=== PATIENT | male | born 1985 | race Two or more races ===

== ENCOUNTER 2025-01-26 16:07 | Inpatient (IN) | payer MEDICAID, OTHER, SELFPAY ==
[2025-01-26 16:29] VITALS: BP 166/116; PULSE 108; RESP 16; TEMP 36.6; O2SAT 97
[2025-01-26 17:00] VITALS: BP 155/104; PULSE 92
[2025-01-26 18:00] VITALS: BP 161/110; PULSE 100
--- NOTE | 2025-01-26 18:07 | PC.ADMIT ---
Marquez was BIBA from [facility]. Upon arrival, he is alert, oriented to person only. But there is a language barrier (He is from [facility] and speaks kriol). He denied ever being in a mental health facility. He was cooperative with skin and safety check. His skin check was unremarkable, except for a horizontal scar across his throat. When asked why he is here, he repeatedly touches his throat, I need help with my throat, there is something in there, I feel it. He states I eat or drink and it goes down but (he gestures upward) I feel He manages to make his needs known. When asked about the scar, he became tearful and said I killed myself , four months ago . Through the clay miner yamilet he was able to admit he still wanted to stab himself , but agrees to stay safe here and seek staff if needed. He is not a smoker, does not drink alcohol or use any illicit substances. He is [employer] and has no allergies or dietary restrictions. He has not been compliant with his medications, mostly due to the concerns about his throat. He last took his lisinopril 2 days ago. His BP is elevated, hospitalist consult placed and this nurse paged him regarding BP results. Orders obtained. He signed a CV with Jyoti Ramos NP. He is on 15 minute safety checks. This nurse gave him an orientation sheet that is polish/kriol for his assistance.
--- OUTSIDE RECORDS SUMMARY | 2025-01-26 18:20 | XMS_ITS | Encounter Summary ---
Author Organization [employer] Address [address] [place] [address] Care Team Providers Care Digital Imaging Technician Name Role Phone Miguel Kwok MD Primary Care Provider [phone] Reason for Visit * Reason Comments Referral ENT trouble swallowing Encounter Details Date Type Department Care Team (Late st Contact Info) Description 01/23/2025 8:40 AM EDT Office Visit [facility] MAIN ADULT [address] [place] [address] Miguel Kwok MD [address] [place] [address] Bloating (Primary Dx) Social History Tobacco Use Types Packs/Day Years Used Date Smoking Tobacco: Never Smokeless Tobacco: Never Alcohol Use Standard Drinks/Week Comments Not Currently 0 (1 standard drink = 0.6 oz pur e alcohol) stop after stroe may 2024 Depression Answer Date Recorded Patient Health Questionnaire-9 Score 14 10/24/2024 Patient Health Questionnaire-9 Score 14 10/24/2024 Last PHQ-9: Questionnaire Data Not on file 0 10/24/2024 Housing Stability Answer Date Recorded What is your housing situation today? I do not have housing (Staying with others, in a hotel, in a snf, living outside on the street, on a beach, in a car, or in a park 11/14/[address] you li ve. Do you have problems with any of the following? None of the above 11/14/2024 Food Insecurity Answer Date Recorded Within the past 12 months, y ou worried that your food would run out before you got money to buy more: Never True 08/04/2024 Within the past 12 months,th e food you bought just didn't last and you didn't have enough money to get more: Never True Transportation Answer Date Recorded In the past 12 months, has l ack of transportation kept you from medical appts, meetings, work or from getting things needed for daily living? No 11/14/2024 Utilities Answer Date Recorded In the past 12 months, has t he electric, gas, oil or water company threatened to shut off services in your home? No 08/04/2024 Depression Answer Date Recorded Patient Health Questionnaire-2 Score 2 11/14/2024 Internet Access Answer Date Recorded Internet Access Q1 Yes 08/04/2024 Internet Access Q2 Not on file 08/04/2024 Sex and Gender Information Value Date Recorded Sex Assigned at Male 08/12/2022 2:34 PM EDT Legal Sex Male 2:34 PM EDT Gender Identity Male 09/12/2022 2:01 PM EST Sexual Orientation Choose not to disclose 2022 2:01 PM EDT documented as of this encounter Last Filed Vital Signs Vital Sign Reading Time Taken Comments Blood Pressure 138/98 01/23/2025 9:15 AM EDT Pulse 100 01/23/2025 9:13 AM EDT Temperature 36.4 ??C (97.5 ??F) 01/23/2025 9:13 AM ED T Respiratory Rate - - Oxygen Saturation 98% 01/23/2025 9:13 AM EDT Inhaled Oxygen Concentration - - Weight 67.3 kg (148 lb 6.4 oz) 01/23/2025 9:13 A M EDT Height 173.7 cm (5' 8.4 ) 01/23/2025 9:13 AM EDT Body Mass Index 22.3 01/23/2025 9:13 AM EDT documented in this encounter Progress Notes * Miguel Kwok MD - 01/23/2025 8:40 AM EDT [address] [id number] [email or web address] History of Present Illness: Patient is a 39 y.o. male who presents today for: F/u Abdominal discomfort Patient complains of abdominal discomfot and says that he has gas in the stomach Reports of bloating Throat discomfort Patient complains of throat discomfort States he feels that throat discomfort due to gastritis Anxiety Patient states he still has anxiety with sleep disturbances Patient's specialist appt is pending Vital Signs Vitals: 01/23/25 0913 01/23/25 0915 BP: (!) 143/101 (!) 138/98 BP Location: Left arm Right arm Patient Position: Sitting Sitting BP Cuff Size: Adult Adult Pulse: 100 Temp: 97.5 ??F (36.4 ??C) TempSrc: Oral SpO2: 98% Weight: 148 lb 6.4 oz (67.3 kg) Height: 5' 8.4 (1.737 m) Review of Systems ROS negative expect as stated in HPI Physical Exam Body mass index is 22.3 kg/m??. Physical Exam Constitutional: Appearance: Normal appearance. Comments: Pt is able to talk without muffling of sound. HENT: Head: Normocephalic and atraumatic. Cardiovascular: Rate and Rhythm: Normal rate and regular rhythm. Pulmonary: Effort: Pulmonary effort is normal. Breath sounds: Normal breath sounds. Skin: General: Skin is warm. Comments: There is a scar noticed on the lower anterior neck, mild tenderness around the scar, no Erythema or edema Neurological: Mental Status: He is alert. Psychiatric: Mood and Affect: Affect is flat. Assessment and Plan Patient is a 39 y.o. male: Bloating Likely GERD Edu the Patient on diet modifications and given printout Rx pantoprazole 40mg Insomnia Patient also complains of anxiety Recommended breathing exercises and fast walking for 30 min Diagnoses and all orders for this visit: Bloating No follow-ups on file. Medical History No Known Allergies Current Outpatient Medications on File Prior to Visit Medication Sig Dispense Refill acetaminophen (Tylenol) 500 MG tablet Take 1 tablet (500 mg) by mouth every 8 (eight) hours if needed for moderate pain or mild pain. (Patient not taking: Reported on 01/23/2025) 30 tablet 2 aluminum-magnesium hydroxide-simethicone (Maalox) 200-200-20 MG/5ML suspension Take 30 mL by mouth before breakfast, before lunch, before evening meal, and at bedtime. (Patient not taking: Reported on 01/23/2025) 355 mL 1 aspirin 81 MG chewable tablet Chew 1 tablet (81 mg) Once per day. (Patient not taking: Reported on 01/23/2025) 90 tablet 1 atorvastatin (Lipitor) 80 MG tablet Take 1 tablet (80 mg) by mouth Once per day. (Patient not taking: Reported on 01/23/2025) 90 tablet 1 Benzocaine-Menthol (Cepacol Extra Strength) 15-2.6 MG lozenge Dissolve 1 lozenge in the mouth every2 (two) hours. (Patient not taking: Reported on 01/23/2025) 60 lozenge 1 buPROPion XL (Wellbutrin XL) 150 MG 24 hr tablet Take 1 tablet (150 mg) by mouth Once per day. Do not crush, chew, or split. (Patient not taking: Reported on 01/23/2025) buPROPion XL (Wellbutrin XL) 150 MG 24 hr tablet take 1 tablet by mouth every morning for 30 days (Patient not taking: Reported on 01/23/2025) 30 tablet 0 Diclofenac Sodium 1 % gel Apply 2 g topically 3 times daily. (Patient not taking: Reported on 01/23/2025) 100 g 1 escitalopram (Lexapro) 20 MG tablet Take 1 tablet (20 mg) by mouth Once per day. (Patient not taking: Reported on 01/23/2025) 30 tablet 3 hydrOXYzine HCl (Atarax) 25 MG tablet Take 1 tablet (25 mg) by mouth every 8 (eight) hours if needed for itching. Do not drive or operate machinery while being on the med (Patient not taking: Reported on 01/23/2025) 90 tablet 1 hydrOXYzine HCl (Atarax) 25 MG tablet take 1 tablet by mouth every 8 hours as needed for anxiety (Patient not taking: Reported on 01/23/2025) 90 tablet 0 lisinopril 40 MG tablet take 1 tablet by mouth every day for hypertension (Patient not taking: Reported on 01/23/2025) 30 tablet 2 losartan (Cozaar) 100 MG tablet Take 1 tablet (100 mg) by mouth Once per day. (Patient not taking: Reported on 01/23/2025) 90 tablet 3 LYCOPENE PO Take 1 tablet by mouth Once per day. (Patient not taking: Reported on 11/14/2024) OLANZapine (ZyPREXA) 10 MG tablet Take 1 tablet (10 mg) by mouth at bedtime. (Patient not taking: Reported on 12/28/2024) OLANZapine (ZyPREXA) 10 MG tablet take 1 tablet by mouth once a day at bedtime (Patient not taking:Reported on 01/23/2025) 30 tablet 0 OLANZapine (ZyPREXA) 5 MG tablet Take 1 tablet (5 mg) by mouth Once per day. (Patient not taking: Reported on 01/23/2025) OLANZapine (ZyPREXA) 5 MG tablet Take 1 tablet by mouth at bedtime (Patient not taking: Reported on01/23/2025) 30 tablet 1 pantoprazole (ProtoNix) 40 MG EC tablet Take 1 tablet (40 mg) by mouth before breakfast. Do not crush, chew, or split. (Patient not taking: Reported on 01/23/2025) pantoprazole (ProtoNix) 40 MG EC tablet Take 1 tablet by mouth daily. (Patient not taking: Reportedon 01/23/2025) 30 tablet 0 ramelteon (Rozerem) 8 MG tablet Take 1 tablet (8 mg) by mouth at bedtime. (Patient not taking: Reported on 01/23/2025) triamcinolone (Kenalog) 0.5 % cream Apply topically 2 times daily. (Patient not taking: Reported on01/23/2025) 45 g 1 venlafaxine XR (Effexor XR) 75 MG 24 hr capsule take 3 cap Orally daily (Patient not taking: Reported on 01/23/2025) 90 capsule 2 No current facility-administered medications on file prior to visit. No past medical history on file. No past surgical history on file. Family History Problem Relation Name Age of Onset No Known Problems Mother No Known Problems Father Social History Socioeconomic History Marital status: Single Spouse name: Not on file Number of children: Not on file Years of education: Not on file Highest education level: Not on file Occupational History Not on file Tobacco Use Smoking status: Never Smokeless tobacco: Never Vaping Use Vaping status: Never Used Substance and Sexual Activity Alcohol use: Not Currently Comment: stop after stroe may 2024 Drug use: Never Sexual activity: Not on file Other Topics Concern Not on file Social History Narrative Not on file Social Drivers of Health Food Insecurity: Low Risk (08/04/2024) Food Insecurity Within the past 12 months, you worried that your food would run out before you got money to buy more:: Never True Within the past 12 months,the food you bought just didn't last and you didn't have enough money to get more: : Never True Transportation Needs: Low Risk (11/14/2024) Transportation In the past 12 months, has lack of transportation kept you from medical appts, meetings, work or from getting things needed for daily living? : No Recent Concern: Transportation Needs - High Risk (10/24/2024) Transportation In the past 12 months, has lack of transportation kept you from medical appts, meetings, work or from getting things needed for daily living? : Yes, it has kept me from medical appointments or getting medications. Intimate Partner Violence: Not At Risk (09/30/2024) Received from [facility] Intimate Partner Violence Are you denied basic needs such as food, clothing, or medical care?: No In the past 12 months have you been in a relationship with a person who hurts, threatens, or tries to control you?: No Are you denied basic needs such as food, clothing, or medical care?: No In the past 12 months have you been in a relationship with a person who hurts, threatens, or tries to control you?: No Housing Stability: High Risk (11/14/2024) Housing Stability What is your housing situation today?: I do not have housing (Staying with others, in a hotel, in ashelter, living outside on the street, on a beach, in a car, or in a park Think about the place you live. Do you have problems with any of the following? : None of the above Miguel Kwok MD documented in this encounter Plan of Treatment Upcoming Encounters Date Type Department Care Team (Late st Contact Info) Description 02/09/2025 9:40 AM EDT Office Visit [facility] MAIN ADULT [address] [place] [id number] Miguel Kwok MD [address] [place] [phone] documented as of this encounter Visit Diagnoses Diagnosis Bloating- Primary Flatulence, eructation, and gas pain documented in this encounter Additional Health Concerns Assessment Noted Time PHQ-9 Depression Total Score: 14 025 12:48 PM EST documented as of this encounter Care Teams Digital Imaging Technician Relationship Specialty Start Date End Date Miguel Kwok MD [address] [place] [address] PCP - General 10/12/21 documented as of this encounter
--- OUTSIDE RECORDS SUMMARY | 2025-01-26 18:21 | XMS_ITS | Encounter Summary ---
Author Organization [employer] Address [address] 7 [place] [address] Care Team Providers Care Curatorial Specialist Name Role Phone Miguel Kwok MD Primary Care Provider [phone] Reason for Visit * Reason Onset Date Comments Advice Only 08/29/2024 Encounter Details Date Type Department Care Team ([facility] Contact Info) Description 08/29/2024 Telephone [facility] [address] [place] [address] Miguel Kwok MD [address] [place] [address] Advice Only Social History Tobacco Use Types Packs/Day Years Used Date Smoking Tobacco: Never Smokeless Tobacco: Never Alcohol Use Standard Drinks/Week Comments Never 0 (1 standard drink = 0.6 oz pur e alcohol) Housing Stability Answer Date Recorded What is your housing situation today? I have patricio espinal 08/04/[address] you li ve. Do you have problems with any of the following? None of the above 08/04/2024 Food Insecurity Answer Date Recorded Within the [...] getting things needed for daily living? No 08/04/2024 Utilities Answer Date Recorded In the past 12 months, has t he electric, gas, oil or water company threatened to shut off services in your home? No 08/04/2024 Depression Answer Date Recorded Patient Health Questionnaire-2 Score 0 08/04/2024 Internet Access Answer Date Recorded Internet Access Q1 Yes 08/04/2024 Internet Access Q2 Not on file 08/04/2024 Sex and Gender Information Value Date Recorded Sex Assigned at Male 08/12/2022 2:34 PM EDT Legal Sex Male 2:34 PM EDT Gender Identity Male 09/12/2022 2:01 PM EST Sexual Orientation Choose not to disclose 2022 2:01 PM EDT documented as of this encounter Miscellaneous Notes * Telephone Encounter - Robert Edna - 08/29/2024 10:29 AM EST Comments Patient Needs A. Letter From His Doctor Stating That He Is Able To Work. Pt Needs This As Soon As Possible Because He's Been Calling for 2. Weeks Now. Romansh Creole Language Assessment Notes 1st attempt no answer. msrn 2nd attempt no answer. msrn documented in this encounter Plan of Treatment Upcoming Encounters Date Type Department Care Team (Late st Contact Info) Description 02/09/2025 9:40 AM EDT Office Visit [facility] MAIN ADULT [address] [place] [phone] Miguel Kwok MD [address] [place] [phone] documented as of this encounter Visit Diagnoses Not on filedocumented in this encounter Care Teams Curatorial Specialist Relationship Specialty Start Date End Date Miguel Kwok MD [address] [place] [phone] PCP - General 10/12/21 documented as of this encounter
--- OUTSIDE RECORDS SUMMARY | 2025-01-26 18:21 | XMS_ITS | Encounter Summary ---
Author Organization [facility] Address [address] [place] [address] Phone Care Team Providers Care Digital Campaign Manager Name Role Phone Unavailable Primary Care Provider Unavailabl e Encounter Details Date Type Department Care Team (Late st Contact Info) Description 12/12/2019 Telephone [facility] [address] [place] [address] Tasneem Harp MD, PhD [address] [place] [phone] Social History Tobacco Use Types Packs/Day Years Used Date Smoking Tobacco: Never Sex and Gender Information Value Date Recorded Sex Assigned at Male 06/17/2024 3:40 PM EDT Legal Sex Male 8:06 AM EDT Gender Identity Male 06/17/2024 3:40 PM EDT Sexual Orientation Straight 01/24/2025 9: 21 AM EDT documented as of this encounter Plan of Treatment Not on file documented as of this encounter Visit Diagnoses Not on filedocumented in this encounter Additional Health Concerns Infection Onset Date Last Indicated Resolved Time COVID-19 Rule Out 2020 2020 2020 3:50 PM EDT documented as of this encounter
--- OUTSIDE RECORDS SUMMARY | 2025-01-26 18:21 | XMS_ITS | Clinical Summary ---
Author Organization [employer] Address [address] [facility] 7t [place] [address] Care Team Providers Care Computerized Machine Fabric Cutter Name Role Phone Miguel Kwok MD Primary Care Provider [phone] Allergies No known active allergies Medications * This document contains information received from the source organization and may not represent a complete record from that organization. LYCOPENE PO Take 1 tablet by mouth Once per day. 025 Active aspirin 81 MG chewable tabletIndications :Mixed hyperlipidemia Chew 1 tablet (81 mg) Once per day. 90 tablet 1 025 Active Additional Information Patient not taking.Reported on 01/23/2025 atorvastatin (Lipitor) 80 MG tabletIndications :Mixed hyperlipidemia Take 1 tablet (80 mg) by mouth Once per day. 90 tablet 1 025 Active Additional Information Patient not taking.Reported on 01/23/2025 escitalopram (Lexapro) 20 MG tabletIndications :Moderate episode of recurrent major depressive disorder (CMS/HCC) Take 1 tablet (20 mg) by mouth Once per day. 30 tablet 3 025 Active Additional Information Patient not taking.Reported on 01/23/2025 losartan (Cozaar) 100 MG tabletIndications :HTN (hypertension), benign Take 1 tablet (100 mg) by mouth Once per day. 90 tablet 3 12/01/19 25 4:07 PM EST 025 2025 Active Additional Information Patient not taking.Reported on 01/23/2025 triamcinolone (Kenalog) 0.5 % creamIndications: Irritant contact dermatitis due to cosmetics Apply topically 2 times daily. 45 g 1 12/01/19 25 4:07 PM EST 025 Active Additional Information Patient not taking.Reported on 01/23/2025 OLANZapine (ZyPREXA) 10 MG tablet Take 1 tablet (10 mg) by mouth at bedtime. Active Additional Information Patient not taking.Reported on 12/28/2024 ramelteon (Rozerem) 8 MG tablet Take 1 tablet (8 mg) by mouth at bedtime. 025 2025 Active Additional Information Patient not taking.Reported on 01/23/2025 hydrOXYzine HCl (Atarax) 25 MG tablet Take 1 tablet (25 mg) by mouth every 8 (eight) hours if needed for itching. Do not drive or operate machinery while being on the med 90 tablet 1 Active Additional Information Patient not taking.Reported on 01/23/2025 buPROPion XL (Wellbutrin XL) 150 MG 24 hr tablet Take 1 tablet (150 mg) by mouth Once per day. Do not crush, chew, or split. Active Additional Information Patient not taking.Reported on 01/23/2025 OLANZapine (ZyPREXA) 5 MG tablet Take 1 tablet (5 mg) by mouth Once per day. Active Additional Information Patient not taking.Reported on 01/23/2025 pantoprazole (ProtoNix) 40 MG EC tablet Take 1 tablet (40 mg) by mouth before breakfast. Do not crush, chew, or split. Active Additional Information Patient not taking.Reported on 01/23/2025 pantoprazole (ProtoNix) 40 MG EC tablet Take 1 tablet by mouth daily. 30 tablet 12/18/19 25 9:11 AM EST 025 Active Additional Information Patient not taking.Reported on 01/23/2025 buPROPion XL (Wellbutrin XL) 150 MG 24 hr tablet take 1 tablet by mouth every morning for 30 days 30 tablet 12/18/19 25 9:11 AM EST 025 Active Additional Information Patient not taking.Reported on 01/23/2025 lisinopril 40 MG tablet take 1 tablet by mouth every day for hypertension 30 tablet 2 12/18/19 25 9:11 AM EST 025 Active Additional Information Patient not taking.Reported on 01/23/2025 OLANZapine (ZyPREXA) 10 MG tablet take 1 tablet by mouth once a day at bedtime 30 tablet 12/18/19 9:11 AM EST Active Additional Information Patient not taking.Reported on 01/23/2025 hydrOXYzine HCl (Atarax) 25 MG tablet take 1 tablet by mouth every 8 hours as needed for anxiety 90 tablet 12/18/19 9:11 AM EST Active Additional Information Patient not taking.Reported on 01/23/2025 OLANZapine (ZyPREXA) 5 MG tablet Take 1 tablet by mouth at bedtime 30 tablet 1 12/18/19 9:11 AM EST 025 Active Additional Information Patient not taking.Reported on 01/23/2025 Diclofenac Sodium 1 % gelIndications:Ne ck pain Apply 2 g topically 3 times daily. 100 g 1 12/29/19 12:28 PM EDT 025 Active Additional Information Patient not taking.Reported on 01/23/2025 Benzocaine-Mentho l (Cepacol Extra Strength) 15-2.6 MG lozengeIndication s:Sore throat Dissolve 1 lozenge in the mouth every 2 (two) hours. 60 lozenge 1 12/29/19 12:28 PM EDT Active Additional Information Patient not taking.Reported on 01/23/2025 aluminum-magnesiu m hydroxide-simethi cone (Maalox) 200-200-20 MG/5ML suspensionIndicat ions:Sore throat Take 30 mL by mouth before breakfast, before lunch, before evening meal, and at bedtime. 355 mL 1 12/29/19 12:28 PM EDT 025 Active Additional Information Patient not taking.Reported on 01/23/2025 acetaminophen (Tylenol) 500 MG tabletIndications :Palpitation,Pene trating traumatic injury of neck,Sore throat Take 1 tablet (500 mg) by mouth every 8 (eight) hours if needed for moderate pain or mild pain. 30 tablet 2 12/29/19 12:28 PM EDT 025 Active Additional Information Patient not taking.Reported on 01/23/2025 venlafaxine XR (Effexor XR) 75 MG 24 hr capsule take 3 cap Orally daily 90 capsule 2 Active Additional Information Patient not taking.Reported on 01/23/2025 Benzocaine-Mentho l (Cepacol Extra Strength) 15-2.6 MG lozengeIndication s:Sore throat Dissolve 1 lozenge in the mouth every 2 (two) hours. 20 lozenge 1 025 2024 Discontinued Active Problems Problem Noted Date Diagnosed Date Financial insecurity 11/16/2024 Housing insecurity 11/03/2024 Social problem 10/24/2024 Moderate episode of recurrent major depressive d isorder 10/24/2024 DOMINICK (generalized anxiety disorder) 10/24/2024 Unemployment 10/24/2024 Self-injurious behavior 10/24/2024 Suicide attempt 09/30/2024 Penetrating traumatic injury of neck 09/19/2024 Cerebrovascular accident (CV A) due to thrombosis of cerebral artery 06/16/2024 Back strain 04/15/2023 Dental infection 04/15/2023 Fracture of proximal phalanx of finger 3 Hypertriglyceridemia 06/12/2022 Unspecified pterygium of left eye 12/12/2019 Overview (04/15/2023): 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 F/u 1 week for recheck with Dr. Palomares in [place] because he is unable to travel to [facility] next week, sooner if increased pain, redness, discharge, or as needed. As long as cornea epi defect healed then, can see me in [place] Jun 05 for POM 1 check with refraction. 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 Date Type Department Care Team Description 01/23/2025 8:40 AM EDT Office Visit [facility] MAIN ADULT [address] [place] [address] Miguel Kwok MD Bloating (Primary Dx) 12/28/2024 2:20 PM EDT Office Visit [facility] MAIN ADULT [address] [place] [address] Miguel Kwok MD Neck pain (Primary Dx); Palpitation; Anxiety; Penetrating traumatic injury of neck; Sore throat 12/28/2024 Telephone [facility] FINANCIAL ASSIST [address] [place] [address] MarinaAlisa Claire 12/28/2024 Telephone [facility] FINANCIAL ASSIST [address] [place] [address] GrayAlisa Claire 12/16/2024 9:40 AM EST Office Visit [facility] MAIN ADULT [address] [place] [address] Miguel Kwok MD Chronic superficial gastritis without bleeding (Primary Dx); Mood disorder due to known physiological condition, unspecified; Irritant contact dermatitis due to cosmetics 12/01/2024 3:00 PM EST Office Visit [facility] MAIN ADULT [address] [place] [address] Miguel Kwok MD Irritant contact dermatitis due to cosmetics (Primary Dx); Mixed hyperlipidemia; HTN (hypertension), benign; Moderate episode of recurrent major depressive disorder ([facility]/HCC) 11/21/2024 Patient Outreach [facility] MAIN CASE [facility] [address] [place] [address] Jose Torrez 11/14/2024 10:00 AM EST Office Visit [facility] MAIN ADULT [address] [place] [address] Miguel Kwok MD Mixed hyperlipidemia; HTN (hypertension), benign from Last 3 Months Immunizations Name Administration Dates Next Due Influenza injectable quadriv alent IIV4 with preservative 07/11/2019 Influenza, seasonal, injectable, preservative fr ee 06/30/2024 Tdap 09/19/2024,02/20/2023 Family History Medical History Relation Name Comments No Known Problems Father No Known Problems Mother Relation Name Status Comments Father Mother Social History Tobacco Use Types Packs/Day Years Used Date Smoking Tobacco: Never Smokeless Tobacco: Never Tobacco Cessation:Counseling Given: Yes Alcohol Use Standard Drinks/Week Comments Not Currently [...] with others, in a hotel, in a care home, living outside on the street, on a [...] not to disclose 2022 2:01 PM EDT Last Filed Vital Signs Vital Sign Reading Time Taken Comments Blood Pressure 138/98 01/23/2025 9:15 AM EDT Pulse 100 01/23/2025 9:13 AM EDT Temperature 36.4 ??C (97.5 ??F) 01/23/2025 9:13 AM ED T Respiratory Rate 16 09/14/2024 5:00 PM EST Oxygen Saturation 98% 01/23/2025 9:13 AM EDT Inhaled Oxygen Concentration - - Weight 67.3 kg (148 lb 6.4 oz) 01/23/2025 9:13 A M EDT Height 173.7 cm (5' 8.4 ) 01/23/2025 9:13 AM EDT Body Mass Index 22.3 01/23/2025 9:13 AM EDT Plan of Treatment Upcoming Encounters Date Type Department Care Team (Late st Contact Info) Description 02/09/2025 9:40 AM EDT Office Visit [facility] MAIN ADULT [address] [place] [phone] Miguel Kwok MD [address] [place] [phone] Health Maintenance Due Date Last Done Comments HIV Screening 1983 Family Planning (PISQ) 1998 Hepatitis C Screening 2001 Hepatitis B Vaccines (1 of 3 - 19+ 3-dose series) 2002 COVID-19 Vaccine ( season) 2024 09/10/2021, 08/10/2021 Depression Monitoring 05/14/2025 11/14/2024, 025 Diabetes: Hemoglobin A1C 10/01/2025 024, 08/04/2024, 07/04/2022, Additional history exists Depression Screening 11/14/2025 11/14/2024, 10/24/19 25 SDOH Screening 11/14/2025 11/14/2024 Alcohol/Substance Use Screening 01/23/2026 01/23/2025 Tobacco Screening 01/23/2026 01/23/2025 Lipid Panel 08/04/2029 08/04/2024, 06/13, 07/09/2021 Zoster Vaccines (1 of 2) 2033 DTaP/Tdap/Td Vaccines (3 - Td or Tdap) 09/19/2034 09/19/2024, 02/20/2023 RSV Patients and Patients Aged 60 years or older (1 - 1-dose 75+ series) 2058 Influenza Vaccine Completed 06/30/2024, 07/11/2019 HIB Vaccines Aged Out No longer eligi ble based on patient's age to complete this topic HPV Vaccines Aged Out No longer eligi ble based on patient's age to complete this topic Hepatitis A Vaccines Aged Out No long er eligible based on patient's age to complete this topic IPV Vaccines Aged Out No longer eligi ble based on patient's age to complete this topic Meningococcal Vaccine Aged Out No nahid selvin eligible based on patient's age to complete this topic Pneumococcal Vaccine: Pediatrics (0 to 5 Years) and At-Risk Patients (6 to 49) Years) Aged Out No longer eligible based on patient's age to complete this topic RSV under 20 months Aged Out No longe r eligible based on patient's age to complete this topic Rotavirus Vaccines Aged Out No longer eligible based on patient's age to complete this topic Procedures Procedure Name Priority Date/Time Associated Diagnosis Comments POC HERNANDEZ ID NOW STREP A Routine 12/28/2024 11:48 AM EDT Neck pain LIPID PANEL, STANDARD Routine 08/04/2024 7:22 PM EDT Prediabetes Mixed hyperlipidemia HTN (hypertension), benign Cerebrovascular accident (CVA) due to thrombosis of cerebral artery (CMS/HCC) POCT GLYCATED HEMOGLOBIN, TOTAL Routine 08/04/2024 6:34 PM EDT Prediabetes from Last 3 Months or Most Recently Relevant to Health Maintenance Results * POCT ID NOW Rapid Strep A manually resulted (12/28/2024 11:48 AM EDT) Rapid Strep A Screen Negative Negative, None Detected Swab 12/28/2024 11:4 8 AM EDT Miguel Kwok MD POINT OF CARE TEST ENTER/EDIT ORDERABLES Final Result * Lipid Panel, Standard (08/04/2024 7:22 PM EDT) [facility] Cholesterol, Total 117 <200 mg/dL [facility] [place] [facility] 911 HDL Cholesterol 41 > OR = 40 mg/dL [facility] [place] [facility] Triglycerides 81 <150 mg/dL [facility] [place] [facility] LDL Cholesterol 60 mg/dL Ques t [employer] [facility] Comment: Reference range: <100 Desirable range <100 mg/dL for primary prevention; ?? <70 mg/dL for patients with CHD or diabetic patients with > or = 2 CHD risk factors. LDL-C is now calculated using the Benjamín-Zari calculation, which is a validated novel method providing better accuracy than the Friedewald equation in the estimation of LDL-C. Benjamín SS et al. VLADISLAV. 2013;310(19): 8418-9912 (http://education.[employer]/faq/GCB424) Chol/HDLC Ratio 2.9 <5.0 (calc) [facility] [place] [facility] Non-HDL Cholesterol 76 <130 mg/dL [facility] [place] [facility] Comment: For patients with diabetes plus 1 major ASCVD risk factor, treating to a non-HDL-C goal of <100 mg/dL (LDL-C of <70 mg/dL) is considered a therapeutic option. Blood Venous blood specimen / Unknown 08/04/2024 7:22 PM EDT 08/05/2024 4:07 AM EDT Narrative [facility] - 08/09/2024 3:46 PM EDT FASTING:UNKNOWN FASTING: UNKNOWN Result [facility] Melvin Ortiz MD LAB BLOOD ORDERABLES Final Re sult [facility] [address], [place] [address] [facility] [place] [facility] [address] [place] [phone] * (ABNORMAL) POCT A1C (08/04/2024 6:34 PM EDT) Hemoglobin A1C 6.1(A) 4.0 - 6.0 % Blood 08/04/2024 6:34 PM EDT Melvin Ortiz MD POINT OF CARE TEST ENTER/EDIT ORDERABLES Final Result from Last 3 Months or Most Recently Relevant to Health Maintenance Insurance [facility] FULL Care Teams Computerized Machine Fabric Cutter Relationship Specialty Start Date End Date Miguel Kwok MD [address] [place] [address] [facility] - General 10/12/21
--- OUTSIDE RECORDS SUMMARY | 2025-01-26 18:21 | XMS_ITS | Referral Summary ---
Author Organization [facility] r Address [address] [place] [address] Phone Care Team Providers Care Drop Machine Operator Name Role Phone Unavailable Primary Care Provider Unavailabl e Encounters Date Type Department Care Team Description 01/13/2025 Telephone Department of Otolaryngology [address] [place] [address] Pcp-Confirmed, No Appointment from Last 3 Months Allergies No known active allergies Medications lisinopriL (PRINIVIL,ZESTR IL) 10 mg tablet TAKE ONE (1) TABLET BY MOUTH EVERY DAY 0 Active ofloxacin (OCUFLOX) 0.3% ophthalmic solution Administer 1 drop into the left eye 4 (four) times a day. 5 mL 0 Active amLODIPine (NORVASC) 5 mg tablet TAKE 1 TABLET BY MOUTH EVERY DAY 0 Active BANOPHEN 25 mg capsule TAKE ONE (1) CAPSULE BY MOUTH EVERY NIGHT NEEDED 9 Active cephalexin (KEFLEX) 500 MG capsule TAKE 1 CAPSULE 4 TIMES A DAY 9 Active ferrous sulfate 325 (65 FE) MG tablet TAKE ONE (1) TABLET BY MOUTH EVERY DAY 2 9 Active ibuprofen (ADVIL,MOTRIN) 600 MG tablet TK 1 T PO Q 6 H 0 9 Active hydrocortisone 2.5 % ointment APPLY TOPICALLY TWO (2) TIMES EVERY DAY A THIN LAYER TO THE AFFECTED AREA(S) 3 9 Active prednisoLONE acetate (PRED FORTE) 1 % ophthalmic suspension Administer 1 drop into the left eye 4 (four) times a day. 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 Palomares in [place] because he is unable to travel to [facility] next week, sooner if increased pain, redness, discharge, or as needed. As long as cornea epi defect healed then, can see me in [place] Jun 05 for POM 1 check with refraction. Assessment & Plan (05/11/2020 9:32 AM EDT): POD1 s/p pterygium excision with conjunctival autograft and fibrin glue left eye Doing well Start Ofloxacin QID, Pred acetate 1% QID Start tobradex denny BID x 1 week, then at bedtime x 1 week OD No eye rubbing, no water in eye Wear shield when sleeping F/u 1 week, sooner if increased pain, redness, discharge, or as needed. Patient would like to be seen in [place]. Assessment & Plan (12/12/2019 3:28 PM EST): Present for 6 years and reports getting larger Symptomatic, with 3.25 D of K cyl And noticing worsening vision Discussed treatment options including observation with artificial tears vs surgical exicion; patient elects for excision RBA discussed, patient consented Follow up for pterygium excision with conj autograft and fibrin glue left eye Next available Pterygium eye, left 12/12/2019 Overview (12/12/2019): Added automatically from request for surgery [id number] Social History Tobacco Use Types Packs/Day Years Used Date Smoking Tobacco: Never Sex and Gender Information Value Date Recorded Sex Assigned at Male 06/17/2024 3:40 PM EDT Legal Sex Male 8:06 AM EDT Gender Identity Male 06/17/2024 3:40 PM EDT Sexual Orientation Straight 01/24/2025 9: 21 AM EDT Last Filed Vital Signs Vital Sign Reading Time Taken Comments Blood Pressure 141/100 05/10/2020 1:45 PM EDT Pulse 95 05/10/2020 1:45 PM EDT Temperature 36.1 ??C (97 ??F) 05/10/2020 1:19 PM EDT Respiratory Rate 18 05/10/2020 1:45 PM EDT Oxygen Saturation 98% 05/10/2020 1:45 PM EDT Inhaled Oxygen Concentration - - Weight 74.8 kg (165 lb) 05/10/2020 11:47 AM EDT Height 167 cm (5' 5.75 ) 05/10/2020 11:47 AM EDT Body Mass Index 26.84 05/10/2020 11:47 AM EDT Plan of Treatment Not on file Medical Devices Implanted Type Area Principal Process Engineer Device Identifier Shelf Expiration Date Model / Serial / Lot Kit Tissue Closure Duo * Sealant Fibri Glue Tisseel 4ml Frozen Kit Fibrin Sealant - [id number] - [id number] Implanted:Qty: 1 on 05/10/2020 by Tasneem Harp MD, PhD at [facility] Left: Eye [employer]Internatio nal 06/11/2021 [id number] / [id number] / [id number]
--- OUTSIDE RECORDS SUMMARY | 2025-01-26 18:21 | XMS_ITS | Encounter Summary ---
Author Organization [employer] Address [address] [place] [address] 7 h Floor [place] [id number] Care Team Providers Care Casting Associate Name Role Phone Miguel Kwok MD Primary Care Provider [phone] Encounter Details Date Type Department Care Team (Late st Contact Info) Description 09/12/2022 Telephone [facility] FINANCIAL ASSIST [address] [place] [address] Alisa Echols Social History Tobacco Use Types Packs/Day Years Used Date Smoking Tobacco: Never Assessed Sex and Gender Information Value Date Recorded Sex Assigned at Male 08/12/2022 2:34 PM EDT Legal Sex Male 2:34 PM EDT Gender Identity Male 09/12/2022 2:01 PM EST Sexual Orientation Choose not to disclose 2022 2:01 PM EDT documented as of this encounter Plan of Treatment Upcoming Encounters Date Type Department Care Team (Late st Contact Info) Description 02/09/2025 9:40 AM EDT Office Visit [facility] MAIN ADULT [address] [place] [address] Miguel Kwok MD [address] [place] [address] documented as of this encounter Visit Diagnoses Not on filedocumented in this encounter Care Teams Casting Associate Relationship Specialty Start Date End Date Miguel Kwok MD [address] [place] [address] PCP - General 10/12/21 documented as of this encounter
--- OUTSIDE RECORDS SUMMARY | 2025-01-26 18:21 | XMS_ITS | Encounter Summary ---
Author Organization [facility] r Address [address] [place] [address] Phone Care Team Providers Care Sampler And Test Preparer Name Role Phone Unavailable Primary Care Provider Unavailabl e Reason for Visit * Reason Onset Date Comments Appointment 01/13/2025 Encounter Details Date Type Department Care Team (Late st Contact Info) Description 01/13/2025 Telephone Department of Otolaryngology [address] [address] Pcp-Confirmed, No Appointment Social History Tobacco Use Types Packs/Day Years Used Date Smoking Tobacco: Never Sex and Gender Information Value Date Recorded Sex Assigned at Male 06/17/2024 3:40 PM EDT Legal Sex Male 8:06 AM EDT Gender Identity Male 06/17/2024 3:40 PM EDT Sexual Orientation Straight 01/24/2025 9: 21 AM EDT documented as of this encounter Miscellaneous Notes * Telephone Encounter - Lola Delgado - 01/13/2025 2:02 PM EDT Patient Reported Reason for Call Patient presents with Appointment Sugar, calling from [facility], in regard to scheduling new pt appt, Advised 7 business days TAT. Cb: [phone]; if unable to reach please call pt at [phone]. documented in this encounter Plan of Treatment Not on file documented as of this encounter Visit Diagnoses Not on filedocumented in this encounter
--- OUTSIDE RECORDS SUMMARY | 2025-01-26 18:21 | XMS_ITS | Encounter Summary ---
Author Organization [employer] Address [address] [facility] 7t [place] [address] Care Team Providers Care Arbor End Mainspring Former Name Role Phone Miguel Kwok MD Primary Care Provider [phone] Reason for Visit * Reason Comments Med Change Request Encounter Details Date Type Department Care Team ([facility] st Contact Info) Description 08/04/2024 Refill [facility] MAIN ADULT [address] [place] [address] Melvin Ortiz MD [address] [place] [address] Social History Tobacco Use Types Packs/Day Years [...] Description 02/09/2025 9:40 AM EDT Office Visit [facility] MAIN ADULT [address] [place] [phone] Miguel Kwok MD [address] [place] [address] documented as of this encounter Visit Diagnoses Not on filedocumented in this encounter Care Teams Arbor End Mainspring Former Relationship Specialty Start Date End Date Miguel Kwok MD [address] [place] [phone] PCP - General 10/12/21 documented as of this encounter
--- OUTSIDE RECORDS SUMMARY | 2025-01-26 18:21 | XMS_ITS | Clinical Summary ---
Author Organization [facility] r Address [address] [place] [address] Phone Care Team Providers Care Chimney Builder Brick Name Role Phone Unavailable Primary Care Provider Unavailabl e Allergies No known active allergies Medications lisinopriL [...] week for recheck with Dr. Palomares in [place] because he is unable to travel to [facility] [place], sooner if increased pain, redness, discharge, or as needed. As long as cornea epi defect healed then, can see me in [place] Jun 05 for POM 1 check with [...] Patient would like to be seen in [place]. Assessment & Plan (12/12/2019 3:28 PM EST): [...] (12/12/2019): Added automatically from request for surgery [id number] Encounters Date Type Department Care Team Description 01/13/2025 Telephone Department of Otolaryngology [address] [facility] [address] [place] [address] Pcp-Confirmed, No Appointment from Last 3 Months Family History Medical History Relation Name Comments Cataracts Neg Hx Diabetes Mellitus Neg Hx Glaucoma Neg Hx Social History Tobacco Use Types Packs/Day Years [...] 05/10/2020 11:47 AM EDT Plan of Treatment Health Maintenance Due Date Last Done Comments Diabetes Screening 1983 HIV Lifetime Screening 1983 Hepatitis B sAg Lifetime Screening 1983 Hepatitis C Antibody Lifetim e Screening 1983 LIPID PANEL 1983 THRIVE SCREENING 1983 Oral Health Screen 1983 HEIP Disability Screen 1988 BEHAVIORAL HEALTH SCREEN 1995 Psych Substance Use Screen 1995 DTAP/TDAP VACCINE (1 - Tdap) 2002 COVID-19 Vaccine ( - 2023-2 5 season) 2024 INFLUENZA VACCINE (#1) 2024 Zoster Vaccine (1 of 2) 2033 HPV VACCINES Aged Out No longer eligi ble based on patient's age to complete this topic IPV VACCINES Aged Out No longer eligi ble based on patient's age to complete this topic MENINGOCOCCAL B Aged Out No longer el igible based on patient's age to complete this topic Pneumonia Vaccine 0-49 Years Aged Out No longer eligible based on patient's age to complete this topic ROTAVIRUS VACCINES Aged Out No longer eligible based on patient's age to complete this topic Medical Devices Implanted Type Area Icu Tech Device Identifier Shelf Expiration Date Model / Serial / Lot Kit Tissue Closure Duo * Sealant Fibri Glue Tisseel 4ml Frozen Kit Fibrin Sealant - [id number] - [id number] Implanted:Qty: 1 on 05/10/2020 by Tasneem Harp MD, PhD at [facility] Left: Eye [employer]/Internatio nal 06/11/2021 [id number] / [id number] / [id number]
[2025-01-26 18:36] VITALS: BP 161/110
[2025-01-26] MEDS: lisinopriL 40 MG TABLET PO (18:36)
[2025-01-26 19:30] VITALS: BMI 24.9
--- NOTE | 2025-01-26 20:18 | PC.NURSE ---
Late entry for 1745 blood pressure remains elevated. He declines any physical symptoms associated with it at this time. Jyoti Oseguera CERTIFIED REAL ESTATE APPRAISER informed that med rec was completed and his bp is still elevated. A request was made to reach out to hospitalist for BP issues at this time. This nurse did as requested. Dr Griffith is hospitalist fire and explosion investigator. He was contacted and ordered were placed and lisinopril was given as ordered. Marquez is currently resting in bed after eating dinner. Next BP at 1900 142/92.
[2025-01-26 21:50] VITALS: BP 103/79; PULSE 79; RESP 16; TEMP 36.7; O2SAT 98
[2025-01-26] MEDS: Atorvastatin Calcium 80 MG TABLET PO (21:50)
[2025-01-26] MEDS: hydrOXYzine HCL 25 MG TABLET PO (21:50)
[2025-01-26] MEDS: traZODone HCL 50 MG TABLET PO (21:50)
[2025-01-26] MEDS: OLANZapine 10 MG TABLET PO (21:50)
--- NOTE | 2025-01-26 23:04 | P.CNHOSGPS_ITS ---
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 Patient would not elaborate on reason for being seen in [facility] or why he was transferred to psychiatric inpatient facility. Patient states he moved to the [facility] from [place] approximately 5 years prior and lives with family in the [place] area. Patient often referred to the fact that he needs care for his throat problems and that is why he was here at [facility]. Reviewed intake with nursing and patient was admitted from the [facility] for suicidal ideations in the fact that patient still wanted to stab himself and this required transfer to a psychiatric facility. There has been a long history of noncompliance with medications for psychiatric illness and patient does have history of auditory hallucinations. Patient currently denies any allergies to food or medications. Patient noted to have a blood pressure of 161/110 and patient received 1 dose of lisinopril 40 mg at 18:30. Request for repeat BP made. Patient currently denies any headache or visual changes. Patient denies any chest pain or shortness of breath at rest or with exertion. Patient denies any abdominal pain, nausea or vomiting. Patient does report problems swallowing food and/or pills and that he does not have the ability to burp and sometimes food or pills can get stuck in the throat area. Patient also reports mild burning in his throat often after eating or taking pills. Patient can lie on his back or side. Patient does have an unexplained weight loss but patient is unable to quantify how much weight he has lost over how much time. Patient reports appetite is often fair due to his throat problems. Patient denies any history of liver problems, hepatitis B or C, HIV or sexually transmitted diseases. Patient denies any use of alcohol, tobacco, marijuana or illicit drug use including IV drug abuse. Patient denies any surgeries. Labs have been ordered by the psychiatric provider and those are pending for the morning. Further medical assessment we will be needed once labs are available for review. The hospitalist group will continue to follow. Current medical concerns include hypertension, GERD, dysphagia and unexplained weight loss. Plan of care will be discussed in the assessment and plan. Review of Systems Review of Systems: Patient denies any current chest pain, shortness of breath at rest or with exertion, headache, visual changes, abdominal pain, nausea, vomiting, dysuria. Patient denies any history of hepatitis B or C, HIV or sexually transmitted diseases. Patient denies any recent trauma or falls. Patient does report that he attempted to cut his throat approximately 3 months prior. Patient is currently denying any suicidal ideations at this time. Yes all other systems are reviewed and are negative PMFSH Cognitive capacity: Alert and orientated x3, flat affect with depressed mood Functional capacity: independent ambulation Pertinent family history: Patient did not provide Social History Household Members: Family Housing: Apartment Do you presently have visiting nurse or other home services: No Patient Tobacco Use Status: Never used Tobacco e-Cigarette/Vaping Use: Never Used Use of substances other than those prescribed or required for medical reasons: No Currently Displaying Signs/Symptoms of Drug Intoxication Withdrawal: No Synagogue Healthcare Practices: Jewish Advance Directives: No Advance Directives Information Provided: No Do you have thoughts of harming others: None Do you have a plan to hurt others: No Plan Recently lost weight without trying: Unsure Nutrition Risks: Difficulty swallowing Ebola Risk: Travel/Contact With Anyone From Affected Area/s: No Has Patient Experienced Ebola Symptoms: No Meds Allergies Allergy/AdvReac Type Severity Reaction Status Date / Time No Known Allergies Allergy Verified 01/26/25 16:28 Active Medications: Current Medications Acetaminophen (Acetaminophen 325 Mg Tablet) 650 mg PO Q6H PRN PRN Reason: Headache/Pain, Scale 1-10 Al Hydroxide/Mg Hydroxide (Magnesium Hydrox/Alum Hydrox 30 Ml Oral.Susp) 30 ml PO Q6H PRN PRN Reason: Heartburn/Nausea Aspirin (Aspirin 81 Mg Tab.Chew) 81 mg PO DAILY [facility] Atorvastatin Calcium (Atorvastatin Calcium 80 Mg Tablet) 80 mg PO BEDTIME [facility] Last Admin: 01/26/25 21:50 Dose: 80 mg Bupropion HCl (Bupropion Hcl Xl 150 Mg Tab.Er.24h) 150 mg PO DAILY [facility] Escitalopram Oxalate (Escitalopram Oxalate 20 Mg Tablet) 20 mg PO DAILY [facility] Hydroxyzine HCl (Hydroxyzine Hcl 25 Mg Tablet) 25 mg PO Q6H PRN PRN Reason: mild anxiety Last Admin: 01/26/25 21:50 Dose: 25 mg Lisinopril (Lisinopril 40 Mg Tablet) 40 mg PO DAILY [facility]; Protocol Last Admin: 01/26/25 18:36 Dose: 40 mg Magnesium Hydroxide (Milk Of Magnesia 30 Ml Oral.Susp) 30 ml PO DAILY PRN PRN Reason: Constipation Nicotine Polacrilex (Nicotine Polacrilex 2 Mg Gum) 4 mg BUCCAL Q2H PRN PRN Reason: Nicotine Cravings Olanzapine (Olanzapine 5 Mg Tablet) 5 mg PO DAILY [facility] Olanzapine (Olanzapine 10 Mg Tablet) 10 mg PO BEDTIME [facility] Last Admin: 01/26/25 21:50 Dose: 10 mg Omeprazole (Omeprazole 20 Mg Capsule.Dr) 20 mg PO DAILY@0630 [facility] Trazodone HCl (Trazodone Hcl 50 Mg Tablet) 50 mg PO BEDTIME MRX1 PRN PRN Reason: Insomnia Last Admin: 01/26/25 21:50 Dose: 50 mg Home Medications ?Medication ?Instructions ?Recorded ?Confirmed ?Last Taken ?Type aspirin 81 mg tablet 81 mg PO DAILY 01/26/25 01/26/25 Unknown History atorvastatin 80 mg tablet 80 mg PO BEDTIME 01/26/25 01/26/25 Unknown History bupropion HCl 150 mg 24 hr tablet, 150 mg PO QAM 01/26/25 01/26/25 Unknown History extended release escitalopram oxalate 20 mg tablet 20 mg PO DAILY 01/26/25 01/26/25 Unknown History hydroxyzine HCl 25 mg tablet 25 mg PO TID PRN Anxiety 01/26/25 01/26/25 Unknown History lisinopril 40 mg tablet 40 mg PO DAILY 01/26/25 01/26/25 01/24/25 History losartan 100 mg tablet 100 mg PO DAILY 01/26/25 01/26/25 Unknown History olanzapine 10 mg tablet 10 mg PO BEDTIME 01/26/25 01/26/25 Unknown History olanzapine 5 mg tablet 5 mg PO DAILY 01/26/25 01/26/25 Unknown History pantoprazole 40 mg tablet,delayed 40 mg PO DAILY 01/26/25 01/26/25 Unknown History release Results Labs Labs: pending Assessment and Plan (1) HTN (hypertension): Qualifiers: Hypertension type: primary hypertension Qualified Code(s): I10 - Essential (primary) hypertension Status: Acute (2) Dysphagia: Qualifiers: Dysphagia type: oropharyngeal phase Qualified Code(s): R13.12 - Dysphagia, oropharyngeal phase Status: Acute (3) GERD (gastroesophageal reflux disease): Qualifiers: Esophagitis presence: without esophagitis Qualified Code(s): K21.9 - Gastro-esophageal reflux disease without esophagitis Status: Acute (4) Unexplained weight loss: Status: Acute (5) Tobacco dependence: Status: Acute Plan Patient is a 39-year-old male original [place] and 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 Patient continued to state that he wanted to stab himself. Pt has hx of previous attempt 3 months prior and cut his throat. Incidentally patient noted to have hypertension with a blood pressure of 161/110, reports of significant acid reflux with problems swallowing food and pills. Patient indicated that he was here for his throat problems. Patient has longstanding history of noncompliance to medications. Fish Skinning Machine Feeder used to obtain H/P. HTN -Lisinopril 40 mgs daily, if labs are stable can add HCTZ 12.5 to 25 mgs daily if BP remains elevated -Low salt diet -ECG -If ECG abnormal consider echo and cardiology consult -check BP Qshift X 5 days (or per Psychiatry protocol) -LIPID panel pending Dysphagia -Recommend ST evaluation first and if abnormal can consult GI -aspiration precautions -teeth are in fair repair, pt denies issues with chewing food GERD -Pt is on omperazole, adding H2B famotidine -prn MGAL on board -Avoid food triggers -Review labs, if H/H low consider stool for occult -GI consult if needed Unexplained Weight Loss -Smoke Chaser consult recommended -monitor wt daily -labs pending AM draw, we will follow Tobacco dependence -nicorette gum currently ordered per psychiatry The hospitalist group will continue to follow this patient for his HTN and GI issues. Physical Exam Vital Signs: Last Vital Signs Temp 98 F 01/26/25 16:29 Pulse 100 01/26/25 18:00 Resp 16 01/26/25 16:29 BP 161/110 H 01/26/25 18:36 Pulse Ox 97 01/26/25 16:29 BMI result Body Mass Index 24.9 Alert and orientated X3, able to answer questions with minimal input, chose not to answer some medical questions asked Neuro: CN II-X11 intact, no deficits, visual acuity intact EYES: PERRLA, EOM intact ENT: hearing intact, uvula midline, lips moist, nares patent no epistaxis, thyroid normal in size no goiter or nodules present, healed laceration mid frontal neck area noted Cardiac: S1 S2 RRR, no murmur, no JVD, no edema in Lower ext Pulmonary: lungs clear to auscultation B Abdominal: BS active in all 4 quadrants, no guarding, tenderness, rebounding MSK: strength 5/5 upper and lower extremities : no CVA tenderness no bladder distension Extremities: no edema in lower extremities, PT and DP pulses palpable +2 Psych: mood depressed SKin: no open wounds found Neuro Cranial nerves: Yes CN's II-XII intact bilaterally
--- NOTE | 2025-01-26 23:46 | PC.NURSE ---
Addendum entered by Esperanza Malhotra RN 01/26/25 23:52: Apparently the Speech Therapy consult as well as a nutrition consult was ordered by Nancy Jaeger. Original Note: Patient was seen by Nancy Jaeger, INTERMODAL OWNER OPERATOR TRUCK DRIVER, Hospitalist Service, regarding his c/o throat issues. He had cut his throat a few months ago and he still feels some difficulty swallowing. Nancy Almanza recommends that psych provider put in for a Speech Therapy consult first and then a possible GI consult.
--- NOTE | 2025-01-27 | ECG_ITS ---
Test Reason : RAPID RESPONSE Blood Pressure : */* mmHG Vent. Rate : 67 BPM Atrial Rate : 67 BPM P-R Int : 126 ms QRS Dur : 94 ms QT Int : 396 ms P-R-T Axes : 31 33 32 degrees QTcB Int : 418 ms Normal sinus rhythm Minimal voltage criteria for LVH, may be normal variant ( Sokolow-Clifton ) Borderline ECG When compared with ECG of 27-Jan-2025 09:59, ST no longer depressed in Inferior leads Nonspecific T wave abnormality, improved in Inferior leads Nonspecific T wave abnormality no longer evident in Lateral leads Referred By: Earle Verduzco Electronically Signed By: COCO MUNOZ MD
[2025-01-27 06:00] VITALS: BMI 24.0
--- NOTE | 2025-01-27 06:42 | PC.NURSE ---
Patient was too tired to complete admission paperwork.
[2025-01-27 08:00] VITALS: BP 88/58; PULSE 67; RESP 16; TEMP 36.3; O2SAT 96
--- NOTE | 2025-01-27 08:00 | ECG_ITS ---
Test Reason : check qt Blood Pressure : */* mmHG Vent. Rate : 77 BPM Atrial Rate : 77 BPM P-R Int : 126 ms QRS Dur : 92 ms QT Int : 366 ms P-R-T Axes : 50 48 -4 degrees QTcB Int : 414 ms Normal sinus rhythm Minimal voltage criteria for LVH, may be normal variant ( Sokolow-Clifton ) Nonspecific ST and T wave abnormality Abnormal ECG No previous ECGs available Referred By: Nancy Jaeger Electronically Signed By: COCO MUNOZ MD
[2025-01-27] MEDS: buPROPion HCl XL 150 MG TAB.ER.24H PO (08:45)
[2025-01-27] MEDS: Escitalopram Oxalate 20 MG TABLET PO (08:45)
[2025-01-27] MEDS: Aspirin 81 MG TAB.CHEW PO (08:45)
[2025-01-27] MEDS: OLANZapine 5 MG TABLET PO (08:46)
--- NOTE | 2025-01-27 09:06 | P.HPPS_ITS ---
HPI Date of Service: 01/27/25 Chief Complaint: Major depressive disorder, recurrent episode Sources of Information: patient interviewed, chart reviewed and crisis/core team assessment reviewed HPI Subjective Notes: Orr Warning and Conditional Voluntary Narrative: Seen with electronic biblical studies professor Pt is a 39 yo male, [place]ian/[place] Creol speaking with unclear psych hx (prescribed Zyprexa) who presented to ED in [place] c/o throat/swallowing issue during which time he endorsed SI. The following is collateral: When asked why he is here, he repeatedly touches his throat, I need help with my throat, there is something in there, I feel it. Observed is a horizontal scar across his throat. He states I eat or drink and it goes down but (he gestures upward). When asked about the scar, he became tearful and said I [tried] killed myself...four months ago. Pt acknowledged he still wanted to stab himself , but agrees to stay safe on the unit Denies alcohol or drug use; says he takes medications regularly (though patient's father is skeptical) Patient was restarted on lisinopril and hospitalist discontinued losartan. Today on 01/27, patient was hypotensive in the morning and his lisinopril was held. At about 13:30 typewriter tester met with patient who started to nod off in the interview. He seemed to briefly lose consciousness, said he was dizzy. Patient blood pressure showed 61/40 and rapid response called. Patient was transferred to the medical floor for treatment/observation. Past Psychiatric History: Denies history of psychiatric admissions Medical Evaluation Reviewed: Yes [facility] Medical History (Updated 01/27/25 @ 17:16 by Earle Verduzco MD) Depression Family History: Deferred Social History: Lives with family members, sister Substance History: Denies Trauma History: Deferred Diagnostics Vital Signs (24Hr): Vital Signs - 24 hr 01/26/25 16:29 01/26/25 17:00 01/26/25 18:00 Temperature 98 F Pulse Rate 108 H 92 100 Respiratory Rate 16 Blood Pressure 166/116 H 155/104 H 161/110 H Pulse Oximetry 97 Oxygen Delivery Method 01/26/25 18:36 01/26/25 21:50 01/27/25 08:00 Temperature 98.0 F 97.3 F Pulse Rate 79 67 Respiratory Rate 16 16 Blood Pressure 161/110 H 103/79 88/58 L Pulse Oximetry 98 96 Oxygen Delivery Method Room Air BMI result Body Mass Index 24.0 Meds/Allergies Meds Home Medications ?Medication ?Instructions ?Recorded ?Confirmed ?Type aspirin 81 mg tablet 81 mg PO DAILY 01/26/25 01/26/25 History atorvastatin 80 mg tablet 80 mg PO BEDTIME 01/26/25 01/26/25 History bupropion HCl 150 mg 24 hr tablet, 150 mg PO QAM 01/26/25 01/26/25 History extended release escitalopram oxalate 20 mg tablet 20 mg PO DAILY 01/26/25 01/26/25 History hydroxyzine HCl 25 mg tablet 25 mg PO TID PRN Anxiety 01/26/25 01/26/25 History olanzapine 10 mg tablet 10 mg PO BEDTIME 01/26/25 01/26/25 History olanzapine 5 mg tablet 5 mg PO DAILY 01/26/25 01/26/25 History pantoprazole 40 mg tablet,delayed 40 mg PO DAILY 01/26/25 01/26/25 History release Allergies Allergies Allergy/AdvReac Type Severity Reaction Status Date / Time No Known Allergies Allergy Verified 01/26/25 16:28 Mental Status Exam Mental Status Exam Narrative: Pt is alert and oriented; behavior is cooperative, calm; patient is not in distress; dressed in hospital attire, unkempt, glasses; affect congruent somewhat blunted; eye contact somewhat avoidant; Speech sparse; thought process is goal directed; Thought content not disclose; positive for SI; no HI or AVH expressed; Patients insight and judgment impaired Assessment & Plan Assessment & Plan (1) Depression: Status: Acute Code(s): F32.A - Depression, unspecified (2) Dysphagia: Status: Acute Qualifiers: Dysphagia type: oropharyngeal phase Qualified Code(s): R13.12 - Dysphagia, oropharyngeal phase Code(s): R13.10 - Dysphagia, unspecified Plan HPI: Pt is a 39 yo male, [place] Cre[place] speaking with unclear psych hx (prescribed Zyprexa) who presented to ED in [place] c/o throat/swallowing issue during which time he endorsed SI. The following is collateral: When asked why he is here, he repeatedly touches his throat, I need help with my throat, there is something in there, I feel it. Observed is a horizontal scar across his throat. He states I eat or drink and it goes down but (he gestures upward). When asked about the scar, he became tearful and said I [tried] killed myself...four months ago. Pt acknowledged he still wanted to stab himself , but agrees to stay safe on the unit Denies alcohol or drug use; says he takes medications regularly (though patient's father is skeptical) Patient was restarted on lisinopril and hospitalist discontinued losartan. Today on 01/27, patient was hypotensive in the morning and his lisinopril was held. At about 13:30 typewriter tester met with patient who started to nod off in the interview. He seemed to briefly lose consciousness, said he was dizzy. Patient blood pressure showed 61/40 and rapid response called. Patient was transferred to the medical floor for treatment/observation. Collateral: Patient's father reported that patient has never had any SI prior the event where he cut his neck. Patient was working and productive. Father's skeptical that he is consistent with medications Plan: transferred to the medical floor for treatment/observation. Will returned to psychiatric floor once stabilized Patient educated on: diagnosis and medical condition Informed Consent: understands, does not understand and further education needed Reason for continued inpatient stay Substantial Risk for: inability to function Statement Statement: I have reviewed the history and physical and performed a pertinent examination on my patient. No changes have occurred unless specified. If the History and Physical was not performed prior to admission, the Hospitalist's service will be consulted for completing the admission physical. Time Spent With Patient Time: Total time managing care of this patient today ____ minutes.
[2025-01-27 09:17] LABS: Estimated Average Glucose 128 mg/dL; Hemoglobin A1C 172.6139 umol/L; Hemoglobin A1c % 6.1 % (<6.0); Total Hemoglobin (HGBA1C) 3965.1869 umol/L
[2025-01-27 09:20] LABS: Cholesterol 254 mg/dL (<200); HDL Cholesterol 39 mg/dL (>40); LDL Cholesterol Calculated 178 mg/dL (<100); Magnesium 2.1 mg/dL (1.6-2.6); Triglycerides 185 mg/dL (<150)
[2025-01-27 09:37] LABS: Free T4 (Free Thyroxine) 0.94 ng/dL (0.71-1.85); Thyroid Stimulating Hormone 0.84 uIU/mL (0.32-4.0)
[2025-01-27 09:49] LABS: Folate 12.6 ng/mL (> or = 4.0); Vitamin B12 431 pg/mL (200-900)
[2025-01-27 11:14] VITALS: BP 82/58; PULSE 78; RESP 16
--- NOTE | 2025-01-27 11:49 | PC.NURSE ---
Decreased blood pressure this morning before breakfast 88/58. At that time pt c/o mild dizziness. Pt provided with pitcher of water and encouraged to drink. After breakfast pt reported dizziness resolved, however blood pressure remained decreased 82/58. Dr. Verduzco made aware. No new orders at this time.
[2025-01-27 13:58] VITALS: BP 81/50; PULSE 66
[2025-01-27 14:01] LABS: Glucose, Whole Blood 121 mg/dL (60-115)
--- NOTE | 2025-01-27 14:05 | PM.PSYDC ---
DS: Providers Provider Date of Service: 01/27/25 Date of admission: 01/26/25 16:07 Date of discharge: 01/27/25 Primary care physician: Unknown Physician Attending physician on admission: Earle Verduzco Consults: 01/26/25 16:28 Consult to Hospitalist Routine Comment: Consulting Provider: [facility] Hospitalists Reason For Exam: Transfer pt Attending physician on discharge: Earle Verduzco DS: Diagnosis Discharge Diagnosis (1) HTN (hypertension): Status: Acute (2) Dysphagia: Status: Acute (3) GERD (gastroesophageal reflux disease): Status: Acute (4) Unexplained weight loss: Status: Acute (5) Tobacco dependence: Status: Acute DS: Medications Discharge Medications Home Medications: Home Medications ?Medication ?Instructions ?Recorded ?Confirmed aspirin 81 mg tablet 81 mg PO DAILY 01/26/25 01/26/25 atorvastatin 80 mg tablet 80 mg PO BEDTIME 01/26/25 01/26/25 bupropion HCl 150 mg 24 hr tablet, 150 mg PO QAM 01/26/25 01/26/25 extended release escitalopram oxalate 20 mg tablet 20 mg PO DAILY 01/26/25 01/26/25 hydroxyzine HCl 25 mg tablet 25 mg PO TID PRN Anxiety 01/26/25 01/26/25 olanzapine 10 mg tablet 10 mg PO BEDTIME 01/26/25 01/26/25 olanzapine 5 mg tablet 5 mg PO DAILY 01/26/25 01/26/25 pantoprazole 40 mg tablet,delayed 40 mg PO DAILY 01/26/25 01/26/25 release Mental Status Exam Mental Status Exam Narrative: Pt is alert and oriented; behavior is cooperative, calm; patient is not in distress; dressed in hospital attire, unkempt, glasses; affect congruent somewhat blunted; eye contact somewhat avoidant; Speech sparse; thought process is goal directed; Thought content not disclose; positive for SI; no HI or AVH expressed; Patients insight and judgment impaired Data Data Completed and Pending Completed studies during hospitalization [Text1]: 01/27/25 01/27/25 08:44 13:55 POC Glucose 121 H Estimat Average Glucose 128 Hemoglobin A1c % 6.1 H Magnesium 2.1 Triglycerides 185 H Cholesterol 254 H LDL Cholesterol, Calc 178 H HDL Cholesterol 39 L Vitamin B12 431 Folate 12.6 TSH 0.84 Free T4 0.94 DS: Summary Hospital Course Hospital Course: HPI: Pt is a 39 yo male, Yoruba/[place] Creol speaking with unclear psych hx (prescribed Zyprexa) who presented to ED in [place] c/o throat/swallowing issue during which time he endorsed SI. The following is collateral: When asked why he is here, he repeatedly touches his throat, I need help with my throat, there is something in there, I feel it. Observed is a horizontal scar across his throat. He states I eat or drink and it goes down but (he gestures upward). When asked about the scar, he became tearful and said I [tried] killed myself...four months ago. Pt acknowledged he still wanted to stab himself , but agrees to stay safe on the unit Denies alcohol or drug use; says he takes medications regularly (though patient's father is skeptical) Patient was restarted on lisinopril and hospitalist discontinued losartan. Today on 01/27, patient was hypotensive in the morning and his lisinopril was held. At about 13:30 assembly instructions writer met with patient who started to nod off in the interview. He seemed to briefly lose consciousness, said he was dizzy. Patient blood pressure showed 61/40 and rapid response called. Patient was transferred to the medical floor for treatment/observation. Collateral: Patient's father reported that patient has never had any SI prior the event where he cut his neck. Patient was working and productive. Father's skeptical that he is consistent with medications Diagnosis: For now will diagnosed with depression since patient has SI; however he is also on Zyprexa. Will assess further once returns from medical floor Plan: transferred to the medical floor for treatment/observation. Will returned to psychiatric floor once stabilized Time spent discussing smoking cessation with patient: 3 to 10 minutes (nonsmoker) Status at Discharge Functional status at discharge: bed bound Overall status at discharge: patient is not back to baseline Time Spent with Patient Time attestation: Total time managing care of this patient today __45__ minutes. Time spent: Greater than 30 minutes Specific discharge activities: Met with patient; charting; vitals; rapid response; discharge; discussion with hospitalist team Discharge Plan Discharge Anticipated Discharge Date/Time: 01/27/25 14:04 Patient Disposition: Xfer Other Discharge Diagnosis: depression Referrals: Physician,Unknown J [Primary Care Provider] - 1 Week Discharge Medications: Continued atorvastatin 80 mg Tablet 80 mg PO BEDTIME olanzapine 5 mg Tablet 5 mg PO DAILY olanzapine 10 mg Tablet 10 mg PO BEDTIME pantoprazole 40 mg Tablet,Delayed Release (Dr/Ec) 40 mg PO DAILY hydroxyzine HCl 25 mg Tablet 25 mg PO TID PRN (Reason: Anxiety) aspirin 81 mg Tablet 81 mg PO DAILY escitalopram oxalate 20 mg Tablet 20 mg PO DAILY bupropion HCl 150 mg Tablet Extended Release 24 Hr 150 mg PO QAM Discontinued lisinopril 40 mg Tablet 40 mg PO DAILY losartan 100 mg Tablet 100 mg PO DAILY Discharge Orders: Discharge Order (Routine); Ordered 01/27/25 Ordered By: Earle Verduzco Diet: Diabetic diet Activity on Discharge: As tolerated Stand Alone Forms: Patient Portal Discharge page Print Language: Stephanie Agudelo Care Plan Goals: transferred to medical floor Health Concerns: transferred to medical floor Plan of Treatment: transferred to medical floor Assessment: transferred to medical floor Discharge Date/Time: 01/27/25 14:21
[2025-01-27 14:07] VITALS: BP 93/60; PULSE 65
== END 2025-01-27 14:21 | disposition short-term general hospital (02) | DRG 754 ==
PROVIDERS: Clinical Nurse Specialist Psychiatric/Mental Health, Adult; Admitting Provider Psychiatry & Neurology Psychiatry; Visit Provider Psychiatry & Neurology Psychiatry
DX: F32.A Depression, unspecified (principal); I95.9 Hypotension, unspecified; I10 Essential (primary) hypertension; R13.10 Dysphagia, unspecified; R63.4 Abnormal weight loss; Z68.24 Body mass index [BMI] 24.0-24.9, adult; Z91.51 Personal history of suicidal behavior; Z79.82 Long term (current) use of aspirin; Z79.899 Other long term (current) drug therapy
CPT/HCPCS: 36415; 80061; 82607; 82746; 82947; 83036; 83735; 84439; 84443; 93005

== ENCOUNTER 2025-01-26 16:07 | Outpatient (BNV) | payer SELFPAY | END 2025-01-27 08:00 | PROVIDERS: Admitting Provider Psychiatry & Neurology Psychiatry; Visit Provider Internal Medicine Cardiovascular Disease | DX: R94.31 Abnormal electrocardiogram [ECG] [EKG] (principal); Z13.6 Encounter for screening for cardiovascular disorders | CPT/HCPCS: 93010 ==

== ENCOUNTER → 2025-01-26 16:07 | Outpatient (BNV) | payer SELFPAY | PROVIDERS: Admitting Provider Psychiatry & Neurology Psychiatry; Visit Provider Nurse Practitioner Family | DX: I10 Essential (primary) hypertension (principal); R13.12 Dysphagia, oropharyngeal phase; K21.9 Gastro-esophageal reflux disease without esophagitis; R63.4 Abnormal weight loss; F17.200 Nicotine dependence, unspecified, uncomplicated | CPT/HCPCS: 99222 ==

== ENCOUNTER → 2025-01-26 16:07 | Outpatient (BNV) | payer SELFPAY | PROVIDERS: Admitting Provider Psychiatry & Neurology Psychiatry; Visit Provider Psychiatry & Neurology Psychiatry | DX: F32.2 Major depressive disorder, single episode, severe without psychotic features (principal); F17.200 Nicotine dependence, unspecified, uncomplicated; K21.9 Gastro-esophageal reflux disease without esophagitis; R63.4 Abnormal weight loss | CPT/HCPCS: 90792; 99499 ==

== ENCOUNTER 2025-01-27 14:56 | Observation (INO) | payer MEDICAID, OTHER, SELFPAY ==
--- NOTE | 2025-01-27 14:52 | P.HPHOSP_ITS ---
History of Present Illness Date of Service: 01/27/25 Attending physician on admission: Moe Palmer Chief Complaint: Presyncope and hypotension Pt is a 39-year-old [place] creole-speaking male with a PMH significant for HTN, HLD, GERD, , chronic dysphagia tobacco use disorder, and MDD with previous SI attempt who was admitted to [facility] for increasing depression with SI with plan to stab himself, jump off a bridge/building, or ingest rat poison. Pt presented to [facility] ED with initial complaints of difficulty swallowing that has been ongoing for months after suicide attempt of cutting his throat. Pt was supposed to follow up with ENT that day but was unable to make appointment due to transportation difficulties. Pt also apparently had been noncompliant with home medications including antihypertensives and psychiatric medications as he was unable to swallow pills due to dysphagia. Rapid response was called as pt had a presyncopal episode while on the unit. Pt was ambulating with provider when he became unsteady on his feet, complain of lightheadedness and dizziness, and was brought to a room and sat down in a chair. Unclear if pt lost consciousness or not. No tonic- clonic or seizure-like activity noted. Patient's vitals were significant for BP of 81/50. POC 121. Pt complained of feeling lightheaded and dizzy, and feeling ?like my throat is closing?. Pt also noted that he had unintentional weight loss of 15 kilos since October. Denies any other acute medical complaints. No chest pain/pressure, palpitations. Denies fever, chills, nausea, vomiting, diarrhea. No abdominal pain. No SOB or difficulty breathing. IV line was established and pt was administered IVF bolus with rapid improvement of BP to 93/60. Of note, nursing notified hospitalist services last night that pt was hypertensive as high as 166/116. Pt reports not taking his antihypertensives for the past few days. Medication review indicate pt was on lisinopril 40 mg daily as well as losartan. Losartan was stopped and pt received lisinopril 40 mg p.o. last night at approximately 18:00. Pt reports has not been eating or drinking normally for quite some time due to dysphagia and anhedonia. Review of records from earlier in the day indicates pt was hypotensive at 88/58 at 08:00 and 82/58 at 11:14. Labs from yesterday reviewed, significant for mildly elevated A1c of 6.1 and elevated lipid panel. Pt has so far refused any additional labs. Pt was brought to the medical floor under observation due to presyncope and hypotension for further management and evaluation. Review of Systems 2 Review of Systems: Negative except for that which is stated in the HPI. [facility] Medical History (Updated 01/27/25 @ 20:04 by MYRNA Bishop) Depression Social History Household Members: Family Housing: Apartment Do you presently have visiting nurse or other home services: No Comment: 1:1 sitter. camera in room Patient Tobacco Use Status: Never used Tobacco e-Cigarette/Vaping Use: Never Used Meds Allergies Allergy/AdvReac Type Severity Reaction Status Date / Time No Known Allergies Allergy Verified 01/26/25 16:28 Active Medications: Current Medications Acetaminophen (Acetaminophen 325 Mg Tablet) 650 mg PO Q6H PRN PRN Reason: Pain, Mild 1-3,fever,headache Calcium Carbonate (Calcium Carbonate 750 Mg Tab.Chew) 750 mg PO Q4H PRN PRN Reason: Heartburn Enoxaparin Sodium (Enoxaparin Sodium 40 Mg/0.4 Ml Syringe) 40 mg SUBCUT Q24H [facility] Lactated Ringer's (Lr) 1,000 mls @ 100 mls/hr IVCONT .Q10H [facility] Stop: 01/28/25 00:59 Magnesium Hydroxide (Milk Of Magnesia 30 Ml Oral.Susp) 30 ml PO DAILY PRN PRN Reason: Constipation Melatonin (Melatonin 3 Mg Tablet) 6 mg PO BEDTIME PRN PRN Reason: Insomnia Ondansetron HCl (Ondansetron Hcl 4 Mg/2 Ml Vial) 4 mg IVPUSH Q8H PRN PRN Reason: Nausea and Vomiting Sodium Chloride (0.9 % Sodium Chloride Flush 3 Ml Syringe) 3 ml IVFLUSH QSHIFT [facility] Home Medications ?Medication ?Instructions ?Recorded ?Confirmed ?Last Taken ?Type atorvastatin 80 mg tablet 80 mg PO BEDTIME 01/26/25 01/28/25 Unknown History bupropion HCl 150 mg 24 hr tablet, 150 mg PO DAILY 01/26/25 01/28/25 Unknown History extended release escitalopram oxalate 20 mg tablet 20 mg PO DAILY 01/26/25 01/28/25 Unknown History hydroxyzine HCl 25 mg tablet 25 mg PO TID PRN Anxiety 01/26/25 01/28/25 Unknown History olanzapine 10 mg tablet 10 mg PO BEDTIME 01/26/25 01/28/25 Unknown History olanzapine 5 mg tablet 5 mg PO DAILY 01/26/25 01/28/25 Unknown History pantoprazole 40 mg tablet,delayed 40 mg PO DAILY@0630 01/26/25 01/28/25 Unknown History release aspirin 81 mg tablet,delayed 81 mg PO DAILY 01/28/25 01/28/25 Unknown History release Physical Exam 2 Vital Signs and Narrative: General: Alert and oriented to person and time, not fully to place though knows he is in a hospital. In no acute distress Resp: CTA bilaterally CVS: S1, S2, RRR GI: +BS, NT, no distention Skin: Warm, dry Neuro: Cranial nerves II-XII grossly intact bilaterally. Motor grossly intact bilaterally Extremities: No edema Psych: Flat affect Results Labs 01/28/25 05:50 01/28/25 05:50 Assessment and Plan (1) Pre-syncope: Status: Acute (2) Hypotension: Status: Acute Plan Pt is a 39-year-old [facility] creole-speaking male with a PMH significant for HTN, HLD, GERD, , chronic dysphagia tobacco use disorder, and MDD with previous SI attempt who was admitted to [facility] for increasing depression with SI with plan to stab himself, jump off a bridge/building, or ingest rat poison. While on the unit pt had presyncopal episode and noted to be hypotensive as low as 81/50. Pt brought to the medical floor for treatment and further evaluation of presyncope in the setting of hypotension. Presyncope and hypotension Pt with lightheadedness, dizziness, unsteadiness on feet, hypotensive as low as 81/50 Pt previously hypertensive prior evening at 166/116 Restarted on lisinopril 40 mg daily after not taking for the past few days Likely multifactorial: In the setting of hypovolemia from reduced p.o. intake and restarting antihypertensives Pt resuscitated with 1 L IVF with BP improvement, currently 108/[address] on maintenance fluids Hold antihypertensives Monitor on telemetry Dysphagia Pt complaining of difficulty swallowing and feeling like items were stuck in his throat Has been chronic, likely secondary to suicide attempt of cutting his throat years ago Pt seen and evaluated by speech and swallow who recommended chopped/advanced (NND3) diet with thin liquids, larger pills crushed in puree Should follow up outpatient with GI for possible EGD for further assessment HLD Continue statin GERD Continue PPI Mood disorder Continue home mood stabilizers Psychiatry consult Full Code Attending:?Dr. Palmer DVT Prophylaxis: Lovenox Pt brought to the hospital floor under observation for treatment and further evaluation of presyncope in the setting of hypotension likely secondary to hypovolemia from reduced p.o. intake and antihypertensive use. Pt will require IV fluid resuscitation and close monitoring of BP. Quality Stroke Does the patient have a stroke diagnosis?: No VTE Prior VTE?: No VTE Risk Level:: Medical - moderate - high VTE Device Contraindication: Treatment Not Indicated VTE Drug Contraindication: N/A - Med Ordered
--- OUTSIDE RECORDS SUMMARY | 2025-01-27 15:09 | XMS_ITS | Encounter Summary ---
Author Organization [employer] Address [address] [place] [address] 7 h Floor [place] [id number] Care Team Providers Care Police Superintendent Name Role Phone Miguel Kwok MD Primary Care Provider [phone] Encounter Details Date Type Department Care Team (Late st Contact Info) Description 09/12/2022 Telephone [facility] [address] [place] [address] Alisa Echols Social History Tobacco Use Types [...] EDT Office Visit [facility] MAIN ADULT [address] [place] [address] Miguel Kwok MD [address] [place] [address] documented as of this encounter Visit Diagnoses Not on filedocumented in this encounter Care Teams Police Superintendent Relationship Specialty Start Date End Date Miguel Kwok MD [address] [place] [address] PCP - General 10/12/21 documented as of this encounter
--- OUTSIDE RECORDS SUMMARY | 2025-01-27 15:09 | XMS_ITS | Encounter Summary ---
Author Organization [employer] Address [address] [facility] 7 [place] [address] Care Team Providers Care Cupola Charger Insulation Name Role Phone Miguel Kwok MD Primary Care Provider [phone] Reason for Visit * Reason Onset Date Comments Advice Only 08/29/2024 Encounter Details Date Type Department Care Team ([facility] Contact Info) Description 08/29/2024 Telephone [facility] [address] [place] [address] Miguel Kwok MD [address] [place] [address] Advice Only Social History Tobacco Use Types [...] He's Been Calling for 2. Weeks Now. Kyrgyz Creole Language Assessment Notes 1st attempt no answer. msrn 2nd attempt no answer. msrn documented in this encounter Plan of Treatment Upcoming Encounters Date Type Department Care Team (Late st Contact Info) Description 02/09/2025 9:40 AM EDT Office Visit [facility] MAIN ADULT [address] [place] [id number] Miguel Kwok MD [address] [place] [id number] documented as of this encounter Visit Diagnoses Not on filedocumented in this encounter Care Teams Cupola Charger Insulation Relationship Specialty Start Date End Date Miguel Kwok MD [address] [place] [phone] PCP - General 10/12/21 documented as of this encounter
--- OUTSIDE RECORDS SUMMARY | 2025-01-27 15:09 | XMS_ITS | Referral Summary ---
Author Organization [facility] r Address [address] [place] [address] Phone Care Team Providers Care Market Analysis Director Name Role Phone Unavailable Primary Care Provider Unavailabl e Encounters Date Type Department Care Team Description 01/13/2025 Telephone Department of Otolaryngology [address] [place] [address] Pcp-Confirmed, No Appointment from Last [...] week for recheck with Dr. Palomares in [place] because he is unable to travel to [facility] next week, sooner if increased pain, redness, discharge, or as needed. As long as cornea epi defect healed then, can see me in [place] Jun 05 for POM 1 check with [...] Patient would like to be seen in [place]. Assessment & Plan (12/12/2019 3:28 PM EST): [...] (12/12/2019): Added automatically from request for surgery [id number] Social History Tobacco Use Types Packs/Day Years [...] on file Medical Devices Implanted Type Area Transformer Assembler Device Identifier Shelf Expiration Date Model / Serial / Lot Kit Tissue Closure Duo * Sealant Fibri Glue Tisseel 4ml Frozen Kit Fibrin Sealant - [id number] - [id number] Implanted:Qty: 1 on 05/10/2020 by Tasneem Harp MD, PhD at [facility] Left: Eye Mancera/Internatio nal 06/11/2021 [id number] / [id number] 1 / [id number]
--- OUTSIDE RECORDS SUMMARY | 2025-01-27 15:09 | XMS_ITS | Clinical Summary ---
Author Organization [facility] r Address [address] [place] [address] Phone Care Team Providers Care Elementary Reading Tutor Name Role Phone Unavailable Primary Care Provider [...] eye Sp pterygium excision left eye 05/10/20 (Loyd/Cilff) Assessment & Plan (05/18/2020 4:43 PM EDT): [...] week for recheck with Dr. Palomares in [place] because he is unable to travel to [facility] next week, sooner if increased pain, redness, discharge, or as needed. As long as cornea epi defect healed then, can see me in [place] Jun 05 for POM 1 check with [...] Patient would like to be seen in [place]. Assessment & Plan (12/12/2019 3:28 PM EST): [...] (12/12/2019): Added automatically from request for surgery [id number] Encounters Date Type Department Care Team Description 01/13/2025 Telephone Department of Otolaryngology [address] [facility] [address] [place] [address] Pcp-Confirmed, No Appointment from Last [...] this topic Medical Devices Implanted Type Area Film Or Videotape Editor Device Identifier Shelf Expiration Date Model / Serial / Lot Kit Tissue Closure Duo * Sealant Fibri Glue Tisseel 4ml Frozen Kit Fibrin Sealant - [id number] - [id number] Implanted:Qty: 1 on 05/10/2020 by Tasneem Harp MD, PhD at [facility] Left: Eye Mancera/Internatio nal 06/11/2021 [id number] / [id number] 1 / [id number]
--- OUTSIDE RECORDS SUMMARY | 2025-01-27 15:09 | XMS_ITS | Encounter Summary ---
Author Organization [employer] Address [address] [facility] 7t [place] [address] Care Team Providers Care Stock Driver Name Role Phone Miguel Kwok MD Primary Care Provider [phone] Reason for Visit * Reason Comments Referral ENT trouble swallowing Encounter Details Date Type Department Care Team (Late st Contact Info) Description 01/23/2025 8:40 AM EDT Office Visit [facility] MA[facility] AD[facility] [address] [place] [address] Miguel Kwok MD [address] [place] [address] Bloating (Primary Dx) Social History Tobacco Use [...] with others, in a hotel, in a jail, living outside on the street, on a [...] Kwok MD - 01/23/2025 8:40 AM EDT [address] [id number] [email or web address] History of Present Illness: Patient is a [...] Violence: Not At Risk (09/30/2024) Received from [facility] Intimate Partner Violence Are you denied [...] Description 02/09/2025 9:40 AM EDT Office Visit [facility] MAIN ADULT [address] [place] [address] Miguel Kwok MD [address] [place] [phone] documented as of this encounter Visit Diagnoses Diagnosis Bloating- Primary Flatulence, eructation, and gas pain documented in this encounter Additional Health Concerns Assessment Noted Time PHQ-9 Depression Total Score: 14 025 12:48 PM EST documented as of this encounter Care Teams Stock Driver Relationship Specialty Start Date End Date Miguel Kwok MD [address] [place] [address] PCP - General 10/12/21 documented as of this encounter
--- OUTSIDE RECORDS SUMMARY | 2025-01-27 15:09 | XMS_ITS | Encounter Summary ---
Author Organization [facility] r Address [address] [place] [address] Phone Care Team Providers Care Healthcare Corporate Account Director Name Role Phone Unavailable Primary Care Provider Unavailabl e Encounter Details Date Type Department Care Team (Late st Contact Info) Description 12/12/2019 Telephone Eye Care [address] [place] [address] Tasneem Harp MD, PhD [address] [place] [id number] Social History Tobacco Use Types Packs/Day Years [...]
--- OUTSIDE RECORDS SUMMARY | 2025-01-27 15:09 | XMS_ITS | Clinical Summary ---
Author Organization [employer] Address [address] [facility] 7t [place] [address] Care Team Providers Care Mobile Ui Developer Name Role Phone Miguel Kwok MD Primary Care Provider [phone] Allergies No known active allergies Medications * This document contains information received from the source organization and may not represent a complete record from that organization. LYCOPENE PO Take 1 tablet by mouth Once per day. 10/19/19 25 Active aspirin 81 MG chewable tabletIndications: Mixed hyperlipidemia Chew 1 tablet (81 mg) Once per day. 90 tablet 1 12/01/19 25 Active Additional Information Patient not taking.Reported on 01/23/2025 atorvastatin (Lipitor) 80 MG tabletIndications: Mixed hyperlipidemia Take 1 tablet (80 mg) by mouth Once per day. 90 tablet 1 12/01/19 25 Active Additional Information Patient not taking.Reported on 01/23/2025 escitalopram (Lexapro) 20 MG tabletIndications: Moderate episode of recurrent major depressive disorder (CMS/HCC) Take 1 tablet (20 mg) by mouth Once per day. 30 tablet 3 12/01/19 25 Active Additional Information Patient not taking.Reported on 01/23/2025 losartan (Cozaar) 100 MG tabletIndications: HTN (hypertension), benign Take 1 tablet (100 mg) by mouth Once per day. 90 tablet 3 5 4:07 PM EST 12/01/19 25 026 Active Additional Information Patient not taking.Reported on 01/23/2025 triamcinolone (Kenalog) 0.5 % creamIndications:I rritant contact dermatitis due to cosmetics Apply topically 2 times daily. 45 g 1 5 4:07 PM EST 12/01/19 25 Active Additional Information Patient not taking.Reported on 01/23/2025 OLANZapine (ZyPREXA) 10 MG tablet Take 1 tablet (10 mg) by mouth at bedtime. 12/17/19 25 Active Additional Information Patient not taking.Reported on 12/28/2024 ramelteon (Rozerem) 8 MG tablet Take 1 tablet (8 mg) by mouth at bedtime. 12/17/19 026 Active Additional Information Patient not taking.Reported on 01/23/2025 hydrOXYzine HCl (Atarax) 25 MG tablet Take 1 tablet (25 mg) by mouth every 8 (eight) hours if needed for itching. Do not drive or operate machinery while being on the med 90 tablet 1 12/17/19 25 Active Additional Information Patient not taking.Reported on 01/23/2025 buPROPion XL (Wellbutrin XL) 150 MG 24 hr tablet Take 1 tablet (150 mg) by mouth Once per day. Do not crush, chew, or split. 12/17/19 25 Active Additional Information Patient not taking.Reported on 01/23/2025 OLANZapine (ZyPREXA) 5 MG tablet Take 1 tablet (5 mg) by mouth Once per day. 12/17/19 25 Active Additional Information Patient not taking.Reported on 01/23/2025 pantoprazole (ProtoNix) 40 MG EC tablet Take 1 tablet (40 mg) by mouth before breakfast. Do not crush, chew, or split. 12/17/19 25 Active Additional Information Patient not taking.Reported on 01/23/2025 pantoprazole (ProtoNix) 40 MG EC tablet Take 1 tablet by mouth daily. 30 tablet 5 9:11 AM EST 12/16/19 25 Active Additional Information Patient not taking.Reported on 01/23/2025 buPROPion XL (Wellbutrin XL) 150 MG 24 hr tablet take 1 tablet by mouth every morning for 30 days 30 tablet 5 9:11 AM EST 12/16/19 25 Active Additional Information Patient not taking.Reported on 01/23/2025 lisinopril 40 MG tablet take 1 tablet by mouth every day for hypertension 30 tablet 2 5 9:11 AM EST 11/29/19 25 Active Additional Information Patient not taking.Reported on 01/23/2025 OLANZapine (ZyPREXA) 10 MG tablet take 1 tablet by mouth once a day at bedtime 30 tablet 5 9:11 AM EST 12/16/19 25 Active Additional Information Patient not taking.Reported on 01/23/2025 hydrOXYzine HCl (Atarax) 25 MG tablet take 1 tablet by mouth every 8 hours as needed for anxiety 90 tablet 5 9:11 AM EST 11/29/19 25 Active Additional Information Patient not taking.Reported on 01/23/2025 OLANZapine (ZyPREXA) 5 MG tablet Take 1 tablet by mouth at bedtime 30 tablet 1 5 9:11 AM EST 11/29/19 25 Active Additional Information Patient not taking.Reported on 01/23/2025 Diclofenac Sodium 1 % gelIndications:Nec k pain Apply 2 g topically 3 times daily. 100 g 1 5 12:28 PM EDT 12/29/19 25 Active Additional Information Patient not taking.Reported on 01/23/2025 Benzocaine-Menthol (Cepacol Extra Strength) 15-2.6 MG lozengeIndications :Sore throat Dissolve 1 lozenge in the mouth every 2 (two) hours. 60 lozenge 1 5 12:28 PM EDT 12/29/19 25 Active Additional Information Patient not taking.Reported on 01/23/2025 aluminum-magnesium hydroxide-simethic one (Maalox) 200-200-20 MG/5ML suspensionIndicati ons:Sore throat Take 30 mL by mouth before breakfast, before lunch, before evening meal, and at bedtime. 355 mL 1 5 12:28 PM EDT 12/29/19 25 Active Additional Information Patient not taking.Reported on 01/23/2025 acetaminophen (Tylenol) 500 MG tabletIndications: Palpitation,Penetr ating traumatic injury of neck,Sore throat Take 1 tablet (500 mg) by mouth every 8 (eight) hours if needed for moderate pain or mild pain. 30 tablet 2 5 12:28 PM EDT 12/29/19 25 Active Additional Information Patient not taking.Reported on 01/23/2025 venlafaxine XR (Effexor XR) 75 MG 24 hr capsule take 3 cap Orally daily 90 capsule 2 01/12/20 Active Additional Information Patient not taking.Reported on 01/23/2025 Active Problems Problem Noted Date Diagnosed Date [...] week for recheck with Dr. Palomares in [place] because he is unable to travel to [facility] next week, sooner if increased pain, redness, discharge, or as needed. As long as cornea epi defect healed then, can see me in [place] Jun 05 for POM 1 check with refraction. 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 Date Type Department Care Team Description 01/23/2025 8:40 AM EDT Office Visit [facility] [place] [address] Miguel Kwok MD Bloating (Primary Dx) 12/28/2024 2:20 PM EDT Office Visit [facility] [place] [address] Miguel Kwok MD Neck pain (Primary Dx); Palpitation; Anxiety; Penetrating traumatic injury of neck; Sore throat 12/28/2024 Telephone [facility] [address] [place] [address] [facility] [place] 12/28/2024 Telephone [facility] [address] [place] [address] [facility] [place] 12/16/2024 9:40 AM EST Office Visit [place] [address] Miguel Kwok MD Chronic superficial gastritis without bleeding (Primary Dx); Mood disorder due to known physiological condition, unspecified; Irritant contact dermatitis due to cosmetics 12/01/2024 3:00 PM EST Office Visit [place] [address] Miguel Kwok MD Irritant contact dermatitis due to cosmetics (Primary Dx); Mixed hyperlipidemia; HTN (hypertension), benign; Moderate episode of recurrent major depressive disorder ([facility]) 11/21/2024 Patient Outreach [facility] [place] [address] Jose Torrez 11/14/2024 10:00 AM EST Office Visit [place] [address] Miguel Kwok MD Mixed hyperlipidemia; HTN (hypertension), [...] with others, in a hotel, in a group home, living outside on the street, on [...] Upcoming Encounters Date Type Department Care Team ([facility] st Contact Info) Description 02/09/2025 9:40 AM EDT Office Visit [facility] MAIN ADULT [address] [place] [address] Miguel Kwok MD [address] [place] [address] Health Maintenance Due Date Last Done Comments [...] Lipid Panel, Standard (08/04/2024 7:22 PM EDT) Cholesterol, Total 117 <200 mg/dL [facility] HDL Cholesterol 41 > OR = 40 mg/dL [facility] Triglycerides 81 <150 mg/dL [facility] LDL Cholesterol 60 mg/dL Ques t [facility] Comment: Reference range: <100 Desirable range <100 mg/dL for primary prevention; ?? <70 mg/dL for patients with CHD or diabetic patients with > or = 2 CHD risk factors. LDL-C is now calculated using the Nathalie calculation, which is a validated novel method providing better accuracy than the Friedewald equation in the estimation of LDL-C. Benjamín SS et al. VLADISLAV. 2013;310(19): 9380-8516 (http://education.[employer]/faq/CPE383) Chol/HDLC Ratio 2.9 <5.0 (calc) [facility] Non-HDL Cholesterol 76 <130 mg/dL [facility] Comment: For patients with diabetes plus 1 major ASCVD risk factor, treating to a non-HDL-C goal of <100 mg/dL (LDL-C of <70 mg/dL) is considered a therapeutic option. Blood Venous blood specimen / Unknown 08/04/2024 7:22 PM EDT 08/05/2024 4:07 AM EDT Narrative [facility] - 08/09/2024 3:46 PM EDT FASTING:UNKNOWN FASTING: UNKNOWN us Melvin Ortiz MD LAB BLOOD ORDERABLES Final Re sult [facility] [address], [place] [address] [facility] [address] [place] [address] * (ABNORMAL) POCT A1C (08/04/2024 6:34 PM EDT) Hemoglobin A1C 6.1(A) 4.0 - 6.0 % Blood 08/04/2024 6:34 PM EDT Melvin Ortiz MD POINT OF CARE TEST ENTER/EDIT ORDERABLES Final Result from Last 3 Months or Most Recently Relevant to Health Maintenance [place] [address] LIMITED HSN FULL Care Teams Mobile Ui Developer Relationship Specialty Start Date End Date Miguel Kwok MD [address] [place] [address] PCP - General 10/12/21
--- OUTSIDE RECORDS SUMMARY | 2025-01-27 15:09 | XMS_ITS | Encounter Summary ---
Author Organization [employer] Address [address] [facility] 7t [place] [address] Care Team Providers Care Electric Organ Assembler And Checker Name Role Phone Miguel Kwok MD Primary Care Provider [phone] Reason for Visit * Reason Comments Med Change Request Encounter Details Date Type Department Care Team ([facility] st Contact Info) Description 08/04/2024 Refill [facility] MAIN ADULT [address] [place] [address] Melvin Ortiz MD [address] [place] [address] Social History Tobacco Use Types Packs/Day Years [...] 02/09/2025 9:40 AM EDT Office Visit [facility] MAIN ADULT [address] [place] [address] Miguel Kwok MD [address] [place] [address] documented as of this encounter Visit Diagnoses Not on filedocumented in this encounter Care Teams Electric Organ Assembler And Checker Relationship Specialty Start Date End Date Miguel Kwok MD [address] [place] [address] PCP - General 10/12/21 documented as of this encounter
--- OUTSIDE RECORDS SUMMARY | 2025-01-27 15:09 | XMS_ITS | Encounter Summary ---
Author Organization [facility] r Address [address] [address] Phone Care Team Providers Care Field Artillery Targeting Technician Name Role Phone Unavailable Primary Care Provider Unavailabl e Reason for Visit * Reason Onset Date Comments Appointment 01/13/2025 Encounter Details Date Type Department Care Team (Late st Contact Info) Description 01/13/2025 Telephone Department of Otolaryngology [address] [address] Pcp-Confirmed, No Appointment Social History [...] Patient presents with Appointment Sugar, calling from [facility], in regard to scheduling new pt appt, Advised 7 business days TAT. Cb: [phone]; if unable to reach please call pt at [phone]. documented in this encounter Plan of Treatment Not on file documented as of this encounter Visit Diagnoses Not on filedocumented in this encounter
--- OUTSIDE RECORDS SUMMARY | 2025-01-27 16:08 | XMS_ITS | Encounter Summary ---
Author Organization [facility] r Address [address] [facility] [place] [address] Phone Care Team Providers Care Benefit Specialist Name Role Phone Unavailable Primary Care Provider Unavailabl e Encounter Details Date Type Department Care Team (Late st Contact Info) Description 12/12/2019 Telephone Eye [facility] [address] [place] [address] Tasneem Harp MD, PhD [address] [place] [address] Social History Tobacco Use Types Packs/Day Years [...]
--- OUTSIDE RECORDS SUMMARY | 2025-01-27 16:08 | XMS_ITS | Encounter Summary ---
Author Organization [employer] Address [address] [facility] 7 [place] [address] Care Team Providers Care Hands Hanger Name Role Phone Miguel Kwok MD Primary Care Provider [phone] Reason for Visit * Reason Onset Date Comments Advice Only 08/29/2024 Encounter Details Date Type Department Care Team ([facility] Contact Info) Description 08/29/2024 Telephone [facility] [address] [place] [address] Miguel Kwok MD [address] [place] [address] Advice Only Social History Tobacco Use Types [...] He's Been Calling for 2. Weeks Now. Spanish Creole Language Assessment Notes 1st attempt no answer. msrn 2nd attempt no answer. msrn documented in this encounter Plan of Treatment Upcoming Encounters Date Type Department Care Team (Late st Contact Info) Description 02/09/2025 9:40 AM EDT Office Visit [facility] MAIN ADULT [address] [place] [address] Miguel Kwok MD [address] [place] [address] documented as of this encounter Visit Diagnoses Not on filedocumented in this encounter Care Teams Hands Hanger Relationship Specialty Start Date End Date Miguel Kwok MD [address] [place] [address] PCP - General 10/12/21 documented as of this encounter
--- OUTSIDE RECORDS SUMMARY | 2025-01-27 16:08 | XMS_ITS | Encounter Summary ---
Author Organization [employer] Address [address] [facility] 7t [place] [address] Care Team Providers Care Specialty Food Products Supervisor Name Role Phone Miguel Kwok MD Primary Care Provider [phone] Reason for Visit * Reason Comments Med Change Request Encounter Details Date Type Department Care Team ([facility] st Contact Info) Description 08/04/2024 Refill [facility] MAIN ADULT [address] [place] [address] Melvin Ortiz MD [address] [place] [address] Social History Tobacco Use Types Packs/Day Years [...] Description 02/09/2025 9:40 AM EDT Office Visit [facility] MAIN ADULT [address] [place] [address] Miguel Kwok MD [address] [place] [address] documented as of this encounter Visit Diagnoses Not on filedocumented in this encounter Care Teams Specialty Food Products Supervisor Relationship Specialty Start Date End Date Miguel Kwok MD [address] [place] [address] PCP - General 10/12/21 documented as of this encounter
--- OUTSIDE RECORDS SUMMARY | 2025-01-27 16:08 | XMS_ITS | Encounter Summary ---
Author Organization [facility] r Address [address] [facility] [place] [address] Phone Care Team Providers Care Chief Information Officer Name Role Phone Unavailable Primary Care Provider Unavailabl e Reason for Visit * Reason Onset Date Comments Appointment 01/13/2025 Encounter Details Date Type Department Care Team (Late st Contact Info) Description 01/13/2025 Telephone Department of Otolaryngology [address] [address] Pcp-Confirmed, No Appointment Social History [...] Patient presents with Appointment Sugar, calling from [facility], in regard to scheduling new pt appt, Advised 7 business days TAT. Cb: [phone]; if unable to reach please call pt at [phone]. documented in this encounter Plan of Treatment Not on file documented as of this encounter Visit Diagnoses Not on filedocumented in this encounter
--- OUTSIDE RECORDS SUMMARY | 2025-01-27 16:08 | XMS_ITS | Clinical Summary ---
Author Organization [employer] Address [address] [facility] 7t [place] [address] Care Team Providers Care Logistics Supervisor Name Role Phone Miguel Kwok MD Primary Care Provider [phone] Allergies No known active allergies Medications * [...] week for recheck with Dr. Palomares in [place] because he is unable to travel to [facility] next week, sooner if increased pain, redness, discharge, or as needed. As long as cornea epi defect healed then, can see me in [place] Jun 05 for POM 1 check with refraction. 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 Date Type Department Care Team Description 01/23/2025 8:40 AM EDT Office Visit [facility] MAIN ADULT [facility] [place] [address] Miguel Kwok MD Bloating (Primary Dx) 12/28/2024 2:20 PM EDT Office Visit [facility] MAIN ADULT [facility] [address] Miguel Kwok MD Neck pain (Primary Dx); Palpitation; Anxiety; Penetrating traumatic injury of neck; Sore throat 12/28/2024 Telephone [facility] FINANCIAL ASSIST [address] [place] [address] [facility] [place] 12/28/2024 Telephone [facility] FINANCIAL ASSIST [address] [place] [address] [facility] 12/16/2024 9:40 AM EST Office Visit [facility] [place] [address] Miguel Kwok MD Chronic superficial gastritis without bleeding (Primary Dx); Mood disorder due to known physiological condition, unspecified; Irritant contact dermatitis due to cosmetics 12/01/2024 3:00 PM EST Office Visit [facility] [place] [address] Miguel Kwok MD Irritant contact dermatitis due to cosmetics (Primary Dx); Mixed hyperlipidemia; HTN (hypertension), benign; Moderate episode of recurrent major depressive disorder ([facility]) 11/21/2024 Patient Outreach [facility] [place] [address] Jose Torrez 11/14/2024 10:00 AM EST Office Visit [facility] [place] [address] Miguel Kwok MD Mixed hyperlipidemia; HTN (hypertension), [...] with others, in a hotel, in a long term, living outside on the street, on a [...] Upcoming Encounters Date Type Department Care Team ([facility] st Contact Info) Description 02/09/2025 9:40 AM EDT Office Visit [facility] MAIN ADULT [address] [place] [address] Miguel Kwok MD [address] [place] [address] Health Maintenance Due Date Last Done Comments [...] PM EDT) Cholesterol, Total 117 <200 mg/dL [facility] HDL Cholesterol 41 > OR = 40 mg/dL [facility] Triglycerides 81 <150 mg/dL [facility] LDL Cholesterol 60 mg/dL Ques t [email or web address] [facility] Comment: Reference range: <100 Desirable range <100 mg/dL for primary prevention; ?? <70 mg/dL for patients with CHD or diabetic patients with > or = 2 CHD risk factors. LDL-C is now calculated using the Nathalie calculation, which is a validated novel method providing better accuracy than the Friedewald equation in the estimation of LDL-C. Benjamín SS et al. VLADISLAV. 2013;310(19): 9136-0567 (http://education.[employer]/faq/KQE100) Chol/HDLC Ratio 2.9 <5.0 (calc) [facility] Non-HDL Cholesterol 76 <130 mg/dL [facility] Comment: For patients with diabetes plus 1 major ASCVD risk factor, treating to a non-HDL-C goal of <100 mg/dL (LDL-C of <70 mg/dL) is considered a therapeutic option. Blood Venous blood specimen / Unknown 08/04/2024 7:22 PM EDT 08/05/2024 4:07 AM EDT Narrative [facility] - 08/09/2024 3:46 PM EDT FASTING:UNKNOWN FASTING: UNKNOWN us Melvin Ortiz MD LAB BLOOD ORDERABLES Final Re sult [facility] [address], [place] [address] [facility] [address] [place] [address] * (ABNORMAL) POCT A1C (08/04/2024 6:34 PM EDT) Hemoglobin A1C 6.1(A) 4.0 - 6.0 % Blood 08/04/2024 6:34 PM EDT Melvin Ortiz MD POINT OF CARE TEST ENTER/EDIT ORDERABLES Final Result from Last 3 Months or Most Recently Relevant to Health Maintenance [place] [address] [place] [address] LIMITED HSN FULL Care Teams Logistics Supervisor Relationship Specialty Start Date End Date Miguel Kwok MD [address] [place] [address] PCP - General 10/12/21
--- OUTSIDE RECORDS SUMMARY | 2025-01-27 16:08 | XMS_ITS | Referral Summary ---
Author Organization [facility] r Address [address] [facility] [place] [address] Phone Care Team Providers Care Slot Manager Name Role Phone Unavailable Primary Care Provider Unavailabl e Encounters Date Type Department Care Team Description 01/13/2025 Telephone Department of Otolaryngology [address] [place] [address] Pcp-Confirmed, No Appointment from Last [...] eye Sp pterygium excision left eye 05/10/20 (Olyd/Cliff) Assessment & Plan (05/18/2020 4:43 PM EDT): [...] week for recheck with Dr. Palomares in [place] because he is unable to travel to [facility] next week, sooner if increased pain, redness, discharge, or as needed. As long as cornea epi defect healed then, can see me in [place] Jun 05 for POM 1 check with [...] Patient would like to be seen in [place]. Assessment & Plan (12/12/2019 3:28 PM EST): [...] (12/12/2019): Added automatically from request for surgery [id number] Social History Tobacco Use Types Packs/Day Years [...] on file Medical Devices Implanted Type Area Radiologic Tech Device Identifier Shelf Expiration Date Model / Serial / Lot Kit Tissue Closure Duo * Sealant Fibri Glue Tisseel 4ml Frozen Kit Fibrin Sealant - [id number] - [id number] Implanted:Qty: 1 on 05/10/2020 by Tasneem Harp MD, PhD at [facility] Left: Eye Man[employer]a/Internatio nal 06/11/2021 [id number] / [id number] / [id number]
--- OUTSIDE RECORDS SUMMARY | 2025-01-27 16:08 | XMS_ITS | Encounter Summary ---
Author Organization [employer] Address [address] [facility] 7t [place] [address] Care Team Providers Care Senior Revenue Accountant Name Role Phone Miguel Kwok MD Primary Care Provider [phone] Reason for Visit * Reason Comments Referral ENT trouble swallowing Encounter Details Date Type Department Care Team (Late st Contact Info) Description 01/23/2025 8:40 AM EDT Office Visit [facility] MAIN ADULT [address] [place] [address] Miguel Kwok MD [address] [place] [address] Bloating (Primary Dx) Social History Tobacco Use [...] with others, in a hotel, in a nursing home, living outside on the street, on [...] Kwok MD - 01/23/2025 8:40 AM EDT [address] [id number] [email or web address] History of Present Illness: Patient [...] Violence: Not At Risk (09/30/2024) Received from [facility] Intimate Partner Violence Are you denied [...] Description 02/09/2025 9:40 AM EDT Office Visit [facility] MAIN ADULT [address] [place] [address] Miguel Kwok MD [address] [place] [address] documented as of this encounter Visit Diagnoses Diagnosis Bloating- Primary Flatulence, eructation, and gas pain documented in this encounter Additional Health Concerns Assessment Noted Time PHQ-9 Depression Total Score: 14 025 12:48 PM EST documented as of this encounter Care Teams Senior Revenue Accountant Relationship Specialty Start Date End Date Miguel Kwok MD [address] [place] [address] PCP - General 10/12/21 documented as of this encounter
--- OUTSIDE RECORDS SUMMARY | 2025-01-27 16:08 | XMS_ITS | Clinical Summary ---
Author Organization [facility] r Address [address] [place] [address] Phone Care Team Providers Care Undergraduate Internship Name Role Phone Unavailable Primary Care Provider [...] week for recheck with Dr. Palomares in [place] because he is unable to travel to [facility] next week, sooner if increased pain, redness, discharge, or as needed. As long as cornea epi defect healed then, can see me in [place] Jun 05 for POM 1 check with [...] Patient would like to be seen in [place]. Assessment & Plan (12/12/2019 3:28 PM EST): [...] (12/12/2019): Added automatically from request for surgery [id number] Encounters Date Type Department Care Team Description 01/13/2025 Telephone Department of Otolaryngology [address] [facility] [address] [place] [address] Pcp-Confirmed, No Appointment from Last [...] this topic Medical Devices Implanted Type Area Ui Ux Web Developer Device Identifier Shelf Expiration Date Model / Serial / Lot Kit Tissue Closure Duo * Sealant Fibri Glue Tisseel 4ml Frozen Kit Fibrin Sealant - [id number] - [id number] Implanted:Qty: 1 on 05/10/2020 by Tasneem Harp MD, PhD at [facility] Left: Eye Mancera/Internatio nal 06/11/2021 [id number] / [id number] 1 / [id number]
--- OUTSIDE RECORDS SUMMARY | 2025-01-27 16:08 | XMS_ITS | Encounter Summary ---
Author Organization [employer] Address [address] [place] [address] 7 h Floor [place] [id number] Care Team Providers Care Distribution Superintendent Name Role Phone Miguel Kwok MD Primary Care Provider [phone] Encounter Details Date Type Department Care Team (Late st Contact Info) Description 09/12/2022 Telephone [facility]CIAL [facility] [address] [place] [address] Alisa Echols Social History Tobacco Use Types [...] EDT Office Visit [facility] MAIN ADULT [address] [place] [address] Miguel Kwok MD [address] [place] [address] documented as of this encounter Visit Diagnoses Not on filedocumented in this encounter Care Teams Distribution Superintendent Relationship Specialty Start Date End Date Miguel Kwok MD [address] [place] [address] PCP - General 10/12/21 documented as of this encounter
[2025-01-27] MEDS: Lactated Ringers 1,000 ML 100 ML IVCONT (17:20)
[2025-01-27 17:51] VITALS: BP 94/59; PULSE 74; RESP 14; TEMP 36.4; O2SAT 98
[2025-01-27 19:43] VITALS: BP 108/66; PULSE 76; RESP 20; TEMP 36.5; O2SAT 96
[2025-01-27 22:57] VITALS: BP 88/57; PULSE 69; RESP 18; TEMP 37; O2SAT 97
[2025-01-27] MEDS: Lactated Ringers 1,000 ML 999 ML IV (23:20)
[2025-01-27 23:43] LABS: MANUAL DIFF FLAG NO
[2025-01-27 23:45] LABS: Basophils Percent Auto 0.4 % (0-2); Eosinophils Absolute Auto 0.1 X10*3/uL (0.0-0.4); Eosinophils Percent Auto 1.5 % (0-4); Hematocrit 37.2 % (42.0-52.0); Hemoglobin 11.9 g/dl (14.0-18.0); Imm Gran Abs Auto 0.01 X10*3/uL (0.00-0.03); Imm Gran Pct Auto 0.1 % (0.0-0.4); Lymphocytes Absolute Auto 2.5 X10*3/uL (1.2-4.9); Mean Corpuscular Hemoglobin 25.4 pg (27.0-33.0); Mean Corpuscular Volume 79.3 fL (80.0-98.0); Mean Platelet Volume 10.4 fL (9.4-12.4); Monocytes Absolute Auto 0.5 X10*3/uL (0.1-1.2); Monocytes Percent Auto 7.8 % (2-11); Neutrophils Absolute Auto 3.6 x10*3/uL (2.0-8.3); Neutrophils Percent Auto 53.2 % (45-73); Platelet Count 256 X10*3/uL (160-400); Red Blood Count 4.69 X10*6/uL (4.60-5.80); Red Cell Distribution Width 13.2 % (11.0-16.0); White Blood Count 6.7 X10*3/uL (4.8-10.8)
[2025-01-28 00:03] LABS: Alanine Aminotransferase 26 U/L (0-40); Anion Gap 13 (12-20); Aspartate Amino Transferase 9 U/L (5-37); Bilirubin Total 0.3 mg/dL (0.0-1.0); Blood Urea Nitrogen 12 mg/dL (9-16); Calcium 9.1 mg/dL (8.4-10.2); Carbon Dioxide 22 mmol/L (22-29); Chloride 110 mmol/L (96-108); Estimated Glomerular Filt Rate > 60; Glucose Random 121 mg/dL (60-115); Potassium 4.4 mmol/L (3.3-5.1); Sodium 141 mmol/L (135-145); Total Protein 7.2 g/dL (6.5-8.0)
[2025-01-28 00:10] LABS: Alkaline Phosphatase 69 U/L (39-117); Lactic Acid 2.7 mmol/L (0.5-2.0)
[2025-01-28] MEDS: Albumin Human 25 % 100 ML 133.33 ML IV ×2 (00:22→01:13)
[2025-01-28 00:29] VITALS: BP 108/64
[2025-01-28 01:19] VITALS: BP 110/68
[2025-01-28 01:41] LABS: Reflex Lactate? Lactic Acid Added
[2025-01-28 02:14] LABS: ~Lactic Acid-LAB USE ONLY 1.1 mmol/L (0.5-2.0)
[2025-01-28 03:27] VITALS: BP 117/77; PULSE 62; RESP 18; TEMP 36.5; O2SAT 98
[2025-01-28 06:19] LABS: MANUAL DIFF FLAG NO
[2025-01-28 06:24] LABS: Basophils Percent Auto 0.4 % (0-2); Eosinophils Absolute Auto 0.1 X10*3/uL (0.0-0.4); Eosinophils Percent Auto 1.1 % (0-4); Hematocrit 37.7 % (42.0-52.0); Hemoglobin 11.8 g/dl (14.0-18.0); Imm Gran Abs Auto 0.01 X10*3/uL (0.00-0.03); Imm Gran Pct Auto 0.2 % (0.0-0.4); Lymphocytes Absolute Auto 2.1 X10*3/uL (1.2-4.9); Lymphocytes Percent Auto 37.2 % (20-40); Mean Corpuscular HGB Conc 31.3 g/dl (31.0-36.0); Mean Corpuscular Hemoglobin 24.9 pg (27.0-33.0); Mean Corpuscular Volume 79.5 fL (80.0-98.0); Mean Platelet Volume 11.3 fL (9.4-12.4); Monocytes Absolute Auto 0.5 X10*3/uL (0.1-1.2); Neutrophils Absolute Auto 2.9 x10*3/uL (2.0-8.3); Neutrophils Percent Auto 52.1 % (45-73); Platelet Count 182 X10*3/uL (160-400); Red Blood Count 4.74 X10*6/uL (4.60-5.80); Red Cell Distribution Width 13.1 % (11.0-16.0); White Blood Count 5.6 X10*3/uL (4.8-10.8)
[2025-01-28 06:50] LABS: Alanine Aminotransferase 32 U/L (0-40); Albumin Level 4.8 g/dL (3.5-5.0); Alkaline Phosphatase 56 U/L (39-117); Anion Gap 13 (12-20); Aspartate Amino Transferase 29 U/L (5-37); Bilirubin Total 0.5 mg/dL (0.0-1.0); Blood Urea Nitrogen 9 mg/dL (9-16); Calcium 9.6 mg/dL (8.4-10.2); Carbon Dioxide 22 mmol/L (22-29); Chloride 111 mmol/L (96-108); Estimated Glomerular Filt Rate > 60; Glucose Random 90 mg/dL (60-115); Potassium 5.1 mmol/L (3.3-5.1); Sodium 141 mmol/L (135-145); Total Protein 7.9 g/dL (6.5-8.0)
--- NOTE | 2025-01-28 07:17 | PHA.MEDREC ---
Pharmacy Consult ? Medication Reconciliation Pharmacy has completed the medication reconciliation. Pt discharged from Psych floor to med floor 01/27/25. Utilized discharge packet to confirm meds.
[2025-01-28 07:42] VITALS: PULSE 62; RESP 18; TEMP 36.6; O2SAT 99
[2025-01-28] MEDS: buPROPion HCl XL 150 MG TAB.ER.24H PO (09:00)
[2025-01-28] MEDS: Escitalopram Oxalate 20 MG TABLET PO (09:00)
[2025-01-28] MEDS: OLANZapine 5 MG TABLET PO (09:00)
[2025-01-28] MEDS: Aspirin Enteric Coated 81 MG TABLET.DR PO (09:00)
[2025-01-28] MEDS: 0.9 % Sodium Chloride Flush 3 ML SYRINGE IVFLUSH (09:06)
--- NOTE | 2025-01-28 09:57 | P.DS_ITS ---
DS: Providers Provider Date of Service: 01/28/25 Date of admission: 01/27/25 14:56 Date of discharge: 01/28/25 Primary care physician: Unknown Physician Consults: 01/27/25 14:52 Consult for Sitter Routine Reason for consultation: Pt with SI, transfer from psych 01/27/25 17:50 Consult to Psychiatry Routine Consulting Provider: [facility] Psych Covering Reason for consultation: Med management, continuity of care; pt a transfer from 01/28/25 08:58 Inpt CARE Team Crisis Consult Routine Comment: Reason for consultation: bed hold from yesterday per yesi Malhotra Attending physician on discharge: Moe Palmer Discharging clinician: Moe Palmer DS: Diagnosis Discharge Diagnosis (1) Pre-syncope: Status: Acute (2) Hypotension: Status: Acute DS: Summary Hospital Course Hospital Course: HPI:39-year-old [facility] creole-speaking male with a PMH significant for HTN, HLD, GERD, , chronic dysphagia tobacco use disorder, and MDD with previous SI attempt who was admitted to Psychiatric unit for increasing depression with SI with plan to stab himself, jump off a bridge/building, or ingest rat poison. Pt presented to [facility] ED with initial complaints of difficulty swallowing that has been ongoing for months after suicide attempt of cutting his throat. Pt was supposed to follow up with ENT that day but was unable to make appointment due to transportation difficulties. Pt also apparently had been noncompliant with home medications including antihypertensives and psychiatric medications as he was unable to swallow pills due to dysphagia. Rapid response was called as pt had a presyncopal episode while on the unit. Pt was ambulating with provider when he became unsteady on his feet, complain of lightheadedness and dizziness, and was brought to a room and sat down in a chair. Unclear if pt lost consciousness or not. No tonic-clonic or seizure-like activity noted. Patient's vitals were significant for BP of 81/50. POC 121. Pt complained of feeling lightheaded and dizzy, and feeling ?like my throat is closing?. Pt also noted that he had unintentional weight loss of 15 kilos since October. Denies any other acute medical complaints. No chest pain/pressure, palpitations. Denies fever, chills, nausea, vomiting, diarrhea. No abdominal pain. No SOB or difficulty breathing. IV line was established and pt was administered IVF bolus with rapid improvement of BP to 93/60. Of note, nursing notified hospitalist services last night that pt was hypertensive as high as 166/116. Pt reports not taking his antihypertensives for the past few days. Medication review indicate pt was on lisinopril 40 mg daily as well as losartan. Losartan was stopped and pt received lisinopril 40 mg p.o. last night at approximately 18:00. Pt reports has not been eating or drinking normally for quite some time due to dysphagia and anhedonia. Review of records from earlier in the day indicates pt was hypotensive at 88/58 at 08:00 and 82/58 at 11:14. Labs from yesterday reviewed, significant for mildly elevated A1c of 6.1 and elevated lipid panel. Pt has so far refused any additional labs. Pt was brought to the medical floor under observation due to presyncope and hypotension for further management and evaluation Hospital course : Patient came to the medicine floor because had episode of hypotension and dizziness/presyncope: Seems multifactorial-decreased p.o. intake, blood pressure medication unclear why the patient is on SANDEEP/ARB together .Patient was given fluid and blood pressure responded promptly to IV fluids. Patient currently asymptomatic, labs CBC and BMP seems fine. Telemetry reviewed patient is sinus rhythm. Currently blood pressure is 138/88 mmhg (checked manually), discussed with the psychiatric provider if blood pressure stays consistently above 140s/90 then please consider adding lisinopril 5 mg daily and slowly up titrate if needed, patient was also encouraged for hydration and p.o. intake. Monitor blood pressure closely. Dysphagia noonan patient was seen by speech and swallow yesterday -recommended chopped/advanced (NND3) diet with thin liquids, larger pills crushed in puree. consider GI eval if persistent symptoms. boderline dm: hba1c levels yesterday 6.1: not on any bm meds -consider monitoring fingersticks with sliding scale coverage, if possible diabetic diet. plan: Monitor blood pressure closely, if persistently above 140/90 mmHg-consider adding lisinopril 5 mg daily and if needed up titrate for BP. boderline dm: monitoring fingersticks with sliding scale coverage. Assessment and plan coordination time spent 40 minute patient understand and in agreement with the above plan, we used Ray educational sign language interpreter for information. Time Attestation Total time managing care of this patient today: 40 mintues. Discharge Coordination Time (in mins): 40 min Quality: Safe Use of Opioids Does Pt have an Active Cancer Diagnosis on the Problem List?: No Quality: Stroke Does the patient have a stroke diagnosis?: No Physical Exam Vital Signs: Vital Signs: Last Vital Signs Temp 97.9 F 01/28/25 07:42 Pulse 62 01/28/25 07:42 Resp 18 01/28/25 07:42 BP 117/77 01/28/25 03:27 Pulse Ox 99 01/28/25 07:42 O2 Del Method Room Air 01/28/25 07:42 Appearance: Alert.? Oriented X3. cvs: rrr, [id number] . res: clear to auscultation . abd: no rebound or guarding ,nt, bs present. ext pulses present , no cyanosis . neuro: axo3 , nonfocal. DS: Data Data Completed and Pending Labs on day of discharge: Laboratory Results - last 24 hr 01/27/25 01/28/25 01/28/25 23:35 01:50 05:50 WBC 6.7 5.6 RBC 4.69 4.74 Hgb 11.9 L 11.8 L Hct 37.2 L 37.7 L MCV 79.3 L 79.5 L MCH 25.4 L 24.9 L MCHC 32.0 31.3 RDW 13.2 13.1 Plt Count 256 182 D MPV 10.4 11.3 Immature Gran % (Auto) 0.1 0.2 Neut % (Auto) 53.2 52.1 Lymph % (Auto) 37.0 37.2 Benson % (Auto) 7.8 9.0 Eos % (Auto) 1.5 1.1 Baso % (Auto) 0.4 0.4 Lymph # (Auto) 2.5 2.1 Benson # (Auto) 0.5 0.5 Eos # (Auto) 0.1 0.1 Baso # (Auto) 0.0 0.0 Abs Immat Gran (auto) 0.01 0.01 Absolute Neuts (auto) 3.6 2.9 Absolute Nucleated RBC 0.000 0.000 Nucleated RBC % (auto) 0.0 0.0 Sodium 141 141 Potassium 4.4 5.1 Chloride 110 H 111 H Carbon Dioxide 22 22 Anion Gap 13 13 BUN 12 9 Creatinine 0.82 0.78 Estim Creat Clear Calc TNP TNP Estimated GFR > 60 > 60 Random Glucose 121 H 90 Lactic Acid 2.7 H* Lactic Acid F/U @ 2Hr 1.1 Calcium 9.1 9.6 Total Bilirubin 0.3 0.5 AST 9 29 ALT 26 32 Alkaline Phosphatase 69 56 Total Protein 7.2 7.9 Albumin 4.0 4.8 Discharge Plan Discharge Anticipated Discharge Date/Time: 01/28/25 09:47 Patient Disposition: Xfer Psychiatric Hosp Discharge Diagnosis: hypotension due to regis meds and dehydration/decrease po intake ,boderline dm Referrals: Physician,Unknown J [Primary Care Provider] - 1 Week Discharge Medications: Continued atorvastatin 80 mg Tablet 80 mg PO BEDTIME olanzapine 5 mg Tablet 5 mg PO DAILY olanzapine 10 mg Tablet 10 mg PO BEDTIME pantoprazole 40 mg Tablet,Delayed Release (Dr/Ec) 40 mg PO DAILY@0630 hydroxyzine HCl 25 mg Tablet 25 mg PO TID PRN (Reason: Anxiety) escitalopram oxalate 20 mg Tablet 20 mg PO DAILY bupropion HCl 150 mg Tablet Extended Release 24 Hr 150 mg PO DAILY aspirin 81 mg Tablet,Delayed Release (Dr/Ec) 81 mg PO DAILY Discharge Orders: Discharge Order (Routine); Ordered 01/28/25 Ordered By: Moe Palmer Diet: Advance to usual diet Activity on Discharge: As tolerated Stand Alone Forms: Patient Portal Discharge page Print Language: [facility] Care Plan Goals: Patient came to the medicine floor because had episode of hypotension and dizziness/presyncope: Seems multifactorial-decreased p.o. intake, blood pressure medication unclear why the patient is on SANDEEP/ARB together .Patient was given fluid and blood pressure responded promptly to IV fluids. Patient currently asymptomatic, labs CBC and BMP seems fine. Telemetry reviewed patient is sinus rhythm. Currently blood pressure is 138/88 mmhg (checked manually), discussed with the psychiatric provider if blood pressure stays consistently above 140s/90 then please consider adding lisinopril 5 mg daily and slowly up titrate if needed, patient was also encouraged for hydration and p.o. intake. Monitor blood pressure closely. Dysphagia noonan patient was seen by speech and swallow yesterday -recommended chopped/advanced (NND3) diet with thin liquids, larger pills crushed in puree. consider GI eval if persistent symptoms. boderline dm: hba1c levels yesterday 6.1: not on any bm meds -consider monitoring fingersticks with sliding scale coverage, if possible diabetic diet. Health Concerns: as above. Plan of Treatment: as above.
[2025-01-30 07:30] LABS: Glucose, Whole Blood 108 mg/dL (60-115)
== END 2025-01-28 11:04 ==
PROVIDERS: Student in an Organized Health Care Education/Training Program; Admitting Provider Student in an Organized Health Care Education/Training Program; Visit Provider Internal Medicine
DX: I95.9 Hypotension, unspecified (principal); R73.03 Prediabetes; E86.0 Dehydration; R55 Syncope and collapse; I10 Essential (primary) hypertension; E78.5 Hyperlipidemia, unspecified; K21.9 Gastro-esophageal reflux disease without esophagitis; R13.10 Dysphagia, unspecified; F32.9 Major depressive disorder, single episode, unspecified; Z79.899 Other long term (current) drug therapy
CPT/HCPCS: 36415; 80053; 82947; 83605; 85025; 96361; 96365; 96366; 99222; J7120; P9047; S9485

== ENCOUNTER → 2025-01-27 14:56 | Outpatient (BNV) | payer SELFPAY | PROVIDERS: Admitting Provider Student in an Organized Health Care Education/Training Program; Visit Provider Internal Medicine | DX: R55 Syncope and collapse (principal); I95.9 Hypotension, unspecified | CPT/HCPCS: 99222; 99239 ==

== ENCOUNTER 2025-01-28 11:05 | Outpatient (BNV) | payer SELFPAY | END 2025-02-06 15:02 | PROVIDERS: Admitting Provider Psychiatry & Neurology Psychiatry; Visit Provider Internal Medicine Cardiovascular Disease | DX: R00.0 Tachycardia, unspecified (principal) | CPT/HCPCS: 93010 ==

== ENCOUNTER 2025-01-28 11:05 | Inpatient (IN) | payer MEDICAID, OTHER, SELFPAY ==
[2025-01-28 11:05] VITALS: BP 138/89; PULSE 78; RESP 18; TEMP 36.6; O2SAT 98; BMI 24.0
--- OUTSIDE RECORDS SUMMARY | 2025-01-28 11:07 | XMS_ITS | Encounter Summary ---
Author Organization [employer] Address [address] [facility] 7t [place] [address] Care Team Providers Care Director Of Marketing Name Role Phone Miguel Kwok MD Primary Care Provider [phone] Reason for Visit * Reason Comments Referral ENT trouble swallowing Encounter Details Date Type Department Care Team (Late st Contact Info) Description 01/23/2025 8:40 AM EDT Office Visit [facility] MAIN ADULT [address] [place] [address] Miguel Kwok MD [address] [place] [address] Bloating (Primary Dx) Social History Tobacco Use [...] with others, in a hotel, in a chcf, living outside on the street, on a [...] Kwok MD - 01/23/2025 8:40 AM EDT [address] [id number] [email or web address] History of Present Illness: Patient is a [...] Violence: Not At Risk (09/30/2024) Received from [facility] Intimate Partner Violence Are you denied basic [...] Description 02/09/2025 9:40 AM EDT Office Visit [facility] MAIN ADULT [address] [place] [address] Miguel Kwok MD [address] [place] [address] documented as of this encounter Visit Diagnoses Diagnosis Bloating- Primary Flatulence, eructation, and gas pain documented in this encounter Additional Health Concerns Assessment Noted Time PHQ-9 Depression Total Score: 14 025 12:48 PM EST documented as of this encounter Care Teams Director Of Marketing Relationship Specialty Start Date End Date Miguel Kwok MD [address] [place] [address] PCP - General 10/12/21 documented as of this encounter
--- OUTSIDE RECORDS SUMMARY | 2025-01-28 11:08 | XMS_ITS | Referral Summary ---
Author Organization [facility] r Address [address] [address] Phone Care Team Providers Care Elevator Constructor Hydraulic Name Role Phone Unavailable Primary Care Provider Unavailabl e Encounters Date Type Department Care Team Description 01/13/2025 Telephone Department of Otolaryngology [address] [facility] [address] [place] [address] Pcp-Confirmed, No Appointment from Last [...] week for recheck with Dr. Palomares in [place] because he is unable to travel to [facility] next week, sooner if increased pain, redness, discharge, or as needed. As long as cornea epi defect healed then, can see me in [place] Jun 05 for POM 1 check with [...] Patient would like to be seen in [place]. Assessment & Plan (12/12/2019 3:28 PM EST): [...] (12/12/2019): Added automatically from request for surgery [id number] Social History Tobacco Use Types Packs/Day Years [...] on file Medical Devices Implanted Type Area Diesel Crane Operator Device Identifier Shelf Expiration Date Model / Serial / Lot Kit Tissue Closure Duo * Sealant Fibri Glue Tisseel 4ml Frozen Kit Fibrin Sealant - [id number] - [id number] Implanted:Qty: 1 on 05/10/2020 by Tasneem Harp MD, PhD at [facility] Left: Eye Mancera/Internatio nal 06/11/2021 [id number] / [id number] 1 / [id number]
--- OUTSIDE RECORDS SUMMARY | 2025-01-28 11:08 | XMS_ITS | Clinical Summary ---
Author Organization [employer] Address [address] [facility] 7t [place] [address] Care Team Providers Care Hose Operator Name Role Phone Miguel Kwok MD Primary Care Provider [phone] Allergies No known active allergies Medications * [...] week for recheck with Dr. Palomares in [place] because he is unable to travel to [facility] next week, sooner if increased pain, redness, discharge, or as needed. As long as cornea epi defect healed then, can see me in [place] Jun 05 for POM 1 check with refraction. 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 Date Type Department Care Team Description 01/23/2025 8:40 AM EDT Office Visit [facility] [place]IN [place] [facility] [place] [address] Miguel Kwok MD Bloating (Primary Dx) 12/28/2024 2:20 PM EDT Office Visit [facility] [place] [place] [facility] [address] Miguel Kwok MD Neck pain (Primary Dx); Palpitation; Anxiety; Penetrating traumatic injury of neck; Sore throat 12/28/2024 Telephone [facility] FINANCIAL ASSIST [address] [place] [address] [facility] [place], Alisa 12/28/2024 Telephone [facility] FINANCIAL ASSIST [address] [place] [address] [facility] [place], Alisa 12/16/2024 9:40 AM EST Office Visit [facility] [place] [address] Miguel Kwok MD Chronic superficial gastritis without bleeding (Primary Dx); Mood disorder due to known physiological condition, unspecified; Irritant contact dermatitis due to cosmetics 12/01/2024 3:00 PM EST Office Visit [facility] [place] [address] Miguel Kwok MD Irritant contact dermatitis due to cosmetics (Primary Dx); Mixed hyperlipidemia; HTN (hypertension), benign; Moderate episode of recurrent major depressive disorder ([facility]) 11/21/2024 Patient Outreach [facility] [place]IN [place] [address] Jose Torrez 11/14/2024 10:00 AM EST Office Visit [facility] [place] [address] Miguel Kwok MD Mixed hyperlipidemia; HTN (hypertension), [...] with others, in a hotel, in a mcc, living outside on the street, on a [...] Upcoming Encounters Date Type Department Care Team ([facility] st Contact Info) Description 02/09/2025 9:40 AM EDT Office Visit [facility] MAIN ADULT [address] [place] [address] Miguel Kwok MD [address] [place] [address] Health Maintenance Due Date Last Done Comments [...] PM EDT) Cholesterol, Total 117 <200 mg/dL [facility] [place] HDL Cholesterol 41 > OR = 40 mg/dL [facility] [place] Triglycerides 81 <150 mg/dL [facility] [place] LDL Cholesterol 60 mg/dL [facility] [place] Comment: Reference range: <100 Desirable range <100 mg/dL for primary prevention; ?? <70 mg/dL for patients with CHD or diabetic patients with > or = 2 CHD risk factors. LDL-C is now calculated using the Nathalie calculation, which is a validated novel method providing better accuracy than the Friedewald equation in the estimation of LDL-C. Benjamín SS et al. VLADISLAV. 2013;310(19): 1284-6021 (http://education.CloudFactory/faq/ENV217) Chol/HDLC Ratio 2.9 <5.0 (calc) [facility] [place] Non-HDL Cholesterol 76 <130 mg/dL [facility] [place] Comment: For patients with diabetes plus 1 major ASCVD risk factor, treating to a non-HDL-C goal of <100 mg/dL (LDL-C of <70 mg/dL) is considered a therapeutic option. Blood Venous blood specimen / Unknown 08/04/2024 7:22 PM EDT 08/05/2024 4:07 AM EDT Narrative [facility] - 08/09/2024 3:46 PM EDT FASTING:UNKNOWN FASTING: UNKNOWN us Melvin Ortiz MD LAB BLOOD ORDERABLES Final Re sult [facility] [address], [place] [address] [facility] [place] [address] [place] [address] * (ABNORMAL) POCT A1C (08/04/2024 6:34 PM EDT) Hemoglobin A1C 6.1(A) 4.0 - 6.0 % Blood 08/04/2024 6:34 PM EDT Melvin Ortiz MD POINT OF CARE TEST ENTER/EDIT ORDERABLES Final Result from Last 3 Months or Most Recently Relevant to Health Maintenance [place] [address] [place] [address] LIMITED HSN FULL Care Teams Hose Operator Relationship Specialty Start Date End Date Miguel Kwok MD [address] [place] [address] PCP - General 10/12/21
--- OUTSIDE RECORDS SUMMARY | 2025-01-28 11:08 | XMS_ITS | Encounter Summary ---
Author Organization [facility] r Address [address] [facility] [place] [address] Phone Care Team Providers Care Fur Repairer Name Role Phone Unavailable Primary Care Provider Unavailabl e Reason for Visit * Reason Onset Date Comments Appointment 01/13/2025 Encounter Details Date Type Department Care Team (Late st Contact Info) Description 01/13/2025 Telephone Department of Otolaryngology [address] [address] Pcp-Confirmed, No Appointment Social History [...] presents with Appointment Sugar, calling from [facility], in regard to scheduling new pt appt, Advised 7 business days TAT. Cb: [phone]; if unable to reach please call pt at [phone]. documented in this encounter Plan of Treatment Not on file documented as of this encounter Visit Diagnoses Not on filedocumented in this encounter
--- OUTSIDE RECORDS SUMMARY | 2025-01-28 11:08 | XMS_ITS | Encounter Summary ---
Author Organization [facility] r Address [address] [address] Phone Care Team Providers Care Health Sciences Dean Name Role Phone Unavailable Primary Care Provider Unavailabl e Encounter Details Date Type Department Care Team (Late st Contact Info) Description 12/12/2019 Telephone Eye Care [address] [place] [address] Tasneem Harp MD, PhD [address] [place] [address] Social History Tobacco Use Types Packs/Day Years [...]
--- OUTSIDE RECORDS SUMMARY | 2025-01-28 11:08 | XMS_ITS | Encounter Summary ---
Author Organization [employer] Address [address] [place] [address] 7 h Floor [place] [id number] Care Team Providers Care Teamsite Developer Name Role Phone Miguel Kwok MD Primary Care Provider [phone] Encounter Details Date Type Department Care Team (Late st Contact Info) Description 09/12/2022 Telephone [facility] FIN[facility]CIAL [facility] [address] [place] [address] Alisa Echols Social History Tobacco Use Types [...] EDT Office Visit [facility] MAIN ADULT [address] [place] [address] Miguel Kwok MD [address] [place] [address] documented as of this encounter Visit Diagnoses Not on filedocumented in this encounter Care Teams Teamsite Developer Relationship Specialty Start Date End Date Miguel Kwok MD [address] [place] [address] PCP - General 10/12/21 documented as of this encounter
--- OUTSIDE RECORDS SUMMARY | 2025-01-28 11:08 | XMS_ITS | Encounter Summary ---
Author Organization [employer] Address [address] [facility] 7t [place] [address] Care Team Providers Care Usability Strategist Name Role Phone Miguel Kwok MD Primary Care Provider [phone] Reason for Visit * Reason Comments Med Change Request Encounter Details Date Type Department Care Team ([facility] st Contact Info) Description 08/04/2024 Refill [facility] MAIN ADULT [address] [place] [address] Melvin Ortiz MD [address] [place] [address] Social History Tobacco Use Types Packs/Day Years [...] Office Visit [facility] MAIN ADULT [address] [place] [address] Miguel Kwok MD [address] [place] [address] documented as of this encounter Visit Diagnoses Not on filedocumented in this encounter Care Teams Usability Strategist Relationship Specialty Start Date End Date Miguel Kwok MD [address] [place] [address] PCP - General 10/12/21 documented as of this encounter
--- OUTSIDE RECORDS SUMMARY | 2025-01-28 11:08 | XMS_ITS | Clinical Summary ---
Author Organization [facility] r Address [address] [place] [address] Phone Care Team Providers Care It Technician Name Role Phone Unavailable Primary Care [...] week for recheck with Dr. Palomares in [place] because he is unable to travel to [facility] next week, sooner if increased pain, redness, discharge, or as needed. As long as cornea epi defect healed then, can see me in [place] Jun 05 for POM 1 check with [...] Patient would like to be seen in [place]. Assessment & Plan (12/12/2019 3:28 PM EST): [...] (12/12/2019): Added automatically from request for surgery [id number] Encounters Date Type Department Care Team Description 01/13/2025 Telephone Department of Otolaryngology [address] [facility] [address] [place] [address] Pcp-Confirmed, No Appointment from Last [...] this topic Medical Devices Implanted Type Area Print Line Tailer Device Identifier Shelf Expiration Date Model / Serial / Lot Kit Tissue Closure Duo * Sealant Fibri Glue Tisseel 4ml Frozen Kit Fibrin Sealant - [id number] - [id number] Implanted:Qty: 1 on 05/10/2020 by Tasneem Harp MD, PhD at [facility] Left: Eye Mancera/Internatio nal 06/11/2021 [id number] / [id number] / [id number]
--- OUTSIDE RECORDS SUMMARY | 2025-01-28 11:08 | XMS_ITS | Encounter Summary ---
Author Organization [employer] Address [address] [facility] 7 [place] [address] Care Team Providers Care Chief Environmental Commitment Officer Name Role Phone Miguel Kwok MD Primary Care Provider [phone] Reason for Visit * Reason Onset Date Comments Advice Only 08/29/2024 Encounter Details Date Type Department Care Team ([facility] Contact Info) Description 08/29/2024 Telephone [facility] [address] [place] [address] Miguel Kwok MD [address] [place] [address] Advice Only Social History Tobacco Use Types [...] He's Been Calling for 2. Weeks Now. Pashto Creole Language Assessment Notes 1st attempt no answer. msrn 2nd attempt no answer. msrn documented in this encounter Plan of Treatment Upcoming Encounters Date Type Department Care Team (Late st Contact Info) Description 02/09/2025 9:40 AM EDT Office Visit [facility] MAIN ADULT [address] [place] [id number] Miguel Kwok MD [address] [place] [phone] documented as of this encounter Visit Diagnoses Not on filedocumented in this encounter Care Teams Chief Environmental Commitment Officer Relationship Specialty Start Date End Date Miguel Kwok MD [address] [place] [id number] PCP - General 10/12/21 documented as of this encounter
--- NOTE | 2025-01-28 13:04 | HO.PSYADMNOT ---
HPI Date of Service: 01/28/25 Chief Complaint: depression Sources of Information: patient interviewed and chart reviewed HPI Subjective Notes: Orr Warning and Conditional Voluntary Healthcare Proxy: No Guardianship: No Narrative: Marquez is a 39-year-old male, Irish/[place], Creole speaking with no known psychiatric history who has been prescribed Zyprexa, Lexapro. He was sent to us from the [facility] because of complaints with swallowing. He had a suicide attempt by cutting his neck laterally in a suicide attempt. He feels it is swollen and he can swallow. He did have a swallow study yesterday which was nonconclusive. No history of substance abuse. Yesterday after he had his intake on our unit he became quite hypotensive and a rapid response was called and he was subsequently transferred to the medical unit and the understanding was that it was probably related to his nutrition and hydration and also that he was on 40 mg of lisinopril and losartan!. Both have been held for now. Yesterday some collateral information was obtained from his father who reported that he has never had any suicidality prior to the event of cutting his neck. He was working and was productive. And also that he was consistent with his medications Today's interview was with the help of an interpretation device and the interpreters number was [id number] Past Psychiatric History: Denies history of psychiatric admissions Medical Evaluation Reviewed: Yes [facility] Medical History (Updated 01/27/25 @ 20:04 by MYRNA Bishop) Depression Family History: Deferred Social History: Lives with family members, sister Substance History: None Trauma History: Deferred Diagnostics Vital Signs (24Hr): Vital Signs - 24 hr 01/28/25 11:05 Temperature 98 F Pulse Rate 78 Respiratory Rate 18 Blood Pressure 138/89 Pulse Oximetry 98 Oxygen Delivery Method Room Air BMI result Body Mass Index 24.0 Meds/Allergies Meds Home Medications ?Medication ?Instructions ?Recorded ?Confirmed ?Type atorvastatin 80 mg tablet 80 mg PO BEDTIME 01/26/25 01/28/25 History bupropion HCl 150 mg 24 hr tablet, 150 mg PO DAILY 01/26/25 01/28/25 History extended release escitalopram oxalate 20 mg tablet 20 mg PO DAILY 01/26/25 01/28/25 History hydroxyzine HCl 25 mg tablet 25 mg PO TID PRN Anxiety 01/26/25 01/28/25 History olanzapine 10 mg tablet 10 mg PO BEDTIME 01/26/25 01/28/25 History olanzapine 5 mg tablet 5 mg PO DAILY 01/26/25 01/28/25 History pantoprazole 40 mg tablet,delayed 40 mg PO DAILY@0630 01/26/25 01/28/25 History release aspirin 81 mg tablet,delayed 81 mg PO DAILY 01/28/25 01/28/25 History release Allergies Allergies Allergy/AdvReac Type Severity Reaction Status Date / Time No Known Allergies Allergy Verified 01/26/25 16:28 Mental Status Exam Mental Status Exam Narrative: In today's visit he is alert, oriented x3. Affect is flat and subdued with depressed mood. Speech is normal. Little to no eye contact. Affect is appropriate and subdued. Mood is depressed. No signs of psychosis. No overt delusions. Cognitively he is grossly intact. Judgment is generally intact. He denies any active SI. He did admit to having had suicidal ideations because of frustration and discomfort in his throat. Assessment & Plan Assessment & Plan (1) Depression: Status: Acute Code(s): F32.A - Depression, unspecified (2) Dysphagia: Status: Acute Qualifiers: Dysphagia type: oropharyngeal phase Qualified Code(s): R13.12 - Dysphagia, oropharyngeal phase Code(s): R13.10 - Dysphagia, unspecified Plan 39-year-old male with history of previous suicide attempt by laceration of his neck and subsequent discomfort in swallowing with no findings on the swallow study done by speech therapist. He continues to want to see a specialist. He was admitted to our unit for safety and stabilization. Current medications were reviewed and maintained. Consider a GI consult for next week. Patient educated on: diagnosis, medication risk/benefits and medical condition Reason for continued inpatient stay Substantial Risk for: harm to self Statement Statement: I have reviewed the history and physical and performed a pertinent examination on my patient. No changes have occurred unless specified. If the History and Physical was not performed prior to admission, the Hospitalist's service will be consulted for completing the admission physical. Time Spent With Patient Time: Total time managing care of this patient today ____ minutes.
--- NOTE | 2025-01-28 19:14 | PC.ADMIT ---
Marquez is a 39-year-old male, Sinhala/ Belgian Creole speaking man who was initially admitted two days ago for SI.? He had missed an appointment with ENT for his longstanding throat issues.?Pt states he needs an endoscopy. Marquez became suicidal & threatening to stab himself.? He has a history of past suicide attempts, including cutting his throat. He in treatment for MDD.? He denies any active SI. He did admit to having had suicidal ideations because of frustration and discomfort in his throat.? He reports continued throat difficulty.? Swallow eval was done yesterday & passed.? Yesterday he was hypertensive, treated with lisinopril, then became hypotensive.? He was [place] [facility] [place] & is now back on M5.? Pt is here on a CV.? He is cooperative & pleasant. Affect is flat and subdued with depressed mood.? Limited eye contact.? Skin check unremarkable.? Pt is placed on 15min safety checks.
[2025-01-28 20:00] VITALS: BP 122/81; PULSE 100; RESP 18; TEMP 36.9; O2SAT 99
[2025-01-29 07:47] LABS: Glucose, Whole Blood 100 mg/dL (60-115)
[2025-01-29 08:00] VITALS: BP 137/103; PULSE 98; TEMP 36.9; O2SAT 97
[2025-01-29 08:56] LABS: Alanine Aminotransferase 38 U/L (0-40); Alkaline Phosphatase 69 U/L (39-117); Anion Gap 15 (12-20); Aspartate Amino Transferase 27 U/L (5-37); Bilirubin Total 0.2 mg/dL (0.0-1.0); Blood Urea Nitrogen 7 mg/dL (9-16); Calcium 10.3 mg/dL (8.4-10.2); Carbon Dioxide 25 mmol/L (22-29); Chloride 106 mmol/L (96-108); Creatinine Clr Calc Pharmacy 139.9; Estimated Glomerular Filt Rate > 60; Glucose Random 102 mg/dL (60-115); Potassium 4.2 mmol/L (3.3-5.1); Sodium 142 mmol/L (135-145); Total Protein 8.3 g/dL (6.5-8.0)
[2025-01-29 09:00] VITALS: BP 126/88
--- NOTE | 2025-01-29 09:59 | HO.PSYCHPN ---
Subjective Subjective Date of Service: 01/29/25 Reason For Visit: depression Subjective Notes: Conditional Voluntary Healthcare Proxy: No Guardianship: No Medical Problems Affecting Mental Status: No Interim History: Patient was seen and discussed in rounds today. Records and plans were reviewed. He has settled in. He is eating and drinking some. He denies any SI. He was actually able to speak in Mongolian today. No complaints of his swallowing or throat today. No changes were made Medication Compliance: Yes Side effects from medications: No Attending Groups: No Review of Systems Review of Systems No swallowing complaints Yes all other systems are reviewed and are negative Mental Status Exam Mental Status Exam Narrative: In today's visit he is alert, oriented x3. Affect is flat and subdued with depressed mood. Speech is normal. Good eye contact. Affect is appropriate and subdued. Mood is depressed. No signs of psychosis. No overt delusions. Cognitively he is grossly intact. Judgment is generally intact. He denies any active SI. He did admit to having had suicidal ideations because of frustration and discomfort in his throat. Diagnostics Vital Signs (24Hr): Vital Signs - 24 hr 01/28/25 11:05 01/28/25 20:00 01/29/25 08:00 Temperature 98 F 98.4 F 98.4 F Pulse Rate 78 100 98 Respiratory Rate 18 18 Blood Pressure 138/89 122/81 137/103 H Pulse Oximetry 98 99 97 Oxygen Delivery Method Room Air Room Air Room Air BMI result Body Mass Index 24.0 Labs 01/29/25 08:23 Labs: Laboratory Results - last 48 hr 01/29/25 01/29/25 07:41 08:23 Sodium 142 Potassium 4.2 Chloride 106 Carbon Dioxide 25 Anion Gap 15 BUN 7 L Creatinine 0.74 Estim Creat Clear Calc 139.9 Estimated GFR > 60 POC Glucose 100 Random Glucose 102 Calcium 10.3 H D Total Bilirubin 0.2 AST 27 ALT 38 Alkaline Phosphatase 69 Total Protein 8.3 H Albumin 5.0 Medications Medications Current Medications Acetaminophen (Acetaminophen 325 Mg Tablet) 650 mg PO Q6H PRN PRN Reason: Headache/Pain, Scale 1-10 Al Hydroxide/Mg Hydroxide (Magnesium Hydrox/Alum Hydrox 30 Ml Oral.Susp) 30 ml PO Q6H PRN PRN Reason: Heartburn/Nausea Hydroxyzine HCl (Hydroxyzine Hcl 25 Mg Tablet) 25 mg PO Q6H PRN PRN Reason: mild anxiety Magnesium Hydroxide (Milk Of Magnesia 30 Ml Oral.Susp) 30 ml PO DAILY PRN PRN Reason: Constipation Nicotine (Nicotine 21 Mg Patch.Td24) 21 mg TRANSDERMA DAILY PRN PRN Reason: Nicotine Cravings Nicotine Polacrilex (Nicotine Polacrilex 2 Mg Gum) 2 mg BUCCAL Q2H PRN PRN Reason: Nicotine Cravings Trazodone HCl (Trazodone Hcl 50 Mg Tablet) 50 mg PO BEDTIME MRX1 PRN PRN Reason: Insomnia Allergies Allergies Allergy/AdvReac Type Severity Reaction Status Date / Time No Known Allergies Allergy Verified 01/26/25 16:28 Assessment & Plan Assessment & Plan (1) Depression: Status: Acute Code(s): F32.A - Depression, unspecified (2) Dysphagia: Qualifiers: Dysphagia type: oropharyngeal phase Qualified Code(s): R13.12 - Dysphagia, oropharyngeal phase Status: Acute Code(s): R13.10 - Dysphagia, unspecified Plan 39-year-old male with history of previous suicide attempt by laceration of his neck and subsequent discomfort in swallowing with no findings on the swallow study done by speech therapist. He continues to want to see a specialist. He was admitted to our unit for safety and stabilization. Current medications were reviewed and maintained. Consider a GI consult for next week. 01/29: Continue current plans and regimen Reason for continued inpatient stay Substantial Risk for: harm to self Time Spent With Patient Time: Total time managing care of this patient today ____ minutes.
[2025-01-29 20:00] VITALS: BP 141/97; PULSE 119; RESP 16; TEMP 36.9; O2SAT 97
[2025-01-30 07:48] LABS: Glucose, Whole Blood 103 mg/dL (60-115)
[2025-01-30 08:00] VITALS: BP 133/70; PULSE 81; RESP 16; TEMP 37; O2SAT 100
--- NOTE | 2025-01-30 10:06 | HO.PSYCHPN ---
Subjective Subjective Date of Service: 01/30/25 Reason For Visit: depression Interim History: met with patient; discussed with team; reviewed chart; patient interviewed with electronic instructor programmable controllers Inquired about events leading up to this admission. Patient reports that he came to hospital since i had a problem with my throat but agrees at ED, he did say he was suicidal; he says the only reason he had SI was because his throat was hurting so much. However he also says he's been depressed the past several weeks. On inquiry, he explains Because of trouble swallowing he stopped taking medications which made his existing depression worse. Patient said he is still depressed and though does not think he would, is still afraid [he] might cut his throat again.. Patient acknowledged that in September 2024 he tried to cut own throat because at that time he says i was having too much problems in my life... I regret doing it; i went to [facility]. He shares that some of the problems included that he had a stroke and other problems such as feeling depressed. Patient does not know his diagnosis. He denies any AVH or paranoid ideations. Some trouble fully assessing due to language barrier but It does not seem that he has a history of manic type episodes or behaviors. He does not know the names of his medications but gives permission for team, junior copywriter, social worker psychiatric to call his family and providers. dc POC denies SI off zyprexa? off Wellbutrin?? prilosec? Mental Status Exam Mental Status Exam Narrative: Pt is alert and oriented; behavior is isolative and quiet but cooperative on approach, calm; patient is not in distress; dressed in hospital attire, unkempt; mood is described as depressed and affect blunted; eye contact appropriate; Speech with some latency, a little slowed, normal volume; psychomotor retardation present; thought process goal directed, concrete; Thought content is on tx, swallowing problems; otherwise pertinent to relevant topics and without any delusional content, paranoid ideations or grandiosity; positive for intermittent SI; no HI; denies AVH; not sure if internally preoccupied Patients insight and judgment impaired Diagnostics Vital Signs (24Hr): Vital Signs - 24 hr 01/29/25 20:00 Temperature 98.5 F Pulse Rate 119 H Respiratory Rate 16 Blood Pressure 141/97 H Pulse Oximetry 97 Oxygen Delivery Method Room Air BMI result Body Mass Index 24.0 Labs 01/29/25 08:23 Labs: Laboratory Results - last 48 hr 01/29/25 01/29/25 01/30/25 07:41 08:23 07:38 Sodium 142 Potassium 4.2 Chloride 106 Carbon Dioxide 25 Anion Gap 15 BUN 7 L Creatinine 0.74 Estim Creat Clear Calc 139.9 Estimated GFR > 60 POC Glucose 100 103 Random Glucose 102 Calcium 10.3 H D Total Bilirubin 0.2 AST 27 ALT 38 Alkaline Phosphatase 69 Total Protein 8.3 H Albumin 5.0 Medications Medications Current Medications Acetaminophen (Acetaminophen 325 Mg Tablet) 650 mg PO Q6H PRN PRN Reason: Headache/Pain, Scale 1-10 Al Hydroxide/Mg Hydroxide (Magnesium Hydrox/Alum Hydrox 30 Ml Oral.Susp) 30 ml PO Q6H PRN PRN Reason: Heartburn/Nausea Hydroxyzine HCl (Hydroxyzine Hcl 25 Mg Tablet) 25 mg PO Q6H PRN PRN Reason: mild anxiety Magnesium Hydroxide (Milk Of Magnesia 30 Ml Oral.Susp) 30 ml PO DAILY PRN PRN Reason: Constipation Nicotine (Nicotine 21 Mg Patch.Td24) 21 mg TRANSDERMA DAILY PRN PRN Reason: Nicotine Cravings Nicotine Polacrilex (Nicotine Polacrilex 2 Mg Gum) 2 mg BUCCAL Q2H PRN PRN Reason: Nicotine Cravings Trazodone HCl (Trazodone Hcl 50 Mg Tablet) 50 mg PO BEDTIME MRX1 PRN PRN Reason: Insomnia Allergies Allergies Allergy/AdvReac Type Severity Reaction Status Date / Time No Known Allergies Allergy Verified 01/26/25 16:28 Assessment & Plan Assessment & Plan (1) Depression: Status: Acute Code(s): F32.A - Depression, unspecified (2) Dysphagia: Qualifiers: Dysphagia type: oropharyngeal phase Qualified Code(s): R13.12 - Dysphagia, oropharyngeal phase Status: Acute Code(s): R13.10 - Dysphagia, unspecified (3) CVA (cerebral vascular accident): Status: Acute Code(s): I63.9 - Cerebral infarction, unspecified (4) HTN (hypertension): Qualifiers: Hypertension type: primary hypertension Qualified Code(s): I10 - Essential (primary) hypertension Status: Acute Code(s): I10 - Essential (primary) hypertension (5) GERD (gastroesophageal reflux disease): Qualifiers: Esophagitis presence: without esophagitis Qualified Code(s): K21.9 - Gastro-esophageal reflux disease without esophagitis Status: Acute Code(s): K21.9 - Gastro-esophageal reflux disease without esophagitis Plan 39-year-old male with history of previous suicide attempt by laceration of his neck and subsequent discomfort in swallowing with no findings on the swallow study done by speech therapist. He continues to want to see a specialist. He was admitted to our unit for safety and stabilization. Current medications were reviewed and maintained. Consider a GI consult for next week. Hospital course: 01/29: Continue current plans and regimen 01/30 Inquired about events leading up to this admission. Patient reports that he came to hospital since i had a problem with my throat but agrees at ED, he did say he was suicidal; he says the only reason he had SI was because his throat was hurting so much. However he also says he's been depressed the past several weeks. On inquiry, he explains Because of trouble swallowing he stopped taking medications which made his existing depression worse. Patient said he is still depressed and though does not think he would, is still afraid [he] might cut his throat again.. Patient acknowledged that in September 2024 he tried to cut own throat because at that time he says i was having too much problems in my life... I regret doing it; i went to [facility]. He shares that some of the problems included that he had a stroke and other problems such as feeling depressed. Regarding psych history: Patient does not know his diagnosis. He denies any AVH or paranoid ideations. Some trouble fully assessing due to language barrier but It does not seem that he has a history of manic type episodes or behaviors. Denies history of psychiatric admission; denies any drug or alcohol use; endorses that he used alcohol in the past but not for quite some time. He does not know the names of his medications but gives permission for team, junior copywriter, social worker psychiatric to call his family and providers. Regarding questions about his childhood , patient says I do not recall which could either be he does not want to talk about it, or has some kind of impairment, status post stroke? Working Plan: Patient continues to report dysphagia though swallowing eval was reportedly mild. Patient very much wants his throat assessed and this remains a significant source of anxiety for him. He agrees to medication management and getting back on his home medications, deferring to junior copywriter. -patient was not restarted on medications when transferred back to psychiatric unit Restart aspirin 81 mg: Patient has history of stroke Restart atorvastatin 80 mg: Patient has history of stroke, Will restart PPI will restart Wellbutrin ER 150 mg and likely titrate given that patient has continued depression Will restart Zyprexa 5 mg daily; will hold off from restarting the additional Zyprexa 10 mg q.h.s. since not sure what it is for yet Will hold off restarting Lexapro 20 mg for now; patient seems to deny any history of manic type behaviors however for some reason he is also on Zyprexa 15 mg total daily dose Patient was hypertensive prior to coming to the unit because he had been off his antihypertensives 4 weeks, losartan and lisinopril Will hold off restarting lisinopril or losartan since currently blood pressures WNL Will get GI consult to help assess Reach out for collateral PLAN: CV Q 15 minute checks aspirin 81 mg: Patient has history of stroke atorvastatin 80 mg: Patient has history of stroke, Start omeprazole 40 mg daily; patient on pantoprazole 40 mg as an outpatient Hold lisinopril; patient currently normotensive Hold losartan; patient currently normotensive Wellbutrin ER 150 mg and likely titrate given that patient has continued depression Zyprexa 5 mg daily; will hold off from restarting the additional Zyprexa 10 mg q.h.s. since not sure what it is for yet Hold Lexapro 20 mg for now; patient seems to deny any history of manic type behaviors however for some reason he is also on Zyprexa 15 mg total daily dose Will get GI consult to help assess Reach out for collateral Swallow eval: Patient seen for clinical swallow with remote instructor programmable controllers assisting/translating. Patient presents with most aspects of swallow WFL, however describes globus sensation and food getting stuck/closing throat at the level of the esophagus. For further assessment, patient will need GI consult. Would recommend softer diet: Chopped/Advanced (NDD3) continue on thin liquids, larger pills crushed in puree. WHEEL CLEANER to f/u X1 for toleration of diet. RNs on floor advised. Patient educated on: diagnosis, medication risk/benefits, therapeutic strategies and medical condition Informed Consent: understands, does not understand and further education needed Reason for continued inpatient stay Substantial Risk for: inability to function Time Spent With Patient Time: Total time managing care of this patient today ____ minutes.
[2025-01-30 12:20] LABS: Glucose, Whole Blood 100 mg/dL (60-115)
[2025-01-30] MEDS: Atorvastatin Calcium 40 MG TABLET PO (16:34)
[2025-01-30] MEDS: Omeprazole 40 MG CAPSULE.DR PO (16:35)
[2025-01-30] MEDS: Aspirin Enteric Coated 81 MG TABLET.DR PO (16:35)
[2025-01-30 20:00] VITALS: BP 140/82; PULSE 115; RESP 16; TEMP 37.1; O2SAT 98
[2025-01-31 08:00] VITALS: BP 152/98; PULSE 104; RESP 18; TEMP 37; O2SAT 98
[2025-01-31 08:10] LABS: Glucose, Whole Blood 101 mg/dL (60-115)
[2025-01-31] MEDS: Aspirin Enteric Coated 81 MG TABLET.DR PO (08:36)
[2025-01-31] MEDS: OLANZapine 5 MG TABLET PO (08:36)
[2025-01-31] MEDS: buPROPion HCl XL 150 MG TAB.ER.24H PO (08:36)
[2025-01-31] MEDS: Atorvastatin Calcium 40 MG TABLET 80 MG PO (08:36)
[2025-01-31] MEDS: Omeprazole 40 MG CAPSULE.DR PO (08:36)
--- NOTE | 2025-01-31 14:37 | P.PNPSI_ITS ---
Subjective Subjective Date of Service: 01/31/25 Reason For Visit: depression Interim History: Met with patient; discussed with team; patient seen with electronic gelatin plant supervisor Patient discussed in more detail history. He says Last May, when i got stroke friends stopped being helpful; they left...Everything changed after the stroke which is the onset of his depression; prior to this pt was doing well, happy. Not working, lonely, out of a job, and then loss of relationship worsened depression which led up to pt cutting his throat in September. Since then, pt has felt isolated. He says he's been unable to work, feeling physically too weak however alludes to him being too depressed to work. Patient denies any SI at all however he is very worried about his throat issue and is hoping for endoscopy; GI consult pending. Currently he feels that his depression is a little better and says his mood is normal. He agrees to titration of Wellbutrin Mental Status Exam Mental Status Exam Narrative: Pt is alert and oriented; behavior is isolative and quiet but cooperative on approach, calm; patient is not in distress; dressed in hospital attire, unkempt; mood is described as Normal and affect blunted; eye contact appropriate; Speech with some latency, a little slowed, normal volume; psychomotor retardation present; thought process goal directed, concrete; Thought content is on tx, swallowing problems; otherwise pertinent to relevant topics and without any delusional content, paranoid ideations or grandiosity; positive for intermittent SI; no HI; denies AVH; not sure if internally preoccupied Patients insight and judgment impaired Diagnostics Vital Signs (24Hr): Vital Signs - 24 hr 01/30/25 20:00 01/31/25 08:00 Temperature 98.8 F 98.6 F Pulse Rate 115 H 104 H Respiratory Rate 16 18 Blood Pressure 140/82 H 152/98 H Pulse Oximetry 98 98 Oxygen Delivery Method Room Air Room Air BMI result Body Mass Index 24.0 Labs 01/29/25 08:23 Labs: Laboratory Results - last 48 hr 01/30/25 01/30/25 01/31/25 07:38 12:17 08:03 POC Glucose 103 100 101 Medications Medications Current Medications Acetaminophen (Acetaminophen 325 Mg Tablet) 650 mg PO Q6H PRN PRN Reason: Headache/Pain, Scale 1-10 Al Hydroxide/Mg Hydroxide (Magnesium Hydrox/Alum Hydrox 30 Ml Oral.Susp) 30 ml PO Q6H PRN PRN Reason: Heartburn/Nausea Aspirin (Aspirin Enteric Coated 81 Mg Tablet.) 81 mg PO DAILY [facility] Last Admin: 01/31/25 08:36 Dose: 81 mg Atorvastatin Calcium (Atorvastatin Calcium 40 Mg Tablet) 80 mg PO DAILY [facility] Last Admin: 01/31/25 08:36 Dose: 80 mg Bupropion HCl (Bupropion Hcl Xl 300 Mg Tab.Er.24h) 300 mg PO DAILY [facility] Hydroxyzine HCl (Hydroxyzine Hcl 25 Mg Tablet) 25 mg PO Q6H PRN PRN Reason: mild anxiety Magnesium Hydroxide (Milk Of Magnesia 30 Ml Oral.Susp) 30 ml PO DAILY PRN PRN Reason: Constipation Multi-Ingred Cream/Lotion/Oil/Oint (Mineral Oil/Petrolatum,White 106 Gm Tube) 1 appl TOPICAL BID@0900,1400 [facility]; Protocol Nicotine (Nicotine 21 Mg Patch.Td24) 21 mg TRANSDERMA DAILY PRN PRN Reason: Nicotine Cravings Nicotine Polacrilex (Nicotine Polacrilex 2 Mg Gum) 2 mg BUCCAL Q2H PRN PRN Reason: Nicotine Cravings Olanzapine (Olanzapine 5 Mg Tablet) 5 mg PO TID PRN PRN Reason: agitation Olanzapine (Olanzapine 5 Mg Tablet) 5 mg PO DAILY [facility] Last Admin: 01/31/25 08:36 Dose: 5 mg Omeprazole (Omeprazole 40 Mg Capsule.) 40 mg PO DAILY@0630 [facility] Last Admin: 01/31/25 08:36 Dose: 40 mg Trazodone HCl (Trazodone Hcl 50 Mg Tablet) 50 mg PO BEDTIME MRX1 PRN PRN Reason: Insomnia Allergies Allergies Allergy/AdvReac Type Severity Reaction Status Date / Time No Known Allergies Allergy Verified 01/26/25 16:28 Assessment & Plan Assessment & Plan (1) Depression: Status: Acute Code(s): F32.A - Depression, unspecified (2) Dysphagia: Qualifiers: Dysphagia type: oropharyngeal phase Qualified Code(s): R13.12 - Dysphagia, oropharyngeal phase Status: Acute Code(s): R13.10 - Dysphagia, unspecified (3) CVA (cerebral vascular accident): Status: Acute Code(s): I63.9 - Cerebral infarction, unspecified (4) HTN (hypertension): Qualifiers: Hypertension type: primary hypertension Qualified Code(s): I10 - Essential (primary) hypertension Status: Acute Code(s): I10 - Essential (primary) hypertension (5) GERD (gastroesophageal reflux disease): Qualifiers: Esophagitis presence: without esophagitis Qualified Code(s): K21.9 - Gastro-esophageal reflux disease without esophagitis Status: Acute Code(s): K21.9 - Gastro-esophageal reflux disease without esophagitis Plan 39-year-old male with history of previous suicide attempt by laceration of his neck and subsequent discomfort in swallowing with no findings on the swallow study done by speech therapist. He continues to want to see a specialist. He was admitted to our unit for safety and stabilization. Current medications were reviewed and maintained. Consider a GI consult for next week. Hospital course: 01/29: Continue current plans and regimen 01/30 Inquired about events leading up to this admission. Patient reports that he came to hospital since i had a problem with my throat but agrees at ED, he did say he was suicidal; he says the only reason he had SI was because his throat was hurting so much. However he also says he's been depressed the past several weeks. On inquiry, he explains Because of trouble swallowing he stopped taking medications which made his existing depression worse. Patient said he is still depressed and though does not think he would, is still afraid [he] might cut his throat again.. Patient acknowledged that in September 2024 he tried to cut own throat because at that time he says i was having too much problems in my life... I regret doing it; i went to [facility]. He shares that some of the problems included that he had a stroke and other problems such as feeling depressed. Regarding psych history: Patient does not know his diagnosis. He denies any AVH or paranoid ideations. Some trouble fully assessing due to language barrier but It does not seem that he has a history of manic type episodes or behaviors. Denies history of psychiatric admission; denies any drug or alcohol use; endorses that he used alcohol in the past but not for quite some time. He does not know the names of his medications but gives permission for team, teletypewriter operator, manager social work to call his family and providers. Regarding questions about his childhood , patient says I do not recall which could either be he does not want to talk about it, or has some kind of impairment, status post stroke? Working Plan: Patient continues to report dysphagia though swallowing eval was reportedly mild. Patient very much wants his throat assessed and this remains a significant source of anxiety for him. He agrees to medication management and getting back on his home medications, deferring to teletypewriter operator. -patient was not restarted on medications when transferred back to psychiatric unit Restart aspirin 81 mg: Patient has history of stroke Restart atorvastatin 80 mg: Patient has history of stroke, Will restart PPI will restart Wellbutrin ER 150 mg and likely titrate given that patient has continued depression Will restart Zyprexa 5 mg daily; will hold off from restarting the additional Zyprexa 10 mg q.h.s. since not sure what it is for yet Will hold off restarting Lexapro 20 mg for now; patient seems to deny any history of manic type behaviors however for some reason he is also on Zyprexa 15 mg total daily dose Patient was hypertensive prior to coming to the unit because he had been off his antihypertensives 4 weeks, losartan and lisinopril Will hold off restarting lisinopril or losartan since currently blood pressures WNL Will get GI consult to help assess Reach out for collateral Hospital course: 01/31 Patient discussed in more detail history. He says Last May, when i got stroke friends stopped being helpful; they left...Everything changed after the stroke which is the onset of his depression; prior to this pt was doing well, happy. Not working, lonely, out of a job, and then loss of relationship worsened depression which led up to pt cutting his throat in September. Since then, pt has felt isolated. He says he's been unable to work, feeling physically too weak however alludes to him being too depressed to work. Patient denies any SI at all however he is very worried about his throat issue and is hoping for endoscopy; GI consult pending. Currently he feels that his depression is a little better and says his mood is normal. He agrees to titration of Wellbutrin PLAN: CV Q 15 minute checks aspirin 81 mg: Patient has history of stroke atorvastatin 80 mg: Patient has history of stroke, Start omeprazole 40 mg daily; patient on pantoprazole 40 mg as an outpatient Hold lisinopril; patient currently normotensive Hold losartan; patient currently normotensive INCREASE TO Wellbutrin ER 300 mg and likely titrate given that patient has continued depression Zyprexa 5 mg daily; will hold off from restarting the additional Zyprexa 10 mg q.h.s. since not sure what it is for yet Hold Lexapro 20 mg for now; patient seems to deny any history of manic type behaviors however for some reason he is also on Zyprexa 15 mg total daily dose Will get GI consult to help assess Reach out for collateral Swallow eval: Patient seen for clinical swallow with remote gelatin plant supervisor assisting/translating. Patient presents with most aspects of swallow WFL, however describes globus sensation and food getting stuck/closing throat at the level of the esophagus. For further assessment, patient will need GI consult. Would recommend softer diet: Chopped/Advanced (NDD3) continue on thin liquids, larger pills crushed in puree. LABORER PETROLEUM REFINERY to f/u X1 for toleration of diet. RNs on floor advised. Patient educated on: diagnosis, medication risk/benefits and medical condition Informed Consent: understands and further education needed Reason for continued inpatient stay Substantial Risk for: rapid decompensation Time Spent With Patient Time: Total time managing care of this patient today ____ minutes.
[2025-01-31] MEDS: Mineral Oil/Petrolatum,White 106 GM Tube 1 APPL TOPICAL (15:12)
[2025-01-31 20:00] VITALS: BP 133/82; PULSE 99; RESP 16; TEMP 36.9; O2SAT 96
--- NOTE | 2025-02-01 07:08 | PC.NURSE ---
Patient told this repairer typewriter I feel normal today . He denied any depression and is still fixated on having a doctor check his throat.
[2025-02-01 08:00] VITALS: BP 103/55; PULSE 78; RESP 16; TEMP 36.8; O2SAT 97
[2025-02-01] MEDS: Aspirin Enteric Coated 81 MG TABLET.DR PO (08:04)
[2025-02-01] MEDS: OLANZapine 5 MG TABLET PO (08:04)
[2025-02-01] MEDS: buPROPion HCl XL 300 MG TAB.ER.24H PO (08:04)
[2025-02-01] MEDS: Mineral Oil/Petrolatum,White 106 GM Tube 1 APPL TOPICAL (08:05)
[2025-02-01] MEDS: Atorvastatin Calcium 40 MG TABLET 80 MG PO (08:05)
[2025-02-01] MEDS: Omeprazole 40 MG CAPSULE.DR PO (08:05)
--- NOTE | 2025-02-01 18:31 | HO.PSYCHPN ---
Subjective Subjective Date of Service: 02/01/25 Reason For Visit: depression Interim History: Met with patient; discussed with team; discussed with Dr. Guzman Patient reports mood is normal and continues to deny any SI. Agrees to Wellbutrin titration and medication management. Collateral from his sister reports patient had an upper endoscopy that was unremarkable; Dr. Guzman, coal shoveler reports that there was and upper endoscopy and will try to get the records; will likely do barium swallow. Patient's sister reported that prior to his stroke, patient was happy, no depression, no problems Mental Status Exam Mental Status Exam Narrative: Pt is alert and oriented; behavior is isolative and quiet but cooperative on approach, calm; patient is not in distress; dressed in hospital attire, unkempt; mood is described as Normal and affect blunted; eye contact appropriate; Speech with some latency, a little slowed, normal volume; psychomotor retardation present; thought process goal directed, concrete; Thought content is on tx, swallowing problems (though has been eating well and without issue); otherwise pertinent to relevant topics and without any delusional content, paranoid ideations or grandiosity; denies any SI; no HI; denies AVH; does not appear internally preoccupied Patients insight and judgment improved Diagnostics Vital Signs (24Hr): Vital Signs - 24 hr 01/31/25 20:00 02/01/25 08:00 Temperature 98.4 F 98.2 F Pulse Rate 99 78 Respiratory Rate 16 16 Blood Pressure 133/82 103/55 L Pulse Oximetry 96 97 Oxygen Delivery Method Room Air Room Air BMI result Body Mass Index 24.0 Labs 01/29/25 08:23 Labs: Laboratory Results - last 48 hr 01/31/25 08:03 POC Glucose 101 Medications Medications Current Medications Acetaminophen (Acetaminophen 325 Mg Tablet) 650 mg PO Q6H PRN PRN Reason: Headache/Pain, Scale 1-10 Al Hydroxide/Mg Hydroxide (Magnesium Hydrox/Alum Hydrox 30 Ml Oral.Susp) 30 ml PO Q6H PRN PRN Reason: Heartburn/Nausea Aspirin (Aspirin Enteric Coated 81 Mg Tablet.) 81 mg PO DAILY [facility] Last Admin: 02/01/25 08:04 Dose: 81 mg Atorvastatin Calcium (Atorvastatin Calcium 40 Mg Tablet) 80 mg PO DAILY [facility] Last Admin: 02/01/25 08:05 Dose: 80 mg Bupropion HCl (Bupropion Hcl Xl 150 Mg Tab.Er.24h) 450 mg PO DAILY [facility] Hydroxyzine HCl (Hydroxyzine Hcl 25 Mg Tablet) 25 mg PO Q6H PRN PRN Reason: mild anxiety Magnesium Hydroxide (Milk Of Magnesia 30 Ml Oral.Susp) 30 ml PO DAILY PRN PRN Reason: Constipation Multi-Ingred Cream/Lotion/Oil/Oint (Mineral Oil/Petrolatum,White 106 Gm Tube) 1 appl TOPICAL BID@0900,1400 [facility]; Protocol Last Admin: 02/01/25 13:00 Dose: Not Given Nicotine (Nicotine 21 Mg Patch.Td24) 21 mg TRANSDERMA DAILY PRN PRN Reason: Nicotine Cravings Nicotine Polacrilex (Nicotine Polacrilex 2 Mg Gum) 2 mg BUCCAL Q2H PRN PRN Reason: Nicotine Cravings Olanzapine (Olanzapine 5 Mg Tablet) 5 mg PO TID PRN PRN Reason: agitation Olanzapine (Olanzapine 5 Mg Tablet) 5 mg PO DAILY [facility] Last Admin: 02/01/25 08:04 Dose: 5 mg Omeprazole (Omeprazole 40 Mg Capsule.) 40 mg PO DAILY@0630 [facility] Last Admin: 02/01/25 08:05 Dose: 40 mg Trazodone HCl (Trazodone Hcl 50 Mg Tablet) 50 mg PO BEDTIME MRX1 PRN PRN Reason: Insomnia Allergies Allergies Allergy/AdvReac Type Severity Reaction Status Date / Time No Known Allergies Allergy Verified 01/26/25 16:28 Assessment & Plan Assessment & Plan (1) Depression: Status: Acute Code(s): F32.A - Depression, unspecified (2) Dysphagia: Qualifiers: Dysphagia type: oropharyngeal phase Qualified Code(s): R13.12 - Dysphagia, oropharyngeal phase Status: Acute Code(s): R13.10 - Dysphagia, unspecified (3) CVA (cerebral vascular accident): Status: Acute Code(s): I63.9 - Cerebral infarction, unspecified (4) HTN (hypertension): Qualifiers: Hypertension type: primary hypertension Qualified Code(s): I10 - Essential (primary) hypertension Status: Acute Code(s): I10 - Essential (primary) hypertension (5) GERD (gastroesophageal reflux disease): Qualifiers: Esophagitis presence: without esophagitis Qualified Code(s): K21.9 - Gastro-esophageal reflux disease without esophagitis Status: Acute Code(s): K21.9 - Gastro-esophageal reflux disease without esophagitis Plan 39-year-old male with history of previous suicide attempt by laceration of his neck and subsequent discomfort in swallowing with no findings on the swallow study done by speech therapist. He continues to want to see a specialist. He was admitted to our unit for safety and stabilization. Current medications were reviewed and maintained. Consider a GI consult for next week. Hospital course: 01/29: Continue current plans and regimen 01/30 Inquired about events leading up to this admission. Patient reports that he came to hospital since i had a problem with my throat but agrees at ED, he did say he was suicidal; he says the only reason he had SI was because his throat was hurting so much. However he also says he's been depressed the past several weeks. On inquiry, he explains Because of trouble swallowing he stopped taking medications which made his existing depression worse. Patient said he is still depressed and though does not think he would, is still afraid [he] might cut his throat again.. Patient acknowledged that in September 2024 he tried to cut own throat because at that time he says i was having too much problems in my life... I regret doing it; i went to [facility]. He shares that some of the problems included that he had a stroke and other problems such as feeling depressed. Regarding psych history: Patient does not know his diagnosis. He denies any AVH or paranoid ideations. Some trouble fully assessing due to language barrier but It does not seem that he has a history of manic type episodes or behaviors. Denies history of psychiatric admission; denies any drug or alcohol use; endorses that he used alcohol in the past but not for quite some time. He does not know the names of his medications but gives permission for team, com writer, social services coordinator to call his family and providers. Regarding questions about his childhood , patient says I do not recall which could either be he does not want to talk about it, or has some kind of impairment, status post stroke? Working Plan: Patient continues to report dysphagia though swallowing eval was reportedly mild. Patient very much wants his throat assessed and this remains a significant source of anxiety for him. He agrees to medication management and getting back on his home medications, deferring to com writer. -patient was not restarted on medications when transferred back to psychiatric unit Restart aspirin 81 mg: Patient has history of stroke Restart atorvastatin 80 mg: Patient has history of stroke, Will restart PPI will restart Wellbutrin ER 150 mg and likely titrate given that patient has continued depression Will restart Zyprexa 5 mg daily; will hold off from restarting the additional Zyprexa 10 mg q.h.s. since not sure what it is for yet Will hold off restarting Lexapro 20 mg for now; patient seems to deny any history of manic type behaviors however for some reason he is also on Zyprexa 15 mg total daily dose Patient was hypertensive prior to coming to the unit because he had been off his antihypertensives 4 weeks, losartan and lisinopril Will hold off restarting lisinopril or losartan since currently blood pressures WNL Will get GI consult to help assess Reach out for collateral Hospital course: 01/31 Patient discussed in more detail history. He says Last May, when i got stroke friends stopped being helpful; they left...Everything changed after the stroke which is the onset of his depression; prior to this pt was doing well, happy. Not working, lonely, out of a job, and then loss of relationship worsened depression which led up to pt cutting his throat in September. Since then, pt has felt isolated. He says he's been unable to work, feeling physically too weak however alludes to him being too depressed to work. Patient denies any SI at all however he is very worried about his throat issue and is hoping for endoscopy; GI consult pending. Currently he feels that his depression is a little better and says his mood is normal. He agrees to titration of Wellbutrin 02/01 Patient reports mood is normal and continues to deny any SI. Agrees to Wellbutrin titration and medication management. Collateral from his sister reports patient had an upper endoscopy that was unremarkable; Dr. Guzman, coal shoveler reports that there was and upper endoscopy and will try to get the records; will likely do barium swallow. [employer] discussed that prior endoscopy seems to have been unremarkable however patient still seems fixated on getting help with [his] throat patient however also asked to be discharge soon, feeling he is getting ready to go home Patient's sister reported that prior to his stroke, patient was happy, no depression, no problems PLAN: CV Q 15 minute checks aspirin 81 mg: Patient has history of stroke atorvastatin 80 mg: Patient has history of stroke, omeprazole 40 mg daily; patient on pantoprazole 40 mg as an outpatient Hold lisinopril; patient currently normotensive Hold losartan; patient currently normotensive INCREASE TO Wellbutrin ER 450 mg and likely titrate given that patient has continued depression Zyprexa 5 mg qhs; moved to bedtime to help avoid daytime sedation; still not sure that patient needs this Hold Lexapro 20 mg for now; patient seems to deny any history of manic type behaviors however for some reason he is also on Zyprexa 15 mg total daily dose Will get GI consult to help assess Reach out for collateral Swallow eval: Patient seen for clinical swallow with remote shellfish harvester assisting/translating. Patient presents with most aspects of swallow WFL, however describes globus sensation and food getting stuck/closing throat at the level of the esophagus. For further assessment, patient will need GI consult. Would recommend softer diet: Chopped/Advanced (NDD3) continue on thin liquids, larger pills crushed in puree. PRODUCT DEVELOPMENT CONSULTANT to f/u X1 for toleration of diet. RNs on floor advised. Patient educated on: diagnosis, medication risk/benefits and medical condition Informed Consent: understands and further education needed Reason for continued inpatient stay Substantial Risk for: stable for discharge and rapid decompensation Time Spent With Patient Time: Total time managing care of this patient today ____ minutes.
[2025-02-01 20:00] VITALS: BP 130/87; PULSE 90; RESP 16; TEMP 36.9; O2SAT 98
--- NOTE | 2025-02-02 01:29 | CONS_ITS ---
DATE OF SERVICE: 02/01/2025 REFERRING PHYSICIAN: Dr. Verduzco REASON FOR CONSULTATION: Dysphagia. HISTORY OF PRESENT ILLNESS: The patient is a pleasant male who was admitted to the hospital initially for psychiatric reasons on January 26 when he was diagnosed with suicidal ideation. Consultation is requested regarding the patient's dysphagia. There is a history of reported self-induced neck laceration from a suicide attempt 3 months prior to admission. The patient today complains of dysphagia. He says he has a problem with his neck and wants an endoscopy. He has no complaints of hematemesis or melena and denies chronic reflux symptoms. He reports having an upper endoscopy in the past at [facility] in [place]. Those records are not available, but will be obtained. He is unsure of the time. He was evaluated here and had a swallowing evaluation, which was basically unremarkable. Soft diet was recommended. He has had no imaging of the neck and records that are available today. PAST MEDICAL HISTORY: 1. CVA. He is unable to explain the time or details of this. 2. Depression. 3. Hypertension. CURRENT MEDICATIONS: His current medication list is reviewed in the chart. ALLERGIES: THERE ARE NONE REPORTED. FAMILY HISTORY: This is reviewed in the electronic medical record. SOCIAL HISTORY: There is a history of tobacco use. REVIEW OF SYSTEMS: This is not reliably obtainable. PHYSICAL EXAMINATION: GENERAL: Shows a pleasant male, sitting comfortably in bed. He appears alert and oriented. History is obtained with the use of an electronic interpretation device as he does not speak Estonian. VITAL SIGNS: Stable. SKIN: Anicteric. HEENT: Shows no scleral icterus. NECK: Without lymphadenopathy or thyromegaly. There is a scar from an apparent laceration consistent with his history. No masses are present. Swallowing appears normal by palpation and the oropharynx is benign. LUNGS: Clear. HEART: Shows regular rate and rhythm. S1, S2. No murmur. ABDOMEN: Soft without focal masses or tenderness. Bowel sounds are present. No organomegaly is noted. EXTREMITIES: Without edema. LABORATORY DATA: Reviewed. IMPRESSION: Dysphagia. I have recommended further evaluation with barium swallow, although he has no chronic underlying reflux symptoms by his report. His swallowing evaluation records are reviewed. We will obtain his outside records from his previous endoscopy. I do not think endoscopy is necessary based on the information available at this time. I discussed this with him. Thanks for asking me to see him. I will follow him in the hospital as needed. MD MALLY Thompson/JAVIER / [id number]
[2025-02-02] MEDS: Omeprazole 40 MG CAPSULE.DR PO (06:40)
[2025-02-02 07:00] VITALS: BMI 20.8
[2025-02-02 08:00] VITALS: BP 120/76; PULSE 90; RESP 16; TEMP 37.4; O2SAT 98
[2025-02-02] MEDS: Aspirin Enteric Coated 81 MG TABLET.DR PO (08:48)
[2025-02-02] MEDS: OLANZapine 5 MG TABLET PO (08:48)
[2025-02-02] MEDS: Atorvastatin Calcium 40 MG TABLET 80 MG PO (08:49)
[2025-02-02] MEDS: buPROPion HCl XL 150 MG TAB.ER.24H 450 MG PO (08:49)
[2025-02-02] MEDS: Mineral Oil/Petrolatum,White 106 GM Tube 1 APPL TOPICAL (08:52)
[2025-02-02 20:00] VITALS: BP 141/86; PULSE 100; RESP 16; TEMP 37.1; O2SAT 95
[2025-02-03] MEDS: Omeprazole 40 MG CAPSULE.DR PO (07:13)
[2025-02-03 07:55] VITALS: BP 152/94; PULSE 105; RESP 18; TEMP 36.9; O2SAT 97
[2025-02-03] MEDS: Mineral Oil/Petrolatum,White 106 GM Tube 1 APPL TOPICAL (08:19)
[2025-02-03] MEDS: OLANZapine 5 MG TABLET PO (08:20)
[2025-02-03] MEDS: buPROPion HCl XL 150 MG TAB.ER.24H 450 MG PO (08:20)
[2025-02-03] MEDS: Atorvastatin Calcium 40 MG TABLET 80 MG PO (08:20)
[2025-02-03] MEDS: Aspirin Enteric Coated 81 MG TABLET.DR PO (08:20)
--- NOTE | 2025-02-03 09:56 | P.PNPSI_ITS ---
Subjective Subjective Date of Service: 02/02/25 Reason For Visit: depression Interim History: late entry note for pt seen on 02/02/25; discussed with team pt says his mood is normal and no SI but still with depression; focused on wanting endoscopy but otherwise wants to discharge next week. Mental Status Exam Mental Status Exam Narrative: Pt is alert and oriented; behavior is isolative and quiet but cooperative on approach, calm; patient is not in distress; dressed in hospital attire, unkempt; mood is described as Normal and affect blunted; eye contact appropriate; Speech with some latency, a little slowed, normal volume; psychomotor retardation present; thought process goal directed, concrete; Thought content is on tx, swallowing problems (though has been eating well and without issue); otherwise pertinent to relevant topics and without any delusional content, paranoid ideations or grandiosity; denies any SI; no HI; denies AVH; does not appear internally preoccupied Patients insight and judgment fair. Diagnostics Vital Signs (24Hr): Vital Signs - 24 hr 02/02/25 20:00 02/03/25 07:55 Temperature 98.7 F 98.5 F Pulse Rate 100 105 H Respiratory Rate 16 18 Blood Pressure 141/86 H 152/94 H Pulse Oximetry 95 97 Oxygen Delivery Method Room Air Room Air BMI result Body Mass Index 20.8 Labs 01/29/25 08:23 Medications Medications Current Medications Acetaminophen (Acetaminophen 325 Mg Tablet) 650 mg PO Q6H PRN PRN Reason: Headache/Pain, Scale 1-10 Al Hydroxide/Mg Hydroxide (Magnesium Hydrox/Alum Hydrox 30 Ml Oral.Susp) 30 ml PO Q6H PRN PRN Reason: Heartburn/Nausea Aspirin (Aspirin Enteric Coated 81 Mg Tablet.Dr) 81 mg PO DAILY [facility] Last Admin: 02/03/25 08:20 Dose: 81 mg Atorvastatin Calcium (Atorvastatin Calcium 40 Mg Tablet) 80 mg PO DAILY [facility] Last Admin: 02/03/25 08:20 Dose: 80 mg Bupropion HCl (Bupropion Hcl Xl 150 Mg Tab.Er.24h) 450 mg PO DAILY [facility] Last Admin: 02/03/25 08:20 Dose: 450 mg Hydroxyzine HCl (Hydroxyzine Hcl 25 Mg Tablet) 25 mg PO Q6H PRN PRN Reason: mild anxiety Magnesium Hydroxide (Milk Of Magnesia 30 Ml Oral.Susp) 30 ml PO DAILY PRN PRN Reason: Constipation Multi-Ingred Cream/Lotion/Oil/Oint (Mineral Oil/Petrolatum,White 106 Gm Tube) 1 appl TOPICAL BID@0900,1400 [facility]; Protocol Last Admin: 02/03/25 08:19 Dose: 1 appl Nicotine (Nicotine 21 Mg Patch.Td24) 21 mg TRANSDERMA DAILY PRN PRN Reason: Nicotine Cravings Nicotine Polacrilex (Nicotine Polacrilex 2 Mg Gum) 2 mg BUCCAL Q2H PRN PRN Reason: Nicotine Cravings Olanzapine (Olanzapine 5 Mg Tablet) 5 mg PO TID PRN PRN Reason: agitation Olanzapine (Olanzapine 5 Mg Tablet) 5 mg PO DAILY [facility] Last Admin: 02/03/25 08:20 Dose: 5 mg Omeprazole (Omeprazole 40 Mg Capsule.Dr) 40 mg PO DAILY@0630 [facility] Last Admin: 02/03/25 07:13 Dose: 40 mg Trazodone HCl (Trazodone Hcl 50 Mg Tablet) 50 mg PO BEDTIME MRX1 PRN PRN Reason: Insomnia Allergies Allergies Allergy/AdvReac Type Severity Reaction Status Date / Time No Known Allergies Allergy Verified 01/26/25 16:28 Assessment & Plan Assessment & Plan (1) Depression: Status: Acute Code(s): F32.A - Depression, unspecified (2) Dysphagia: Qualifiers: Dysphagia type: oropharyngeal phase Qualified Code(s): R13.12 - Dysphagia, oropharyngeal phase Status: Acute Code(s): R13.10 - Dysphagia, unspecified (3) CVA (cerebral vascular accident): Status: Acute Code(s): I63.9 - Cerebral infarction, unspecified (4) HTN (hypertension): Qualifiers: Hypertension type: primary hypertension Qualified Code(s): I10 - Essential (primary) hypertension Status: Resolved Code(s): I10 - Essential (primary) hypertension (5) GERD (gastroesophageal reflux disease): Qualifiers: Esophagitis presence: without esophagitis Qualified Code(s): K21.9 - Gastro-esophageal reflux disease without esophagitis Status: Acute Code(s): K21.9 - Gastro-esophageal reflux disease without esophagitis Plan 39-year-old male with history of previous suicide attempt by laceration of his neck and subsequent discomfort in swallowing with no findings on the swallow study done by speech therapist. He continues to want to see a specialist. He was admitted to our unit for safety and stabilization. Current medications were reviewed and maintained. Consider a GI consult for next week. Hospital course: 01/29: Continue current plans and regimen 01/30 Inquired about events leading up to this admission. Patient reports that he came to hospital since i had a problem with my throat but agrees at ED, he did say he was suicidal; he says the only reason he had SI was because his throat was hurting so much. However he also says he's been depressed the past several weeks. On inquiry, he explains Because of trouble swallowing he stopped taking medications which made his existing depression worse. Patient said he is still depressed and though does not think he would, is still afraid [he] might cut his throat again.. Patient acknowledged that in September 2024 he tried to cut own throat because at that time he says i was having too much problems in my life... I regret doing it; i went to [facility]. He shares that some of the problems included that he had a stroke and other problems such as feeling depressed. Regarding psych history: Patient does not know his diagnosis. He denies any AVH or paranoid ideations. Some trouble fully assessing due to language barrier but It does not seem that he has a history of manic type episodes or behaviors. Denies history of psychiatric admission; denies any drug or alcohol use; endorses that he used alcohol in the past but not for quite some time. He does not know the names of his medications but gives permission for team, commercial lines underwriter, social media project manager to call his family and providers. Regarding questions about his childhood , patient says I do not recall which could either be he does not want to talk about it, or has some kind of impairment, status post stroke? Working Plan: Patient continues to report dysphagia though swallowing eval was reportedly mild. Patient very much wants his throat assessed and this remains a significant source of anxiety for him. He agrees to medication management and getting back on his home medications, deferring to commercial lines underwriter. -patient was not restarted on medications when transferred back to psychiatric unit Restart aspirin 81 mg: Patient has history of stroke Restart atorvastatin 80 mg: Patient has history of stroke, Will restart PPI will restart Wellbutrin ER 150 mg and likely titrate given that patient has continued depression Will restart Zyprexa 5 mg daily; will hold off from restarting the additional Zyprexa 10 mg q.h.s. since not sure what it is for yet Will hold off restarting Lexapro 20 mg for now; patient seems to deny any history of manic type behaviors however for some reason he is also on Zyprexa 15 mg total daily dose Patient was hypertensive prior to coming to the unit because he had been off his antihypertensives 4 weeks, losartan and lisinopril Will hold off restarting lisinopril or losartan since currently blood pressures WNL Will get GI consult to help assess Reach out for collateral Hospital course: 01/31 Patient discussed in more detail history. He says Last May, when i got stroke friends stopped being helpful; they left...Everything changed after the stroke which is the onset of his depression; prior to this pt was doing well, happy. Not working, lonely, out of a job, and then loss of relationship worsened depression which led up to pt cutting his throat in September. Since then, pt has felt isolated. He says he's been unable to work, feeling physically too weak however alludes to him being too depressed to work. Patient denies any SI at all however he is very worried about his throat issue and is hoping for endoscopy; GI consult pending. Currently he feels that his depression is a little better and says his mood is normal. He agrees to titration of Wellbutrin 02/01 Patient reports mood is normal and continues to deny any SI. Agrees to Wellbutrin titration and medication management. Collateral from his sister reports patient had an upper endoscopy that was unremarkable; Dr. Guzman, mash grinder reports that there was and upper endoscopy and will try to get the records; will likely do barium swallow. Anatomical Embalmer discussed that prior endoscopy seems to have been unremarkable however patient still seems fixated on getting help with [his] throat patient however also asked to be discharge soon, feeling he is getting ready to go home Patient's sister reported that prior to his stroke, patient was happy, no depression, no problems 02/02 pt says his mood is normal and no SI but still with depression; focused on wanting endoscopy but otherwise wants to discharge next week. PLAN: CV Q 15 minute checks aspirin 81 mg: Patient has history of stroke atorvastatin 80 mg: Patient has history of stroke, omeprazole 40 mg daily; patient on pantoprazole 40 mg as an outpatient Hold lisinopril; patient currently normotensive Hold losartan; patient currently normotensive INCREASE TO Wellbutrin ER 450 mg and likely titrate given that patient has continued depression Zyprexa 5 mg qhs; moved to bedtime to help avoid daytime sedation; still not sure that patient needs this Hold Lexapro 20 mg for now; patient seems to deny any history of manic type behaviors however for some reason he is also on Zyprexa 15 mg total daily dose Will get GI consult to help assess Reach out for collateral Swallow eval: Patient seen for clinical swallow with remote diplomatic interpreter/translator assisting/translating. Patient presents with most aspects of swallow WFL, however describes globus sensation and food getting stuck/closing throat at the level of the esophagus. For further assessment, patient will need GI consult. Would recommend softer diet: Chopped/Advanced (NDD3) continue on thin liquids, larger pills crushed in puree. DREDGE PUMP OPERATOR to f/u X1 for toleration of diet. RNs on floor advised. Patient educated on: diagnosis, medication risk/benefits and medical condition Informed Consent: understands Reason for continued inpatient stay Substantial Risk for: stable for discharge Time Spent With Patient Time: Total time managing care of this patient today ____ minutes.
--- NOTE | 2025-02-03 09:56 | P.PNPSI_ITS ---
Subjective Subjective Date of Service: 02/03/25 Reason For Visit: depression Interim History: met with pt; discussed with team; electronic interp Not sure what he thinks about swallowing; sometimes says no problems, other times says he does. He denies pain w/ swallowing and asks for regular meals. Pt says he he had an upper Endoscopy this past November and that it was good but he thinks something has changed with his throat since then....yet, says that even then, after endoscopy was reported to him he still had trouble swallowing. Regarding mood says his mood is a little bit better...and continues to deny any SI. He agrees to start Zoloft to help w/ depression. Mental Status Exam Mental Status Exam Narrative: Pt is alert and oriented; behavior is isolative and quiet but cooperative on approach, calm; patient is not in distress; dressed in hospital attire, unkempt; mood is described as little better and affect blunted; eye contact appropriate; Speech with some latency, a little slowed, normal volume; psychomotor retardation present; thought process goal directed, concrete; Thought content is on tx, swallowing problems (though has been eating well and without issue); otherwise pertinent to relevant topics and without any delusional content, paranoid ideations or grandiosity; denies any SI; no HI; denies AVH; does not appear internally preoccupied Patients insight and judgment fair. Diagnostics Vital Signs (24Hr): Vital Signs - 24 hr 02/02/25 20:00 02/03/25 07:55 Temperature 98.7 F 98.5 F Pulse Rate 100 105 H Respiratory Rate 16 18 Blood Pressure 141/86 H 152/94 H Pulse Oximetry 95 97 Oxygen Delivery Method Room Air Room Air BMI result Body Mass Index 20.8 Labs 01/29/25 08:23 Medications Medications Current Medications Acetaminophen (Acetaminophen 325 Mg Tablet) 650 mg PO Q6H PRN PRN Reason: Headache/Pain, Scale 1-10 Al Hydroxide/Mg Hydroxide (Magnesium Hydrox/Alum Hydrox 30 Ml Oral.Susp) 30 ml PO Q6H PRN PRN Reason: Heartburn/Nausea Aspirin (Aspirin Enteric Coated 81 Mg Tablet.) 81 mg PO DAILY [facility] Last Admin: 02/03/25 08:20 Dose: 81 mg Atorvastatin Calcium (Atorvastatin Calcium 40 Mg Tablet) 80 mg PO DAILY [facility] Last Admin: 02/03/25 08:20 Dose: 80 mg Bupropion HCl (Bupropion Hcl Xl 150 Mg Tab.Er.24h) 450 mg PO DAILY [facility] Last Admin: 02/03/25 08:20 Dose: 450 mg Hydroxyzine HCl (Hydroxyzine Hcl 25 Mg Tablet) 25 mg PO Q6H PRN PRN Reason: mild anxiety Magnesium Hydroxide (Milk Of Magnesia 30 Ml Oral.Susp) 30 ml PO DAILY PRN PRN Reason: Constipation Multi-Ingred Cream/Lotion/Oil/Oint (Mineral Oil/Petrolatum,White 106 Gm Tube) 1 appl TOPICAL BID@0900,1400 [facility]; Protocol Last Admin: 02/03/25 08:19 Dose: 1 appl Nicotine (Nicotine 21 Mg Patch.Td24) 21 mg TRANSDERMA DAILY PRN PRN Reason: Nicotine Cravings Nicotine Polacrilex (Nicotine Polacrilex 2 Mg Gum) 2 mg BUCCAL Q2H PRN PRN Reason: Nicotine Cravings Olanzapine (Olanzapine 5 Mg Tablet) 5 mg PO TID PRN PRN Reason: agitation Olanzapine (Olanzapine 5 Mg Tablet) 5 mg PO DAILY [facility] Last Admin: 02/03/25 08:20 Dose: 5 mg Omeprazole (Omeprazole 40 Mg Capsule.Dr) 40 mg PO DAILY@0630 [facility] Last Admin: 02/03/25 07:13 Dose: 40 mg Trazodone HCl (Trazodone Hcl 50 Mg Tablet) 50 mg PO BEDTIME MRX1 PRN PRN Reason: Insomnia Allergies Allergies Allergy/AdvReac Type Severity Reaction Status Date / Time No Known Allergies Allergy Verified 01/26/25 16:28 Assessment & Plan Assessment & Plan (1) Depression: Status: Acute Code(s): F32.A - Depression, unspecified (2) Dysphagia: Qualifiers: Dysphagia type: oropharyngeal phase Qualified Code(s): R13.12 - Dysphagia, oropharyngeal phase Status: Acute Code(s): R13.10 - Dysphagia, unspecified (3) CVA (cerebral vascular accident): Status: Acute Code(s): I63.9 - Cerebral infarction, unspecified (4) HTN (hypertension): Qualifiers: Hypertension type: primary hypertension Qualified Code(s): I10 - Essential (primary) hypertension Status: Resolved Code(s): I10 - Essential (primary) hypertension (5) GERD (gastroesophageal reflux disease): Qualifiers: Esophagitis presence: without esophagitis Qualified Code(s): K21.9 - Gastro-esophageal reflux disease without esophagitis Status: Acute Code(s): K21.9 - Gastro-esophageal reflux disease without esophagitis Plan 39-year-old male with history of previous suicide attempt by laceration of his neck and subsequent discomfort in swallowing with no findings on the swallow study done by speech therapist. He continues to want to see a specialist. He was admitted to our unit for safety and stabilization. Current medications were reviewed and maintained. Consider a GI consult for next week. Hospital course: 01/29: Continue current plans and regimen 01/30 Inquired about events leading up to this admission. Patient reports that he came to hospital since i had a problem with my throat but agrees at ED, he did say he was suicidal; he says the only reason he had SI was because his throat was hurting so much. However he also says he's been depressed the past several weeks. On inquiry, he explains Because of trouble swallowing he stopped taking medications which made his existing depression worse. Patient said he is still depressed and though does not think he would, is still afraid [he] might cut his throat again.. Patient acknowledged that in September 2024 he tried to cut own throat because at that time he says i was having too much problems in my life... I regret doing it; i went to [facility]. He shares that some of the problems included that he had a stroke and other problems such as feeling depressed. Regarding psych history: Patient does not know his diagnosis. He denies any AVH or paranoid ideations. Some trouble fully assessing due to language barrier but It does not seem that he has a history of manic type episodes or behaviors. Denies history of psychiatric admission; denies any drug or alcohol use; endorses that he used alcohol in the past but not for quite some time. He does not know the names of his medications but gives permission for team, account underwriter, healthcare social worker to call his family and providers. Regarding questions about his childhood , patient says I do not recall which could either be he does not want to talk about it, or has some kind of impairment, status post stroke? Working Plan: Patient continues to report dysphagia though swallowing eval was reportedly mild. Patient very much wants his throat assessed and this remains a significant source of anxiety for him. He agrees to medication management and getting back on his home medications, deferring to account underwriter. -patient was not restarted on medications when transferred back to psychiatric unit Restart aspirin 81 mg: Patient has history of stroke Restart atorvastatin 80 mg: Patient has history of stroke, Will restart PPI will restart Wellbutrin ER 150 mg and likely titrate given that patient has continued depression Will restart Zyprexa 5 mg daily; will hold off from restarting the additional Zyprexa 10 mg q.h.s. since not sure what it is for yet Will hold off restarting Lexapro 20 mg for now; patient seems to deny any history of manic type behaviors however for some reason he is also on Zyprexa 15 mg total daily dose Patient was hypertensive prior to coming to the unit because he had been off his antihypertensives 4 weeks, losartan and lisinopril Will hold off restarting lisinopril or losartan since currently blood pressures WNL Will get GI consult to help assess Reach out for collateral Hospital course: 01/31 Patient discussed in more detail history. He says Last May, when i got stroke friends stopped being helpful; they left...Everything changed after the stroke which is the onset of his depression; prior to this pt was doing well, happy. Not working, lonely, out of a job, and then loss of relationship worsened depression which led up to pt cutting his throat in September. Since then, pt has felt isolated. He says he's been unable to work, feeling physically too weak however alludes to him being too depressed to work. Patient denies any SI at all however he is very worried about his throat issue and is hoping for endoscopy; GI consult pending. Currently he feels that his depression is a little better and says his mood is normal. He agrees to titration of Wellbutrin 02/01 Patient reports mood is normal and continues to deny any SI. Agrees to Wellbutrin titration and medication management. Collateral from his sister reports patient had an upper endoscopy that was unremarkable; Dr. Guzman, ceramic painter reports that there was and upper endoscopy and will try to get the records; will likely do barium swallow. Folder Machine Adjuster discussed that prior endoscopy seems to have been unremarkable however patient still seems fixated on getting help with [his] throat patient however also asked to be discharge soon, feeling he is getting ready to go home Patient's sister reported that prior to his stroke, patient was happy, no depression, no problems 02/03 pt says his mood is normal and no SI but still with depression; focused on wanting endoscopy but otherwise wants to discharge next week. -starting zoloft with which pt agrees (chosen since least likely to cause htn) PLAN: CV Q 15 minute checks start zoloft aspirin 81 mg: Patient has history of stroke atorvastatin 80 mg: Patient has history of stroke, omeprazole 40 mg daily; patient on pantoprazole 40 mg as an outpatient Hold lisinopril; patient currently normotensive Hold losartan; patient currently normotensive INCREASE TO Wellbutrin ER 450 mg and likely titrate given that patient has continued depression Zyprexa 5 mg qhs; moved to bedtime to help avoid daytime sedation; still not sure that patient needs this Hold Lexapro 20 mg for now; patient seems to deny any history of manic type behaviors however for some reason he is also on Zyprexa 15 mg total daily dose Will get GI consult to help assess Reach out for collateral Swallow eval: Patient seen for clinical swallow with remote supervisor aircraft maintenance assisting/translating. Patient presents with most aspects of swallow WFL, however describes globus sensation and food getting stuck/closing throat at the level of the esophagus. For further assessment, patient will need GI consult. Would recommend softer diet: Chopped/Advanced (NDD3) continue on thin liquids, larger pills crushed in puree. REHABILITATION INSPECTOR to f/u X1 for toleration of diet. RNs on floor advised. Patient educated on: diagnosis, medication risk/benefits and medical condition Informed Consent: understands Reason for continued inpatient stay Substantial Risk for: stable for discharge Time Spent With Patient Time: Total time managing care of this patient today ____ minutes.
[2025-02-03 20:00] VITALS: BP 125/79; PULSE 102; TEMP 36.8; O2SAT 96
[2025-02-04] MEDS: Omeprazole 40 MG CAPSULE.DR PO (06:52)
[2025-02-04 07:43] VITALS: BP 142/98; PULSE 96; RESP 18; TEMP 36.9; O2SAT 96
[2025-02-04] MEDS: OLANZapine 5 MG TABLET PO (08:19)
[2025-02-04] MEDS: Aspirin Enteric Coated 81 MG TABLET.DR PO (08:19)
[2025-02-04] MEDS: Atorvastatin Calcium 40 MG TABLET 80 MG PO (08:19)
[2025-02-04] MEDS: buPROPion HCl XL 150 MG TAB.ER.24H 450 MG PO (08:20)
--- NOTE | 2025-02-04 09:35 | P.PNPSI_ITS ---
Subjective Subjective Date of Service: 02/04/25 Reason For Visit: depression Diagnostics Vital Signs (24Hr): Vital Signs - 24 hr 02/03/25 20:00 02/04/25 07:43 Temperature 98.2 F 98.4 F Pulse Rate 102 H 96 Respiratory Rate 18 Blood Pressure 125/79 142/98 H Pulse Oximetry 96 96 Oxygen Delivery Method Room Air Room Air BMI result Body Mass Index 20.8 Labs 01/29/25 08:23 Medications Medications Current Medications Acetaminophen (Acetaminophen 325 Mg Tablet) 650 mg PO Q6H PRN PRN Reason: Headache/Pain, Scale 1-10 Al Hydroxide/Mg Hydroxide (Magnesium Hydrox/Alum Hydrox 30 Ml Oral.Susp) 30 ml PO Q6H PRN PRN Reason: Heartburn/Nausea Aspirin (Aspirin Enteric Coated 81 Mg Tablet.) 81 mg PO DAILY [facility] Last Admin: 02/04/25 08:19 Dose: 81 mg Atorvastatin Calcium (Atorvastatin Calcium 40 Mg Tablet) 80 mg PO DAILY [facility] Last Admin: 02/04/25 08:19 Dose: 80 mg Bupropion HCl (Bupropion Hcl Xl 150 Mg Tab.Er.24h) 450 mg PO DAILY [facility] Last Admin: 02/04/25 08:20 Dose: 450 mg Hydroxyzine HCl (Hydroxyzine Hcl 25 Mg Tablet) 25 mg PO Q6H PRN PRN Reason: mild anxiety Magnesium Hydroxide (Milk Of Magnesia 30 Ml Oral.Susp) 30 ml PO DAILY PRN PRN Reason: Constipation Multi-Ingred Cream/Lotion/Oil/Oint (Mineral Oil/Petrolatum,White 106 Gm Tube) 1 appl TOPICAL BID@0900,1400 [facility]; Protocol Last Admin: 02/04/25 08:21 Dose: Not Given Nicotine (Nicotine 21 Mg Patch.Td24) 21 mg TRANSDERMA DAILY PRN PRN Reason: Nicotine Cravings Nicotine Polacrilex (Nicotine Polacrilex 2 Mg Gum) 2 mg BUCCAL Q2H PRN PRN Reason: Nicotine Cravings Olanzapine (Olanzapine 5 Mg Tablet) 5 mg PO TID PRN PRN Reason: agitation Olanzapine (Olanzapine 5 Mg Tablet) 5 mg PO DAILY [facility] Last Admin: 02/04/25 08:19 Dose: 5 mg Omeprazole (Omeprazole 40 Mg Capsule.) 40 mg PO DAILY@0630 [facility] Last Admin: 02/04/25 06:52 Dose: 40 mg Trazodone HCl (Trazodone Hcl 50 Mg Tablet) 50 mg PO BEDTIME MRX1 PRN PRN Reason: Insomnia Allergies Allergies Allergy/AdvReac Type Severity Reaction Status Date / Time No Known Allergies Allergy Verified 01/26/25 16:28 Assessment & Plan Assessment & Plan (1) Depression: Status: Acute Code(s): F32.A - Depression, unspecified (2) Dysphagia: Qualifiers: Dysphagia type: oropharyngeal phase Qualified Code(s): R13.12 - Dysphagia, oropharyngeal phase Status: Acute Code(s): R13.10 - Dysphagia, unspecified (3) CVA (cerebral vascular accident): Status: Acute Code(s): I63.9 - Cerebral infarction, unspecified (4) HTN (hypertension): Qualifiers: Hypertension type: primary hypertension Qualified Code(s): I10 - Essential (primary) hypertension Status: Resolved Code(s): I10 - Essential (primary) hypertension (5) GERD (gastroesophageal reflux disease): Qualifiers: Esophagitis presence: without esophagitis Qualified Code(s): K21.9 - Gastro-esophageal reflux disease without esophagitis Status: Acute Code(s): K21.9 - Gastro-esophageal reflux disease without esophagitis Plan 39-year-old male with history of previous suicide attempt by laceration of his neck and subsequent discomfort in swallowing with no findings on the swallow study done by speech therapist. He continues to want to see a specialist. He was admitted to our unit for safety and stabilization. Current medications were reviewed and maintained. Consider a GI consult for next week. Hospital course: 01/29: Continue current plans and regimen 01/30 Inquired about events leading up to this admission. Patient reports that he came to hospital since i had a problem with my throat but agrees at ED, he did say he was suicidal; he says the only reason he had SI was because his throat was hurting so much. However he also says he's been depressed the past several weeks. On inquiry, he explains Because of trouble swallowing he stopped taking medications which made his existing depression worse. Patient said he is still depressed and though does not think he would, is still afraid [he] might cut his throat again.. Patient acknowledged that in September 2024 he tried to cut own throat because at that time he says i was having too much problems in my life... I regret doing it; i went to [facility]. He shares that some of the problems included that he had a stroke and other problems such as feeling depressed. Regarding psych history: Patient does not know his diagnosis. He denies any AVH or paranoid ideations. Some trouble fully assessing due to language barrier but It does not seem that he has a history of manic type episodes or behaviors. Denies history of psychiatric admission; denies any drug or alcohol use; endorses that he used alcohol in the past but not for quite some time. He does not know the names of his medications but gives permission for team, life insurance underwriter, social director to call his family and providers. Regarding questions about his childhood , patient says I do not recall which could either be he does not want to talk about it, or has some kind of impairment, status post stroke? Working Plan: Patient continues to report dysphagia though swallowing eval was reportedly mild. Patient very much wants his throat assessed and this remains a significant source of anxiety for him. He agrees to medication management and getting back on his home medications, deferring to life insurance underwriter. -patient was not restarted on medications when transferred back to psychiatric unit Restart aspirin 81 mg: Patient has history of stroke Restart atorvastatin 80 mg: Patient has history of stroke, Will restart PPI will restart Wellbutrin ER 150 mg and likely titrate given that patient has continued depression Will restart Zyprexa 5 mg daily; will hold off from restarting the additional Zyprexa 10 mg q.h.s. since not sure what it is for yet Will hold off restarting Lexapro 20 mg for now; patient seems to deny any history of manic type behaviors however for some reason he is also on Zyprexa 15 mg total daily dose Patient was hypertensive prior to coming to the unit because he had been off his antihypertensives 4 weeks, losartan and lisinopril Will hold off restarting lisinopril or losartan since currently blood pressures WNL Will get GI consult to help assess Reach out for collateral Hospital course: 01/31 Patient discussed in more detail history. He says Last May, when i got stroke friends stopped being helpful; they left...Everything changed after the stroke which is the onset of his depression; prior to this pt was doing well, happy. Not working, lonely, out of a job, and then loss of relationship worsened depression which led up to pt cutting his throat in September. Since then, pt has felt isolated. He says he's been unable to work, feeling physically too weak however alludes to him being too depressed to work. Patient denies any SI at all however he is very worried about his throat issue and is hoping for endoscopy; GI consult pending. Currently he feels that his depression is a little better and says his mood is normal. He agrees to titration of Wellbutrin 02/01 Patient reports mood is normal and continues to deny any SI. Agrees to Wellbutrin titration and medication management. Collateral from his sister reports patient had an upper endoscopy that was unremarkable; Dr. Guzman, solutions executive cloud sales reports that there was and upper endoscopy and will try to get the records; will likely do barium swallow. Machine Or Machinery Mechanic discussed that prior endoscopy seems to have been unremarkable however patient still seems fixated on getting help with [his] throat patient however also asked to be discharge soon, feeling he is getting ready to go home Patient's sister reported that prior to his stroke, patient was happy, no depression, no problems 02/03 pt says his mood is normal and no SI but still with depression; focused on wanting endoscopy but otherwise wants to discharge next week. -starting zoloft with which pt agrees (chosen since least likely to cause htn) PLAN: CV Q 15 minute checks start zoloft aspirin 81 mg: Patient has history of stroke atorvastatin 80 mg: Patient has history of stroke, omeprazole 40 mg daily; patient on pantoprazole 40 mg as an outpatient Hold lisinopril; patient currently normotensive Hold losartan; patient currently normotensive INCREASE TO Wellbutrin ER 450 mg and likely titrate given that patient has continued depression Zyprexa 5 mg qhs; moved to bedtime to help avoid daytime sedation; still not sure that patient needs this Hold Lexapro 20 mg for now; patient seems to deny any history of manic type behaviors however for some reason he is also on Zyprexa 15 mg total daily dose Will get GI consult to help assess Reach out for collateral Swallow eval: Patient seen for clinical swallow with remote welding teacher assisting/translating. Patient presents with most aspects of swallow WFL, however describes globus sensation and food getting stuck/closing throat at the level of the esophagus. For further assessment, patient will need GI consult. Would recommend softer diet: Chopped/Advanced (NDD3) continue on thin liquids, larger pills crushed in puree. PROGRAM MANAGER to f/u X1 for toleration of diet. RNs on floor advised. Time Spent With Patient Time: Total time managing care of this patient today ____ minutes.
[2025-02-04 19:57] VITALS: BP 134/92; PULSE 104; RESP 15; TEMP 36.8; O2SAT 96
[2025-02-05] VITALS (7 sets, daily range): BP systolic 130–195; BP diastolic 84–126; PULSE 98–121; RESP 15–20; TEMP 36.4–36.9; O2SAT 98–99
[2025-02-05] MEDS: Omeprazole 40 MG CAPSULE.DR PO (06:50)
[2025-02-05] MEDS: OLANZapine 5 MG TABLET PO (08:03)
[2025-02-05] MEDS: buPROPion HCl XL 150 MG TAB.ER.24H 450 MG PO (08:03)
[2025-02-05] MEDS: Atorvastatin Calcium 40 MG TABLET 80 MG PO (08:03)
[2025-02-05] MEDS: Aspirin Enteric Coated 81 MG TABLET.DR PO (08:03)
[2025-02-05] MEDS: hydrOXYzine HCL 25 MG TABLET PO ×2 (08:03→20:15)
[2025-02-05] MEDS: lisinopriL 5 MG TABLET PO (08:53)
[2025-02-05] MEDS: hydrALAZINE HCl 10 MG TABLET PO (09:01)
--- NOTE | 2025-02-05 15:59 | HO.PSYCHPN ---
Subjective Subjective Date of Service: 02/05/25 Reason For Visit: depression Diagnostics Vital Signs (24Hr): Vital Signs - 24 hr 02/04/25 19:57 02/05/25 07:20 02/05/25 08:43 Temperature 98.2 F 97.5 F Pulse Rate 104 H 109 H 113 H Respiratory Rate 15 20 Blood Pressure 134/92 H 174/120 H 195/126 H Pulse Oximetry 96 98 Oxygen Delivery Method Room Air 02/05/25 09:40 02/05/25 11:50 Temperature Pulse Rate 98 120 H Respiratory Rate Blood Pressure 158/102 H 137/84 Pulse Oximetry Oxygen Delivery Method BMI result Body Mass Index 20.8 Labs 01/29/25 08:23 Medications Medications Current Medications Acetaminophen (Acetaminophen 325 Mg Tablet) 650 mg PO Q6H PRN PRN Reason: Headache/Pain, Scale 1-10 Al Hydroxide/Mg Hydroxide (Magnesium Hydrox/Alum Hydrox 30 Ml Oral.Susp) 30 ml PO Q6H PRN PRN Reason: Heartburn/Nausea Aspirin (Aspirin Enteric Coated 81 Mg Tablet.Dr) 81 mg PO DAILY [facility] Last Admin: 02/05/25 08:03 Dose: 81 mg Atorvastatin Calcium (Atorvastatin Calcium 40 Mg Tablet) 80 mg PO DAILY [facility] Last Admin: 02/05/25 08:03 Dose: 80 mg Bupropion HCl (Bupropion Hcl Xl 150 Mg Tab.Er.24h) 450 mg PO DAILY [facility] Last Admin: 02/05/25 08:03 Dose: 450 mg Hydroxyzine HCl (Hydroxyzine Hcl 25 Mg Tablet) 25 mg PO Q6H PRN PRN Reason: mild anxiety Last Admin: 02/05/25 08:03 Dose: 25 mg Lisinopril (Lisinopril 10 Mg Tablet) 10 mg PO DAILY [facility]; Protocol Magnesium Hydroxide (Milk Of Magnesia 30 Ml Oral.Susp) 30 ml PO DAILY PRN PRN Reason: Constipation Multi-Ingred Cream/Lotion/Oil/Oint (Mineral Oil/Petrolatum,White 106 Gm Tube) 1 appl TOPICAL BID@0900,1400 [facility]; Protocol Last Admin: 02/05/25 12:19 Dose: Not Given Nicotine (Nicotine 21 Mg Patch.Td24) 21 mg TRANSDERMA DAILY PRN PRN Reason: Nicotine Cravings Nicotine Polacrilex (Nicotine Polacrilex 2 Mg Gum) 2 mg BUCCAL Q2H PRN PRN Reason: Nicotine Cravings Olanzapine (Olanzapine 5 Mg Tablet) 5 mg PO TID PRN PRN Reason: agitation Olanzapine (Olanzapine 5 Mg Tablet) 5 mg PO DAILY [facility] Last Admin: 02/05/25 08:03 Dose: 5 mg Omeprazole (Omeprazole 40 Mg Capsule.Dr) 40 mg PO DAILY@0630 [facility] Last Admin: 02/05/25 06:50 Dose: 40 mg Trazodone HCl (Trazodone Hcl 50 Mg Tablet) 50 mg PO BEDTIME MRX1 PRN PRN Reason: Insomnia Allergies Allergies Allergy/AdvReac Type Severity Reaction Status Date / Time No Known Allergies Allergy Verified 01/26/25 16:28 Assessment & Plan Assessment & Plan (1) Depression: Status: Acute Code(s): F32.A - Depression, unspecified (2) Dysphagia: Qualifiers: Dysphagia type: oropharyngeal phase Qualified Code(s): R13.12 - Dysphagia, oropharyngeal phase Status: Acute Code(s): R13.10 - Dysphagia, unspecified (3) CVA (cerebral vascular accident): Status: Acute Code(s): I63.9 - Cerebral infarction, unspecified (4) HTN (hypertension): Qualifiers: Hypertension type: primary hypertension Qualified Code(s): I10 - Essential (primary) hypertension Status: Resolved Code(s): I10 - Essential (primary) hypertension (5) GERD (gastroesophageal reflux disease): Qualifiers: Esophagitis presence: without esophagitis Qualified Code(s): K21.9 - Gastro-esophageal reflux disease without esophagitis Status: Acute Code(s): K21.9 - Gastro-esophageal reflux disease without esophagitis Plan 39-year-old male with history of previous suicide attempt by laceration of his neck and subsequent discomfort in swallowing with no findings on the swallow study done by speech therapist. He continues to want to see a specialist. He was admitted to our unit for safety and stabilization. Current medications were reviewed and maintained. Consider a GI consult for next week. Hospital course: 01/29: Continue current plans and regimen 01/30 Inquired about events leading up to this admission. Patient reports that he came to hospital since i had a problem with my throat but agrees at ED, he did say he was suicidal; he says the only reason he had SI was because his throat was hurting so much. However he also says he's been depressed the past several weeks. On inquiry, he explains Because of trouble swallowing he stopped taking medications which made his existing depression worse. Patient said he is still depressed and though does not think he would, is still afraid [he] might cut his throat again.. Patient acknowledged that in September 2024 he tried to cut own throat because at that time he says i was having too much problems in my life... I regret doing it; i went to [facility]. He shares that some of the problems included that he had a stroke and other problems such as feeling depressed. Regarding psych history: Patient does not know his diagnosis. He denies any AVH or paranoid ideations. Some trouble fully assessing due to language barrier but It does not seem that he has a history of manic type episodes or behaviors. Denies history of psychiatric admission; denies any drug or alcohol use; endorses that he used alcohol in the past but not for quite some time. He does not know the names of his medications but gives permission for team, technical report writer, social service worker to call his family and providers. Regarding questions about his childhood , patient says I do not recall which could either be he does not want to talk about it, or has some kind of impairment, status post stroke? Working Plan: Patient continues to report dysphagia though swallowing eval was reportedly mild. Patient very much wants his throat assessed and this remains a significant source of anxiety for him. He agrees to medication management and getting back on his home medications, deferring to technical report writer. -patient was not restarted on medications when transferred back to psychiatric unit Restart aspirin 81 mg: Patient has history of stroke Restart atorvastatin 80 mg: Patient has history of stroke, Will restart PPI will restart Wellbutrin ER 150 mg and likely titrate given that patient has continued depression Will restart Zyprexa 5 mg daily; will hold off from restarting the additional Zyprexa 10 mg q.h.s. since not sure what it is for yet Will hold off restarting Lexapro 20 mg for now; patient seems to deny any history of manic type behaviors however for some reason he is also on Zyprexa 15 mg total daily dose Patient was hypertensive prior to coming to the unit because he had been off his antihypertensives 4 weeks, losartan and lisinopril Will hold off restarting lisinopril or losartan since currently blood pressures WNL Will get GI consult to help assess Reach out for collateral Hospital course: 01/31 Patient discussed in more detail history. He says Last May, when i got stroke friends stopped being helpful; they left...Everything changed after the stroke which is the onset of his depression; prior to this pt was doing well, happy. Not working, lonely, out of a job, and then loss of relationship worsened depression which led up to pt cutting his throat in September. Since then, pt has felt isolated. He says he's been unable to work, feeling physically too weak however alludes to him being too depressed to work. Patient denies any SI at all however he is very worried about his throat issue and is hoping for endoscopy; GI consult pending. Currently he feels that his depression is a little better and says his mood is normal. He agrees to titration of Wellbutrin 02/01 Patient reports mood is normal and continues to deny any SI. Agrees to Wellbutrin titration and medication management. Collateral from his sister reports patient had an upper endoscopy that was unremarkable; Dr. Guzman, bankruptcy paralegal reports that there was and upper endoscopy and will try to get the records; will likely do barium swallow. Rubber Goods Cutter Finisher discussed that prior endoscopy seems to have been unremarkable however patient still seems fixated on getting help with [his] throat patient however also asked to be discharge soon, feeling he is getting ready to go home Patient's sister reported that prior to his stroke, patient was happy, no depression, no problems 02/03 pt says his mood is normal and no SI but still with depression; focused on wanting endoscopy but otherwise wants to discharge next week. -starting zoloft with which pt agrees (chosen since least likely to cause htn) PLAN: CV Q 15 minute checks start zoloft aspirin 81 mg: Patient has history of stroke atorvastatin 80 mg: Patient has history of stroke, omeprazole 40 mg daily; patient on pantoprazole 40 mg as an outpatient Hold lisinopril; patient currently normotensive Hold losartan; patient currently normotensive INCREASE TO Wellbutrin ER 450 mg and likely titrate given that patient has continued depression Zyprexa 5 mg qhs; moved to bedtime to help avoid daytime sedation; still not sure that patient needs this Hold Lexapro 20 mg for now; patient seems to deny any history of manic type behaviors however for some reason he is also on Zyprexa 15 mg total daily dose Will get GI consult to help assess Reach out for collateral Swallow eval: Patient seen for clinical swallow with remote billing spec assisting/translating. Patient presents with most aspects of swallow WFL, however describes globus sensation and food getting stuck/closing throat at the level of the esophagus. For further assessment, patient will need GI consult. Would recommend softer diet: Chopped/Advanced (NDD3) continue on thin liquids, larger pills crushed in puree. PROFESSOR OF FOOD BIOCHEMISTRY to f/u X1 for toleration of diet. RNs on floor advised. Time Spent With Patient Time: Total time managing care of this patient today ____ minutes.
[2025-02-05] MEDS: lisinopriL 20 MG TABLET PO (18:51)
[2025-02-05] MEDS: traZODone HCL 50 MG TABLET PO (20:15)
--- NOTE | 2025-02-06 | ECG_ITS ---
Test Reason : chest discomfort Blood Pressure : */* mmHG Vent. Rate : 119 BPM Atrial Rate : 119 BPM P-R Int : 120 ms QRS Dur : 88 ms QT Int : 320 ms P-R-T Axes : 54 40 42 degrees QTcB Int : 450 ms Sinus tachycardia Minimal voltage criteria for LVH, may be normal variant ( Sokolow-Clifton ) Nonspecific T wave abnormality Abnormal ECG When compared with ECG of 27-Jan-2025 13:58, Vent. rate has increased by [address] now depressed in Inferior leads ST no longer elevated in Anterior leads Inverted T waves have replaced nonspecific T wave abnormality in Inferior leads Nonspecific T wave abnormality now evident in Lateral leads Referred By: Earle Verduzco Electronically Signed By: Irineo Turner
[2025-02-06] MEDS: traZODone HCL 50 MG TABLET PO ×2 (02:34→20:40)
[2025-02-06] MEDS: Omeprazole 40 MG CAPSULE.DR PO (06:42)
[2025-02-06 08:00] VITALS: BP 116/75; PULSE 113; RESP 18; TEMP 36.6; O2SAT 116
[2025-02-06] MEDS: buPROPion HCl XL 150 MG TAB.ER.24H 450 MG PO (08:16)
[2025-02-06] MEDS: OLANZapine 5 MG TABLET PO (08:17)
[2025-02-06] MEDS: Atorvastatin Calcium 40 MG TABLET 80 MG PO (08:17)
[2025-02-06] MEDS: Aspirin Enteric Coated 81 MG TABLET.DR PO (08:18)
[2025-02-06] MEDS: lisinopriL 20 MG TABLET PO (08:18)
[2025-02-06] MEDS: Mineral Oil/Petrolatum,White 106 GM Tube 1 APPL TOPICAL (08:19)
[2025-02-06 14:18] VITALS: BP 142/82; PULSE 123
[2025-02-06] MEDS: Acetaminophen 325 MG TABLET 650 MG PO (14:57)
[2025-02-06] MEDS: Famotidine 20 MG TABLET PO ×2 (15:20→20:40)
--- NOTE | 2025-02-06 17:34 | P.PNPSI_ITS ---
Subjective Subjective Date of Service: 02/06/25 Reason For Visit: depression Interim History: Met with patient; discussed with team; used electronic animal science professor Diagnostics Vital Signs (24Hr): Vital Signs - 24 hr 02/05/25 18:51 02/05/25 19:47 02/05/25 20:05 Temperature 98.5 F Pulse Rate 121 H 116 H Respiratory Rate 15 Blood Pressure 167/115 H 142/94 H 130/100 H Pulse Oximetry 99 Oxygen Delivery Method 02/06/25 08:00 02/06/25 14:18 Temperature 97.8 F Pulse Rate 113 H 123 H Respiratory Rate 18 Blood Pressure 116/75 142/82 H Pulse Oximetry 116 H Oxygen Delivery Method Room Air Room Air BMI result Body Mass Index 20.8 Labs 01/29/25 08:23 Medications Medications Current Medications Acetaminophen (Acetaminophen 325 Mg Tablet) 650 mg PO Q6H PRN PRN Reason: Headache/Pain, Scale 1-10 Last Admin: 02/06/25 14:57 Dose: 650 mg Al Hydroxide/Mg Hydroxide (Magnesium Hydrox/Alum Hydrox 30 Ml Oral.Susp) 30 ml PO Q6H PRN PRN Reason: Heartburn/Nausea Aspirin (Aspirin Enteric Coated 81 Mg Tablet.Dr) 81 mg PO DAILY COUNT INCLUDES THE [facility] Last Admin: 02/06/25 08:18 Dose: 81 mg Atorvastatin Calcium (Atorvastatin Calcium 40 Mg Tablet) 80 mg PO DAILY COUNT INCLUDES THE [facility] Last Admin: 02/06/25 08:17 Dose: 80 mg Bupropion HCl (Bupropion Hcl Xl 150 Mg Tab.Er.24h) 450 mg PO DAILY COUNT INCLUDES THE [facility] Last Admin: 02/06/25 08:16 Dose: 450 mg Famotidine (Famotidine 20 Mg Tablet) 20 mg PO BID COUNT INCLUDES THE [facility] Hydroxyzine HCl (Hydroxyzine Hcl 25 Mg Tablet) 25 mg PO Q6H PRN PRN Reason: mild anxiety Last Admin: 02/05/25 20:15 Dose: 25 mg Lisinopril (Lisinopril 20 Mg Tablet) 20 mg PO DAILY COUNT INCLUDES THE [facility]; Protocol Last Admin: 02/06/25 08:18 Dose: 20 mg Magnesium Hydroxide (Milk Of Magnesia 30 Ml Oral.Susp) 30 ml PO DAILY PRN PRN Reason: Constipation Multi-Ingred Cream/Lotion/Oil/Oint (Mineral Oil/Petrolatum,White 106 Gm Tube) 1 appl TOPICAL BID@0900,1400 COUNT INCLUDES THE [facility]; Protocol Last Admin: 02/06/25 12:40 Dose: Not Given Nicotine (Nicotine 21 Mg Patch.Td24) 21 mg TRANSDERMA DAILY PRN PRN Reason: Nicotine Cravings Nicotine Polacrilex (Nicotine Polacrilex 2 Mg Gum) 2 mg BUCCAL Q2H PRN PRN Reason: Nicotine Cravings Olanzapine (Olanzapine 5 Mg Tablet) 5 mg PO DAILY COUNT INCLUDES THE [facility] Last Admin: 02/06/25 08:17 Dose: 5 mg Omeprazole (Omeprazole 40 Mg Capsule.Dr) 40 mg PO DAILY@0630 COUNT INCLUDES THE [facility] Last Admin: 02/06/25 06:42 Dose: 40 mg Trazodone HCl (Trazodone Hcl 50 Mg Tablet) 50 mg PO BEDTIME MRX1 PRN PRN Reason: Insomnia Last Admin: 02/06/25 02:34 Dose: 50 mg Allergies Allergies Allergy/AdvReac Type Severity Reaction Status Date / Time No Known Allergies Allergy Verified 01/26/25 16:28 Assessment & Plan Assessment & Plan (1) Depression: Status: Acute Code(s): F32.A - Depression, unspecified (2) Dysphagia: Qualifiers: Dysphagia type: oropharyngeal phase Qualified Code(s): R13.12 - Dysphagia, oropharyngeal phase Status: Acute Code(s): R13.10 - Dysphagia, unspecified (3) CVA (cerebral vascular accident): Status: Acute Code(s): I63.9 - Cerebral infarction, unspecified (4) HTN (hypertension): Qualifiers: Hypertension type: primary hypertension Qualified Code(s): I10 - Essential (primary) hypertension Status: Resolved Code(s): I10 - Essential (primary) hypertension (5) GERD (gastroesophageal reflux disease): Qualifiers: Esophagitis presence: without esophagitis Qualified Code(s): K21.9 - Gastro-esophageal reflux disease without esophagitis Status: Acute Code(s): K21.9 - Gastro-esophageal reflux disease without esophagitis Plan 39-year-old male with history of previous suicide attempt by laceration of his neck and subsequent discomfort in swallowing with no findings on the swallow study done by speech therapist. He continues to want to see a specialist. He was admitted to our unit for safety and stabilization. Current medications were reviewed and maintained. Consider a GI consult for next week. Hospital course: 01/29: Continue current plans and regimen 01/30 Inquired about events leading up to this admission. Patient reports that he came to hospital since i had a problem with my throat but agrees at ED, he did say he was suicidal; he says the only reason he had SI was because his throat was hurting so much. However he also says he's been depressed the past several weeks. On inquiry, he explains Because of trouble swallowing he stopped taking medications which made his existing depression worse. Patient said he is still depressed and though does not think he would, is still afraid [he] might cut his throat again.. Patient acknowledged that in September 2024 he tried to cut own throat because at that time he says i was having too much problems in my life... I regret doing it; i went to [facility]. He shares that some of the problems included that he had a stroke and other problems such as feeling depressed. Regarding psych history: Patient does not know his diagnosis. He denies any AVH or paranoid ideations. Some trouble fully assessing due to language barrier but It does not seem that he has a history of manic type episodes or behaviors. Denies history of psychiatric admission; denies any drug or alcohol use; endorses that he used alcohol in the past but not for quite some time. He does not know the names of his medications but gives permission for team, proposal writer, foster care social worker to call his family and providers. Regarding questions about his childhood , patient says I do not recall which could either be he does not want to talk about it, or has some kind of impairment, status post stroke? Working Plan: Patient continues to report dysphagia though swallowing eval was reportedly mild. Patient very much wants his throat assessed and this remains a significant source of anxiety for him. He agrees to medication management and getting back on his home medications, deferring to proposal writer. -patient was not restarted on medications when transferred back to psychiatric unit Restart aspirin 81 mg: Patient has history of stroke Restart atorvastatin 80 mg: Patient has history of stroke, Will restart PPI will restart Wellbutrin ER 150 mg and likely titrate given that patient has continued depression Will restart Zyprexa 5 mg daily; will hold off from restarting the additional Zyprexa 10 mg q.h.s. since not sure what it is for yet Will hold off restarting Lexapro 20 mg for now; patient seems to deny any history of manic type behaviors however for some reason he is also on Zyprexa 15 mg total daily dose Patient was hypertensive prior to coming to the unit because he had been off his antihypertensives 4 weeks, losartan and lisinopril Will hold off restarting lisinopril or losartan since currently blood pressures WNL Will get GI consult to help assess Reach out for collateral Hospital course: 01/31 Patient discussed in more detail history. He says Last May, when i got stroke friends stopped being helpful; they left...Everything changed after the stroke which is the onset of his depression; prior to this pt was doing well, happy. Not working, lonely, out of a job, and then loss of relationship worsened depression which led up to pt cutting his throat in September. Since then, pt has felt isolated. He says he's been unable to work, feeling physically too weak however alludes to him being too depressed to work. Patient denies any SI at all however he is very worried about his throat issue and is hoping for endoscopy; GI consult pending. Currently he feels that his depression is a little better and says his mood is normal. He agrees to titration of Wellbutrin 02/01 Patient reports mood is normal and continues to deny any SI. Agrees to Wellbutrin titration and medication management. Collateral from his sister reports patient had an upper endoscopy that was unremarkable; Dr. Guzman, assistant professor of religion reports that there was and upper endoscopy and will try to get the records; will likely do barium swallow. Flame Brazing Machine Operator discussed that prior endoscopy seems to have been unremarkable however patient still seems fixated on getting help with [his] throat patient however also asked to be discharge soon, feeling he is getting ready to go home Patient's sister reported that prior to his stroke, patient was happy, no depression, no problems 02/03 pt says his mood is normal and no SI but still with depression; focused on wanting endoscopy but otherwise wants to discharge next week. -starting zoloft with which pt agrees (chosen since least likely to cause htn) PLAN: CV Q 15 minute checks start zoloft aspirin 81 mg: Patient has history of stroke atorvastatin 80 mg: Patient has history of stroke, omeprazole 40 mg daily; patient on pantoprazole 40 mg as an outpatient Hold lisinopril; patient currently normotensive Hold losartan; patient currently normotensive INCREASE TO Wellbutrin ER 450 mg and likely titrate given that patient has continued depression Zyprexa 5 mg qhs; moved to bedtime to help avoid daytime sedation; still not sure that patient needs this Hold Lexapro 20 mg for now; patient seems to deny any history of manic type behaviors however for some reason he is also on Zyprexa 15 mg total daily dose Will get GI consult to help assess Reach out for collateral Swallow eval: Patient seen for clinical swallow with remote animal science professor assisting/translating. Patient presents with most aspects of swallow WFL, however describes globus sensation and food getting stuck/closing throat at the level of the esophagus. For further assessment, patient will need GI consult. Would recommend softer diet: Chopped/Advanced (NDD3) continue on thin liquids, larger pills crushed in puree. MARKETING PRODUCTION COORDINATOR to f/u X1 for toleration of diet. RNs on floor advised. Time Spent With Patient Time: Total time managing care of this patient today ____ minutes.
[2025-02-06 20:00] VITALS: BP 98/61; PULSE 121; RESP 16; TEMP 36.6; O2SAT 98
[2025-02-06] MEDS: hydrOXYzine HCL 25 MG TABLET PO (20:39)
[2025-02-07 07:54] VITALS: BP 106/79; PULSE 92; RESP 18; TEMP 36.1; O2SAT 100
[2025-02-07] MEDS: OLANZapine 5 MG TABLET PO (08:59)
[2025-02-07] MEDS: buPROPion HCl XL 150 MG TAB.ER.24H 450 MG PO (09:00)
[2025-02-07] MEDS: Atorvastatin Calcium 40 MG TABLET 80 MG PO (09:00)
[2025-02-07] MEDS: Aspirin Enteric Coated 81 MG TABLET.DR PO (09:00)
[2025-02-07] MEDS: lisinopriL 20 MG TABLET PO (09:00)
[2025-02-07] MEDS: Omeprazole 40 MG CAPSULE.DR PO (09:00)
[2025-02-07] MEDS: Famotidine 20 MG TABLET PO (09:00)
--- NOTE | 2025-02-07 09:08 | PM.PSYDC ---
DS: Providers Provider Date of Service: 02/07/25 Date of admission: 01/28/25 11:05 Date of discharge: 02/07/25 Primary care physician: Unknown Physician Attending physician on admission: Earle Verduzco Consults: 01/30/25 13:45 Consult to Gastroenterology Routine Consulting Provider: [facility] Reason for consultation: dysphagia Has provider been notified: No Attending physician on discharge: Earle Verduzco DS: Diagnosis Discharge Diagnosis (1) Depression: Status: Acute (2) Dysphagia: Status: Acute (3) CVA (cerebral vascular accident): Status: Acute (4) HTN (hypertension): Status: Resolved (5) GERD (gastroesophageal reflux disease): Status: Acute DS: Medications Discharge Medications Home Medications: Previous Rx's ?Medication ?Instructions ?Recorded aspirin 81 mg tablet,delayed 81 mg PO DAILY 30 days #30 tabs 02/07/25 release atorvastatin 80 mg tablet 80 mg PO BEDTIME 30 days #30 tabs 02/07/25 bupropion HCl 450 mg 24 hr tablet, 450 mg PO DAILY 30 days #30 tabs 02/07/25 extended release escitalopram oxalate 10 mg tablet 10 mg PO DAILY 30 days #30 tabs 02/07/25 famotidine 20 mg tablet 20 mg PO DAILY 30 days #30 tabs 02/07/25 hydroxyzine HCl 25 mg tablet 25 mg PO TID PRN Anxiety 30 days 02/07/25 #60 tabs lisinopril 20 mg tablet 20 mg PO DAILY 30 days #30 tabs 02/07/25 olanzapine 5 mg tablet 5 mg PO BEDTIME 30 days #30 tabs 02/07/25 pantoprazole 40 mg tablet,delayed 40 mg PO DAILY@0630 30 days #30 02/07/25 release tabs trazodone 50 mg tablet 50 mg PO BEDTIME PRN Insomnia 30 02/07/25 days #30 tabs DS: Summary Time Spent with Patient Time attestation: Total time managing care of this patient today ____ minutes. Discharge Plan Discharge Anticipated Discharge Date/Time: 02/07/25 10:00 Patient Disposition: Home, Self-Care Discharge Diagnosis: MDD, recurrent, severe without psychosis, in partial remission Referrals: Dr. Quan: [facility](psychiatry) [Other] - 02/23/25 9:15 am (Hospital discharge appointment for psychiatry Appointment is in office at [facility] ) [facility]: [Other] - 02/09/25 11:40 am (Hospital discharge appointment with your primary care doctor at [facility] ) Discharge Medications: New lisinopril 20 mg Tablet 20 mg PO DAILY 30 Days Qty: 30 0RF Protocol: Hold for SBP< HOLD for SBP < : 90 trazodone 50 mg Tablet 50 mg PO BEDTIME PRN (Reason: Insomnia) 30 Days Qty: 30 0RF famotidine 20 mg Tablet 20 mg PO DAILY 30 Days Qty: 30 0RF Continued atorvastatin 80 mg Tablet 80 mg PO BEDTIME 30 Days Qty: 30 0RF aspirin 81 mg Tablet,Delayed Release (Dr/Ec) 81 mg PO DAILY 30 Days Qty: 30 0RF pantoprazole 40 mg Tablet,Delayed Release (Dr/Ec) 40 mg PO DAILY@0630 30 Days Qty: 30 0RF hydroxyzine HCl 25 mg Tablet 25 mg PO TID PRN (Reason: Anxiety) 30 Days Qty: 60 0RF Changed olanzapine 5 mg Tablet 5 mg PO BEDTIME 30 Days Qty: 30 0RF escitalopram oxalate 10 mg tablet 10 mg PO DAILY 30 Days Qty: 30 0RF bupropion HCl 450 mg tablet extended release 24 hr 450 mg PO DAILY 30 Days Qty: 30 0RF Discontinued olanzapine 10 mg Tablet 10 mg PO BEDTIME Discharge Orders: Discharge Order (Routine); Ordered 02/07/25 Ordered By: Earle Verduzco Diet: Regular diet Activity on Discharge: As tolerated Stand Alone Forms: Patient Portal Discharge page Print Language: Maltese Care Plan Goals: Maintain mood and safe behaviors Take medications as prescribed Practice coping skills Continue with outpatient providers and reach out to them as needed Health Concerns: Mood stability and behaviors Hypertension hx of CVA GERD Plan of Treatment: Follow up with your PCP, psychiatric provider and other outpatient providers regarding above concerns Take medications as prescribed Assessment: Risk assessment at time of discharge:? Patient was interviewed prior to discharge and found to be fully oriented and without any SI or HI. Patient has improved insight and judgment and wants to continue treatment. Patient is not in imminent risk of harm to self or others and has a safety plan that includes presenting to the closest ER or calling 911 if feeling unsafe.? Patient has been observed closely by nursing and unit staff throughout admission; patient has not engaged in any behaviors that suggest dangerousness to self or others and has demonstrated appropriate behaviors and impulse control
== END 2025-02-07 10:58 | disposition home or self-care (01) | DRG 751 ==
PROVIDERS: Admitting Provider Psychiatry & Neurology Psychiatry; Visit Provider Psychiatry & Neurology Psychiatry
DX: F33.2 Major depressive disorder, recurrent severe without psychotic features (principal); I10 Essential (primary) hypertension; K21.9 Gastro-esophageal reflux disease without esophagitis; Z91.51 Personal history of suicidal behavior; Z86.73 Personal history of transient ischemic attack (TIA), and cerebral infarction without residual deficits; R13.10 Dysphagia, unspecified; Z79.82 Long term (current) use of aspirin; Z79.899 Other long term (current) drug therapy
CPT/HCPCS: 36415; 80053; 82947; 93005

== ENCOUNTER → 2025-01-28 11:05 | Outpatient (BNV) | payer SELFPAY | PROVIDERS: Admitting Provider Psychiatry & Neurology Psychiatry; Visit Provider Psychiatry & Neurology Psychiatry | DX: F32.2 Major depressive disorder, single episode, severe without psychotic features (principal); R13.12 Dysphagia, oropharyngeal phase; I63.9 Cerebral infarction, unspecified; I10 Essential (primary) hypertension; K21.9 Gastro-esophageal reflux disease without esophagitis | CPT/HCPCS: 90792; 99231; 99232 ==

== ENCOUNTER 2025-02-07 10:57 | Outpatient (REF) | payer MEDICAID, OTHER, SELFPAY ==
--- NOTE | ~2025-02-07 | FL_ITS ---
EXAMINATION: XR BARIUM SWALLOW CLINICAL INFORMATION: Dysphagia COMPARISON: None available. TECHNIQUE: Routine barium swallow was performed upright and lying position. FINDINGS: Following oral administration of thick barium and effervescent granules there is normal propagation bolus from the oral cavity through the pharynx, esophagus into stomach without any evidence of obstruction, narrowing or stricture. No laryngeal penetration or aspiration seen. On oral administration of saltine crackers coated with barium there is normal oral mastication and propagation of bolus from the oral cavity into the esophagus. There is transitional holdup in the distal and mid esophagus likely secondary to decreased peristalsis or mucosal dehydration. However administration of thin barium there is spontaneous passage of solid food. And oral administration of barium coated tablet there is spontaneous passage from the oral cavity, esophagus into stomach. On placing patient in prone lying position and oral administration of thin barium there is normal propagation bolus from the oral contrast cavity with normal distention of esophagus. No obstruction, narrowing or stricture seen. On placing patient in supine lying there is no gastroesophageal reflux seen. No hiatal hernia. FLUOROSCOPY TIME: 1 minute 42 seconds DOSE AREA PRODUCT: 1478 uGy-m2 (microgray-meter squared) FL/FL barium swallow IMPRESSION: Mild holdup of solid food in the mid and distal esophagus likely secondary to decreased peristalsis or esophageal dryness or dehydration. However this cleared with subsequent oral administration of thin barium. No laryngeal penetration or aspiration seen. No retention of food residue in valleculae or piriform sinuses. Electronically signed by: Ezequiel Rehman MD 02/09/2025 09:48 AM EDT
--- OUTSIDE RECORDS SUMMARY | 2025-02-07 12:42 | XMS_ITS | Encounter Summary ---
Author Organization [facility] r Address [address] [place] [address] Phone Care Team Providers Care Exhaust Emissions Automotive Technician Name Role Phone Unavailable Primary Care Provider Unavailabl e Encounter Details Date Type Department Care Team (Late st Contact Info) Description 12/12/2019 Telephone Eye [facility] [address] [place] [address] Tasneem Harp MD, PhD [address] [place] [id number] Social History Tobacco Use Types Packs/Day Years [...]
--- OUTSIDE RECORDS SUMMARY | 2025-02-07 12:42 | XMS_ITS | Encounter Summary ---
Author Organization [employer] Address [address] [facility] [facility] [address] [place] [address] Care Team Providers Care Custodian Blood Bank Name Role Phone Miguel Kwok MD Primary Care Provider Reason for Visit * Reason Comments Med Change Request Encounter Details Date Type Department Care Team ([facility] st Contact Info) Description 08/04/2024 Refill [facility] MAIN [facility] [address] [place] [address] Melvin Ortiz MD [address] [place] [address] Social History Tobacco Use Types Packs/Day Years [...] Team (Late st Contact Info) Description 02/09/2025 11:40 AM EDT Office Visit [facility] MAIN ADULT [address] [place] [id number] Miguel Kwok MD [address] [place] [address] documented as of this encounter Visit Diagnoses Not on filedocumented in this encounter Care Teams Custodian Blood Bank Relationship Specialty Start Date End Date Miguel Kwok MD [address] [place] [id number] PCP - General 10/12/21 documented as of this encounter
--- OUTSIDE RECORDS SUMMARY | 2025-02-07 12:42 | XMS_ITS | Encounter Summary ---
Author Organization [employer] Address [address] [facility] 7 [place] [address] Care Team Providers Care Boat Operator Name Role Phone Miguel Kwok MD Primary Care Provider [phone] Reason for Visit * Reason Onset Date Comments Advice Only 08/29/2024 Encounter Details Date Type Department Care Team ([facility] Contact Info) Description 08/29/2024 Telephone [facility] [address] [place] [address] Miguel Kwok MD [address] [place] [address] Advice Only Social History Tobacco Use Types [...] He's Been Calling for 2. Weeks Now. Hungarian Creole Language Assessment Notes 1st attempt no answer. msrn 2nd attempt no answer. msrn documented in this encounter Plan of Treatment Upcoming Encounters Date Type Department Care Team (Late st Contact Info) Description 02/09/2025 11:40 AM EDT Office Visit [facility] [address] [place] [phone] Miguel Kwok MD [address] [place] [phone] documented as of this encounter Visit Diagnoses Not on filedocumented in this encounter Care Teams Boat Operator Relationship Specialty Start Date End Date Miguel Kwok MD [address] [place] [phone] PCP - General 10/12/21 documented as of this encounter
--- OUTSIDE RECORDS SUMMARY | 2025-02-07 12:42 | XMS_ITS | Referral Summary ---
Author Organization [facility] r Address [address] [place] [address] Phone Care Team Providers Care Information Services Tech Name Role Phone Unavailable Primary Care Provider Unavailabl e Encounters Date Type Department Care Team Description 01/13/2025 Telephone Department of Otolaryngology [address] [place] [address] Pcp-Confirmed, No Appointment from Last [...] for recheck with Dr. Palomares in [place] because he is [place] [facility] [place], sooner if increased pain, redness, discharge, or as needed. As long as cornea epi defect healed then, can see me in [place] Jun 05 for POM 1 check with [...] Patient would like to be seen in [place]. Assessment & Plan (12/12/2019 3:28 PM EST): [...] (12/12/2019): Added automatically from request for surgery [id number] Social History Tobacco Use Types Packs/Day Years [...] on file Medical Devices Implanted Type Area Brakeshoe Repairer Device Identifier Shelf Expiration Date Model / Serial / Lot Kit Tissue Closure Duo * Sealant Fibri Glue Tisseel 4ml Frozen Kit Fibrin Sealant - [id number] - [id number] Implanted:Qty: 1 on 05/10/2020 by Tasneem Harp MD, PhD at [facility] Left: Eye Mancera/Internatio nal 06/11/2021 [id number] / [id number] 1 / [id number]
--- OUTSIDE RECORDS SUMMARY | 2025-02-07 12:42 | XMS_ITS | Encounter Summary ---
Author Organization [employer] Address [address] [place] [address] [address] h [address] [place] [id number] Care Team Providers Care Mig Tig Welder Name Role Phone Miguel Kwok MD Primary Care Provider [phone] Encounter Details Date Type Department Care Team (Late st Contact Info) Description 09/12/2022 Telephone [facility] [address] [place] [address] Alisa Echols Social History Tobacco Use Types [...] Description 02/09/2025 11:40 AM EDT Office Visit [facility] MAIN ADULT [address] [place] [address] Miguel Kwok MD [address] [place] [address] documented as of this encounter Visit Diagnoses Not on filedocumented in this encounter Care Teams Mig Tig Welder Relationship Specialty Start Date End Date Miguel Kwok MD [address] [place] [address] PCP - General 10/12/21 documented as of this encounter
--- OUTSIDE RECORDS SUMMARY | 2025-02-07 12:42 | XMS_ITS | Clinical Summary ---
Author Organization [employer] Address [address] [facility] [address] [place] [address] Care Team Providers Care Marshmallow Machine Worker Name Role Phone Miguel Kwok MD Primary Care Provider [phone] Allergies No known active allergies Medications * [...] a day at bedtime 30 tablet 12/18/19 25 9:11 AM EST 025 Active Additional Information Patient not taking.Reported on 01/23/2025 hydrOXYzine HCl (Atarax) 25 MG tablet take 1 tablet by mouth every 8 hours as needed for anxiety 90 tablet 12/18/19 25 9:11 AM EST 025 Active Additional Information Patient not taking.Reported on 01/23/2025 Diclofenac Sodium 1 % gelIndications:Ne ck pain Apply 2 g topically 3 times daily. 100 g 1 12/29/19 12:28 PM EDT Active Additional [...] evening meal, and at bedtime. 355 mL 12/29/19 12:28 PM EDT Active Additional Information Patient not taking.Reported on 01/23/2025 acetaminophen (Tylenol) 500 MG tabletIndications :Palpitation,Pene trating traumatic injury of neck,Sore throat Take 1 tablet (500 mg) by mouth every 8 (eight) hours if needed for moderate pain or mild pain. 30 tablet 2 12/29/19 12:28 PM EDT Active Additional Information Patient not taking.Reported on 01/23/2025 venlafaxine XR (Effexor XR) 75 MG 24 hr capsule take 3 cap Orally daily 90 capsule 2 Active Additional Information Patient not taking.Reported on 01/23/2025 aspirin 81 MG EC tablet Take 1 tablet orally daily for 30 days 30 tablet Active atorvastatin (Lipitor) 80 MG tablet Take 1 tablet orally bedtime for 30 days 30 tablet Active escitalopram (Lexapro) 10 MG tablet Take 1 tablet (10 mg) orally daily for 30 days 30 tablet Active famotidine (Pepcid) 20 MG tablet Take 1 tablet orally daily 30 tablet Active hydrOXYzine HCl (Atarax) 25 MG tablet Take 1 tablet (25 mg) orally 3 times a day As Needed for Anxiety for 30 days 60 tablet Active lisinopril 20 MG tablet Take 1 tablet (20 mg) orally daily for 30 days 30 tablet Active pantoprazole (ProtoNix) 40 MG EC tablet Take 1 tablet (40 mg) orally daily at 6:30 am for 30 days 30 tablet Active traZODone (Desyrel) 50 MG tablet TAke 1 tablet (50 mg) orally bedtime As Needed for Insomnia for 30 days 30 tablet Active OLANZapine (ZyPREXA) 5 MG tablet Take 1 tablet (5 mg) orally bedtime for 30 days 30 tablet Active buPROPion XL (Wellbutrin XL) 150 MG 24 hr tablet Take 1 tablet (150 mg) orally daily for 30 days; take with 300mg tab 30 tablet Active buPROPion XL (Wellbutrin XL) 300 MG 24 hr tablet Take 1 tablet (300 mg) orally every morning for 30 days; take with 150mg tab 30 tablet Active pantoprazole (ProtoNix) 40 MG EC tablet Take 1 tablet by mouth daily. 30 tablet 12/18/19 25 9:11 AM EST 025 2024 Discontinued(R eorder (will not trigger notification to Pharmacy)) buPROPion XL (Wellbutrin XL) 150 MG 24 hr tablet take 1 tablet by mouth every morning for 30 days 30 tablet 12/18/19 25 9:11 AM EST 025 2024 Discontinued(R eorder (will not trigger notification to Pharmacy)) OLANZapine (ZyPREXA) 5 MG tablet Take 1 tablet by mouth at bedtime 30 tablet 1 12/18/19 25 9:11 AM EST 025 2024 Discontinued(R eorder (will not trigger notification to Pharmacy)) buPROPion XL (Forfivo XL) 450 MG 24 hr tablet Take 1 tablet orally daily for 30 days 30 tablet 025 2024 Discontinued(O ther) Active Problems Problem Noted Date Diagnosed Date [...] week for recheck with Dr. Palomares in [place] because he is unable to travel to [facility] next week, sooner if increased pain, redness, discharge, or as needed. As long as cornea epi defect healed then, can see me in [place] Jun 05 for POM 1 check with refraction. 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 Date Type Department Care Team Description 01/23/2025 8:40 AM EDT Office Visit [facility] [address] [place] [id number] Miguel Kwok MD Bloating (Primary Dx) 12/28/2024 2:20 PM EDT Office Visit [facility] [address] [place] [address] Miguel Kwok MD Neck pain (Primary Dx); Palpitation; Anxiety; Penetrating traumatic injury of neck; Sore throat 12/28/2024 Telephone [facility] FINANCIAL ASSIST [address] [place] [address] [facility] 12/28/2024 Telephone [facility] FINANCIAL ASSIST [address] [place] [id number] [facility] 12/16/2024 9:40 AM EST Office Visit [facility] [address] [place] [address] Miguel Kwok MD Chronic superficial gastritis without bleeding (Primary Dx); Mood disorder due to known physiological condition, unspecified; Irritant contact dermatitis due to cosmetics 12/01/2024 3:00 PM EST Office Visit [facility] [place] [address] Miguel Kwok MD Irritant contact dermatitis due to cosmetics (Primary Dx); Mixed hyperlipidemia; HTN (hypertension), benign; Moderate episode of recurrent major depressive disorder ([facility]/HCC) 11/21/2024 Patient Outreach [facility] [place] [address] Jose Torrez 11/14/2024 10:00 AM EST Office Visit [facility] [place] [address] Miguel Kwok MD Mixed hyperlipidemia; HTN (hypertension), [...] with others, in a hotel, in a fpc, living outside on the street, on a [...] Description 02/09/2025 11:40 AM EDT Office Visit [facility] [address] [place] [id number] Miguel Kwok MD [address] [place] [address] Health Maintenance Due Date Last Done Comments HIV Screening 1983 Family Planning (PISQ) 1998 Hepatitis C Screening 2001 Hepatitis B Vaccines (1 of 3 - 19+ 3-dose series) 2002 COVID-19 Vaccine ( - 2023- season) 2024 09/10/2021, 08/10/2021 Diabetes: Hemoglobin A1C 10/01/2025 024, 08/04/2024, 07/04/2022, [...] Name Priority Date/Time Associated Diagnosis Comments POC EHRNANDEZ ID NOW STREP A Routine 12/28/2024 11:48 [...] A manually resulted (12/28/2024 11:48 AM EDT) Pathologist [facility] Rapid Strep A Screen Negative Negative, None Detected Swab 12/28/2024 11:4 8 AM EDT Miguel Kwok MD POINT OF CARE TEST ENTER/EDIT ORDERABLES Final Result * Lipid Panel, Standard (08/04/2024 7:22 PM EDT) Pathologist [facility] Cholesterol, Total 117 <200 mg/dL [facility] [employer] HDL Cholesterol 41 > OR = 40 mg/dL [facility] [employer] Triglycerides 81 <150 mg/dL [facility] [employer] LDL Cholesterol 60 mg/dL [facility] Comment: Reference range: <100 Desirable range <100 mg/dL for primary prevention; ?? <70 mg/dL for patients with CHD or diabetic patients with > or = 2 CHD risk factors. LDL-C is now calculated using the Nathalie calculation, which is a validated novel method providing better accuracy than the Friedewald equation in the estimation of LDL-C. Benjamín SS et al. VLADISLAV. 2013;310(19): 5304-1301 (http://education.VisualCV/faq/RWY801) Chol/HDLC Ratio 2.9 <5.0 (calc) [facility] Non-HDL Cholesterol 76 <130 mg/dL [facility] Comment: For patients with diabetes plus 1 [...] BLOOD ORDERABLES Final Re sult [facility] [address], [place] [address] [facility] [employer] [address] [place] [address] * (ABNORMAL) POCT A1C (08/04/2024 6:34 PM EDT) Hemoglobin A1C 6.1(A) 4.0 - 6.0 % Blood 08/04/2024 6:34 PM EDT us Melvin Ortiz MD POINT OF CARE TEST ENTER/EDIT ORDERABLES Final Result from Last 3 Months or Most Recently Relevant to Health Maintenance Insurance [facility] FULL Care Teams Marshmallow Machine Worker Relationship Specialty Start Date End Date Miguel Kwok MD [address] [place] [id number] PCP - General 10/12/21
--- OUTSIDE RECORDS SUMMARY | 2025-02-07 12:42 | XMS_ITS | Clinical Summary ---
Author Organization [facility] r Address [address] [place] [address] Phone Care Team Providers Care Fur Scraper Name Role Phone Unavailable Primary Care Provider [...] week for recheck with Dr. Palomares in [place] because he is unable to travel to [facility] [place] next week, sooner if increased pain, redness, discharge, or as needed. As long as cornea epi defect healed then, can see me in [place] Jun 05 for POM 1 check with [...] Patient would like to be seen in [place]. Assessment & Plan (12/12/2019 3:28 PM EST): [...] (12/12/2019): Added automatically from request for surgery [id number] Encounters Date Type Department Care Team Description 01/13/2025 Telephone Department of Otolaryngology [address] [facility] [address] [place] [address] Pcp-Confirmed, No Appointment from Last [...] this topic Medical Devices Implanted Type Area Cath Lab Radiology Technician Device Identifier Shelf Expiration Date Model / Serial / Lot Kit Tissue Closure Duo * Sealant Fibri Glue Tisseel 4ml Frozen Kit Fibrin Sealant - [id number] - [id number] Implanted:Qty: 1 on 05/10/2020 by Tasneem Harp MD, PhD at [facility] Left: Eye [employer]/Internatio nal 06/11/2021 [id number] / [id number] 1 / [id number]
--- OUTSIDE RECORDS SUMMARY | 2025-02-07 12:42 | XMS_ITS | Encounter Summary ---
Author Organization [facility] r Address [address] [place] [address] Phone Care Team Providers Care Bitumastic Applier Name Role Phone Unavailable Primary Care Provider Unavailabl e Reason for Visit * Reason Onset Date Comments Appointment 01/13/2025 Encounter Details Date Type Department Care Team (Late st Contact Info) Description 01/13/2025 Telephone Department of Otolaryngology [address] [address] Pcp-Confirmed, No Appointment Social History [...] Patient presents with Appointment Sugar, calling from [facility], in regard to scheduling new pt appt, Advised 7 business days TAT. Cb: [phone]; if unable to reach please call pt at [phone]. documented in this encounter Plan of Treatment Not on file documented as of this encounter Visit Diagnoses Not on filedocumented in this encounter
== END 2025-02-07 10:58 | disposition home or self-care (01) ==
LOC: HO.XRAY 10:57
PROVIDERS: Visit Provider Psychiatry & Neurology Psychiatry
DX: R13.10 Dysphagia, unspecified (principal)
CPT/HCPCS: 74220

== ENCOUNTER → 2025-02-07 10:59 | Outpatient (BNV) | payer SELFPAY | PROVIDERS: Visit Provider Radiology Diagnostic Radiology | DX: R13.10 Dysphagia, unspecified (principal) | CPT/HCPCS: 74221 ==